=== PATIENT | female | born 1965 | race Caucasian/White ===

== ENCOUNTER 2018-08-07 15:14 | Emergency (ER) | payer OTHER, MEDICAID, SELFPAY ==
[2018-08-07 15:31] VITALS: BP 119/87; PULSE 99; RESP 20; TEMP 36.8; O2SAT 98; BMI 37.7
--- NOTE | 2018-08-07 16:08 | ED_ITS ---
HPI - Nausea/Vomiting/Diarrhea <Monica Cano PA-C - Last Filed: 08/07/18 20:57> General Stated complaint: diarrhea [id number] uncontrolable Time Seen by Provider: 08/07/18 15:44 Source: patient Mode of arrival: ambulatory Limitations: no limitations History of Present Illness HPI Narrative: This 52-year-old female comes to ED secondary to greater than one-month history of diarrhea. She states that this has been intermittent, increasingly malodorous. There is mucus in the stools. She states initially there was more blood in the stool, now minimal (states she has had chronic blood in the stools for many years). Initially more explosive to where she could not even get to the bathroom. She states that she has seen her PCP for this and blood in the stools and actually has panendoscopy pending. She was given prescription anti diarrheal after Imodium stopped working and she states this is not helping at this point. She thinks that some foods may worsen symptoms as she had chocolate cake last night and states she has had approximately 10 watery stools today that smell of ?sulfur?. She has been trying to eat and drink normally but states she has not had much fluid today. She denies abdominal pain. She denies any nausea or vomiting but states she has had a lot of belchin g. She denies any known fever, chills, sweats. She has asthma and was just treated for some upper respiratory infection, denies new chest pain, dyspnea, pain or swelling in the extremities that are new. She denies any recent travel or known exposures. She denies any recent antibiotics. She states that stool studies have not been done at this point. 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 She states that she did not take her metformin last night Related Data Home Medications Medication Instructions Recorded Confirmed acetaminophen 325 - 650 mg PO Q6HP PRN 08/07/18 08/07/18 albuterol sulfate 2 puff INHALATION Q4H PRN 08/07/18 08/07/18 benzonatate 100 mg PO TID PRN 08/07/18 08/07/18 cetirizine 10 mg PO DAILY 08/07/18 08/07/18 clotrimazole [3-Day Vaginal] 08/07/18 cyclobenzaprine 10 mg PO TID PRN 08/07/18 08/07/18 fluticasone propion-salmeterol 1 puff INHALATION BID 08/07/18 08/07/18 [Advair HFA] gabapentin 600 mg PO DAILY 08/07/18 08/07/18 gabapentin 900 mg PO BID 08/07/18 08/07/18 ibuprofen 800 mg PO TID 08/07/18 08/07/18 liothyronine 100 mcg PO DAILY 08/07/18 08/07/18 metformin 500 mg PO BID 08/07/18 08/07/18 omeprazole 40 mg PO BID 08/07/18 08/07/18 Previous Rx's Medication Instructions Recorded cholestyramine (with sugar) 4 gram PO BID #378 gram 08/07/18 Allergies Allergy/AdvReac Type Severity Reaction Status Date / Time codeine [CODEINE] Allergy Unknown Unverified 05/22/17 12:44 fluconazole [From DIFLUCAN] Allergy Unknown Unverified 05/22/17 12:44 morphine [MORPHINE] Allergy Unknown Unverified 05/22/17 12:44 Penicillins [PENICILLINS] Allergy Unknown Unverified 05/22/17 12:44 All Opiates per patient Allergy Uncoded 08/07/18 15:41 Review of Systems <Monica Cano PA-C - Last Filed: 08/07/18 20:57> Review of Systems ROS Unobtainable: All systems reviewed & are unremarkable except as noted in HPI and below PFSH <Monica Cano PA-C - Last Filed: 08/07/18 20:57> Medical History (Updated 08/07/18 @ 18:51 by Monica Cano PA-C) Asthma (Chronic) Fibromyalgia (Chronic) Diabetic neuropathy (Chronic) Uncontrolled diabetes mellitus (Chronic) Surgical History (Updated 08/07/18 @ 16:13 by Monica Cano PA-C) S/P section (Resolved) S/P jaren (Resolved) Social History Smoking Status: Current every day smoker Social History Smoking Status: Current every day smoker Exam <MELY Lin Last Filed: 08/07/18 20:57> Narrative Exam Narrative: GENERAL APPEARANCE: Patient resting comfortably, in no distress. HEENT: PERRL, EOMI, no scleral icterus, normal oropharynx NECK: Supple, no masses LUNGS: Clear to auscultation bilaterally. HEART: Rate and rhythm regular, normal S1 and S2, no S3 or S4. ABDOMEN: Soft, nontender, nondistended, bowel sounds present x 4 quadrants, no masses palpable EXTREMITIES: No edema, no calf tenderness DERMATOLOGIC: No jaundice or exanthem NEUROLOGIC: Alert and oriented with normal speech and coordination Initial Vital Signs Initial Vital Signs: Vital Signs Temperature 98.2 F 08/07/18 15:31 Pulse Rate 99 H 08/07/18 15:31 Respiratory Rate 20 08/07/18 15:31 Blood Pressure 119/87 08/07/18 15:31 Pulse Oximetry 98 08/07/18 15:31 <Lucretia Sauceda DO - Last Filed: 08/08/18 08:57> Initial Vital Signs Initial Vital Signs: Vital Signs Temperature 98.2 F 08/07/18 15:31 Pulse Rate 99 H 08/07/18 15:31 Respiratory Rate 20 08/07/18 15:31 Blood Pressure 119/87 08/07/18 15:31 Pulse Oximetry 98 08/07/18 15:31 Course <MELY Lin Last Filed: 08/07/18 20:57> Additional Information: Patient appears stable while in the department. She actually left the department to go smoke while waiting for results and returned. No pathogens found on GI panel acute findings on lab work. She already has consultation for panendoscopy scheduled and advised next step is to proceed with that. Given a prescription for cholestyramine to try in the interim. Orders Ordered: Discontinued Medications Sodium Chloride (Normal Saline 0.9%) 1,000 mls @ 1,000 mls/hr IV BOLUS ONE Stop: 08/07/18 16:58 Last Infusion: 08/07/18 17:35 Dose: 0 mls/hr Admin: 08/07/18 16:35 Dose: 1,000 mls/hr Vital Signs - 8 hr 08/07/18 15:31 08/07/18 16:41 08/07/18 19:22 Temperature 98.2 F Pulse Rate 99 H 85 85 Respiratory Rate 20 Blood Pressure 119/87 130/84 Blood Pressure [Right Arm] 94/63 Pulse Oximetry 98 100 96 <Lucretia Sauceda DO - Last Filed: 08/08/18 08:57> Orders Ordered: Discontinued Medications Sodium Chloride (Normal Saline 0.9%) 1,000 mls @ 1,000 mls/hr IV BOLUS ONE Stop: 08/07/18 16:58 Last Infusion: 08/07/18 17:35 Dose: 0 mls/hr Admin: 08/07/18 16:35 Dose: 1,000 mls/hr Vital Signs - 8 hr 08/07/18 15:31 08/07/18 16:41 08/07/18 19:22 Temperature 98.2 F Pulse Rate 99 H 85 85 Respiratory Rate 20 Blood Pressure 119/87 130/84 Blood Pressure [Right Arm] 94/63 Pulse Oximetry 98 100 96 MDM - Nausea/Vomiting/Diarrhea <Monica Cano PA-C - Last Filed: 08/07/18 20:57> Lab Data Result diagrams: 08/07/18 15:40 08/07/18 15:40 Lab Results 08/07/18 08/07/18 08/07/18 Range/Units 15:40 15:40 16:28 WBC 8.4 (4.5-11.0) X10^3/uL RBC 5.57 H (4.0-5.2) X10^6/uL Hgb 16.7 H (12.0-16.0) g/dL Hct 50.2 H (36-46) % MCV 90.1 (80-100) fL MCH 30.0 (26-34) PG MCHC 33.3 (30-36) % RDW 13.3 (11.6-14.8) % Plt Count 257 (150-400) X10^3/uL Neut % (Auto) 63.7 (50-75) % Lymph % (Auto) 29.7 (25-40) % [place] % (Auto) 4.4 (3-14) % Eos % (Auto) 1.1 L (2-4) % Baso % (Auto) 1.1 (0-2) % Neut # (Auto) 5400 (5047-4881) /uL Lymph # (Auto) 2500 (3603-0004) /uL [place] # (Auto) 400 (0-900) /uL Eos # (Auto) 100 (0-450) /uL Baso # (Auto) 100 (0-100) /uL RBC Morphology Normal morphology Sodium 139 (137-145) mmol/L Potassium 4.0 (3.4-5.1) mmol/L Chloride 99 (98-107) mmol/L Carbon Dioxide 30 (22-32) mmol/L BUN 16 (7-17) mg/dL Creatinine 0.40 L (0.52-1.04) mg/dL Estimated GFR > 60.0 (>60) mL/min BUN/Creatinine Ratio 40.0 H (6-22) Glucose 331 H (70-100) mg/dL Calcium 9.5 (8.4-10.2) mg/dL Magnesium 1.4 L (1.6-2.3) mg/dL Total Bilirubin 0.7 (0.2-1.3) mg/dL AST 31 (14-36) IU/L ALT 23 (9-52) IU/L Alkaline Phosphatase 111 (38-126) U/L Total Protein 7.5 (6.3-8.2) g/dL Albumin 4.3 (3.5-5.0) g/dL Globulin 3.2 (1.7-4.1) g/dL Albumin/Globulin Ratio 1.3 (1.0-2.8) Stl C. cayetanensis PCR Not detected (Not Detect) Stool Rotavirus (PCR) Not detected (Not Detect) Stool Adenovirus (PCR) Not detected (Not Detect) Stool Astrovirus (PCR) Not detected (Not Detect) Stool Cryptosporidium PCR Not detected (Not Detect) Stl E.coli Shiga Tox PCR Not detected (Not Detect) St Sh/Enteroin Ecoli PCR Not detected (Not Detect) Stool E coli O157 PCR TNP Stl Enterotoxigenic E PCR Not detected (Not Detect) Stool EPEC (PCR) Not detected (Not Detect) Stl E. histolytica PCR Not detected (Not Detect) Stool Giardia Lamblia PCR Not detected (Not Detect) Stl P. shigelloides PCR Not detected (Not Detect) St Y.enterocolitica PCR Not detected (Not Detect) Stool Vibrio (PCR) Not detected (Not Detect) Stl Vibrio cholerae PCR Not detected (Not Detect) Stl Enteroaggr Ecoli PCR Not detected (Not Detect) Stl Norovirus GI/GII PCR Not detected (Not Detect) Campylobacter (PCR) Not detected (Not Detect) C. difficile Tox (PCR) Not detected (Not Detect) Salmonella (PCR) Not detected (Not Detect) <Lucretia Komal, DO - Last Filed: 08/08/18 08:57> Lab Data Lab Results 08/07/18 08/07/18 08/07/18 Range/Units 15:40 15:40 16:28 WBC 8.4 (4.5-11.0) X10^3/uL RBC 5.57 H (4.0-5.2) X10^6/uL Hgb 16.7 H (12.0-16.0) g/dL Hct 50.2 H (36-46) % MCV 90.1 (80-100) fL MCH 30.0 (26-34) PG MCHC 33.3 (30-36) % RDW 13.3 (11.6-14.8) % Plt Count 257 (150-400) X10^3/uL Neut % (Auto) 63.7 (50-75) % Lymph % (Auto) 29.7 (25-40) % [place] % (Auto) 4.4 (3-14) % Eos % (Auto) 1.1 L (2-4) % Baso % (Auto) 1.1 (0-2) % Neut # (Auto) 5400 (7876-0425) /uL Lymph # (Auto) 2500 (0976-7163) /uL [place] # (Auto) 400 (0-900) /uL Eos # (Auto) 100 (0-450) /uL Baso # (Auto) 100 (0-100) /uL RBC Morphology Normal morphology Sodium 139 (137-145) mmol/L Potassium 4.0 (3.4-5.1) mmol/L Chloride 99 (98-107) mmol/L Carbon Dioxide 30 (22-32) mmol/L BUN 16 (7-17) mg/dL Creatinine 0.40 L (0.52-1.04) mg/dL Estimated GFR > 60.0 (>60) mL/min BUN/Creatinine Ratio 40.0 H (6-22) Glucose 331 H (70-100) mg/dL Calcium 9.5 (8.4-10.2) mg/dL Magnesium 1.4 L (1.6-2.3) mg/dL Total Bilirubin 0.7 (0.2-1.3) mg/dL AST 31 (14-36) IU/L ALT 23 (9-52) IU/L Alkaline Phosphatase 111 (38-126) U/L Total Protein 7.5 (6.3-8.2) g/dL Albumin 4.3 (3.5-5.0) g/dL Globulin 3.2 (1.7-4.1) g/dL Albumin/Globulin Ratio 1.3 (1.0-2.8) Stl C. cayetanensis PCR Not detected (Not Detect) Stool Rotavirus (PCR) Not detected (Not Detect) Stool Adenovirus (PCR) Not detected (Not Detect) Stool Astrovirus (PCR) Not detected (Not Detect) Stool Cryptosporidium PCR Not detected (Not Detect) Stl E.coli Shiga Tox PCR Not detected (Not Detect) St Sh/Enteroin Ecoli PCR Not detected (Not Detect) Stool E coli O157 PCR TNP Stl Enterotoxigenic E PCR Not detected (Not Detect) Stool EPEC (PCR) Not detected (Not Detect) Stl E. histolytica PCR Not detected (Not Detect) Stool Giardia Lamblia PCR Not detected (Not Detect) Stl P. shigelloides PCR Not detected (Not Detect) St Y.enterocolitica PCR Not detected (Not Detect) Stool Vibrio (PCR) Not detected (Not Detect) Stl Vibrio cholerae PCR Not detected (Not Detect) Stl Enteroaggr Ecoli PCR Not detected (Not Detect) Stl Norovirus GI/GII PCR Not detected (Not Detect) Campylobacter (PCR) Not detected (Not Detect) C. difficile Tox (PCR) Not detected (Not Detect) Salmonella (PCR) Not detected (Not Detect) Discharge Plan Departure Patient Disposition: Home Clinical Impression: Diarrhea Qualifiers: Diarrhea type: unspecified type Qualified Code(s): R19.7 - Diarrhea, unspecified Discharge Date/Time: 08/07/18 19:23 Interventions: ED Discharge Assessment Last Done: 08/07/18 19:22 Instructions: DI for Diarrhea and Traveler's Diarrhea -- Adult, Gastroenteritis Diet Activity Restrictions/Additional Instructions: As we talked about, you should return to the closest emergency department should you have acutely worsening symptoms or new symptoms such as fever or vomiting. Otherwise, please drink plenty of clear fluids and stick to a bland diet, i.e. bananas, and sweetened applesauce, broth, toast. Take your diabetes medicines. I have prescribed cholestyramine for you to try for the diarrhea will you are waiting consultation (sent to [facility]). You should proceed with colonoscopy as you have planned as that would typically be the next step in testing. Prescriptions: New cholestyramine (with sugar) 4 gram powder 4 gram PO BID Qty: 378 RF: 0 No Action cyclobenzaprine 10 mg tablet 10 mg PO TID PRN (Reason: Pain, Severe) RF: 0 metformin 500 mg tablet 500 mg PO BID RF: 0 cetirizine 10 mg tablet 10 mg PO DAILY RF: 0 ibuprofen 800 mg tablet 800 mg PO TID RF: 0 benzonatate 100 mg capsule 100 mg PO TID PRN (Reason: Cough) RF: 0 liothyronine 50 mcg tablet 100 mcg PO DAILY RF: 0 gabapentin 300 mg capsule 900 mg PO BID RF: 0 gabapentin 300 mg capsule 600 mg PO DAILY RF: 0 albuterol sulfate 90 mcg/actuation HFA aerosol inhaler 2 puff inhalation Q4H PRN (Reason: Wheezing) RF: 0 3-Day Vaginal 2 % cream RF: 0 Advair HFA 45-21 mcg/actuation HFA aerosol inhaler 1 puff inhalation BID RF: 0 omeprazole 40 MG capsule,delayed release(DR/EC) 40 mg PO BID RF: 0 acetaminophen 325 MG tablet 325 - 650 mg PO Q6HP PRN (Reason: pain) RF: 0 Referrals: Garima Bergman MD [Physician] - <Lucretia Sauceda DO - Last Filed: 08/08/18 08:57> Cosign ED Attending Lanature Attestation: I was immediately available in the department for consultation. Documentation has been reviewed. I agree with assessment and plan.
[2018-08-07 16:16] LABS: Alanine Aminotransferase 23 IU/L (9-52); Albumin 4.3 g/dL (3.5-5.0); Albumin Globulin Ratio 1.3 (1.0-2.8); Alkaline Phosphatase 111 U/L (38-126); Aspartate Aminotransferase 31 IU/L (14-36); Bilirubin Total 0.7 mg/dL (0.2-1.3); Blood Urea Nitrogen 16 mg/dL (7-17); Calcium 9.5 mg/dL (8.4-10.2); Carbon Dioxide 30 mmol/L (22-32); Chloride 99 mmol/L (98-107); Estimated Glomerular Filt Rate > 60.0 mL/min (>60); Globulin 3.2 g/dL (1.7-4.1); Glucose 331 mg/dL (70-100); HEMOLYSIS 37 (0-50); Magnesium 1.4 mg/dL (1.6-2.3); Sodium 139 mmol/L (137-145); Total Protein 7.5 g/dL (6.3-8.2)
[2018-08-07 16:30] LABS: Basophils Absolute Auto 100 /uL (0-100); Basophils Percent Auto 1.1 % (0-2); Eosinophils Absolute Auto 100 /uL (0-450); Eosinophils Percent Auto 1.1 % (2-4); Hematocrit 50.2 % (36-46); Hemoglobin 16.7 g/dL (12.0-16.0); Lymphocytes Absolute Auto 2500 /uL (1100-4500); Lymphocytes Percent Auto 29.7 % (25-40); Mean Corpuscular HGB Conc 33.3 % (30-36); Mean Corpuscular Volume 90.1 fL (80-100); Monocytes Absolute Auto 400 /uL (0-900); Monocytes Percent Auto 4.4 % (3-14); Neutrophils Absolute Auto 5400 /uL (1500-7000); Neutrophils Percent Auto 63.7 % (50-75); Platelet Count 257 X10^3/uL (150-400); Red Blood Cell Count 5.57 X10^6/uL (4.0-5.2); Red Cell Distribution Width 13.3 % (11.6-14.8); White Blood Cell Count 8.4 X10^3/uL (4.5-11.0)
[2018-08-07] MEDS: SODIUM CHLORIDE 0.9% 1,000 ML 1000 ML IV (16:35)
[2018-08-07 16:41] VITALS: BP 94/63; PULSE 85; O2SAT 100
[2018-08-07 16:53] LABS: Add Manual Diff / Slide Review SLIDE REVIEW
[2018-08-07 16:54] LABS: RBC Morphology Normal Morphology
[2018-08-07 18:10] LABS: Adenovirus F 40/41 Not Detected (Not Detect); Astrovirus Not Detected (Not Detect); Campylobacter Not Detected (Not Detect); Clostridium difficile toxin AB Not Detected (Not Detect); Cryptosporidium Not Detected (Not Detect); Cyclospora cayetanensis Not Detected (Not Detect); Entamoeba histolytica Not Detected (Not Detect); Enteroaggregative E.coli Not Detected (Not Detect); Enteropathogenic E.coli Not Detected (Not Detect); Enterotoxigenic E.coli It/st Not Detected (Not Detect); Giardia lamblia Not Detected (Not Detect); Norovirus GI/GII Not Detected (Not Detect); Plesiomonsa shigelloides Not Detected (Not Detect); Rotavirus A Not Detected (Not Detect); Salmonella Not Detected (Not Detect); Shiga-like toxin-prod E.coli Not Detected (Not Detect); Shigella/Enteroinvasive E.coli Not Detected (Not Detect); Vibrio Not Detected (Not Detect); Vibrio cholerae Not Detected (Not Detect); Yersinia enterocolitica Not Detected (Not Detect)
--- NOTE | 2018-08-07 18:43 | PC.NURSE ---
Patient left the department to go smoke friends said. Provider aware and asked security who was nearby to go and find the patient, giving them the option of returning or being discharged AMA. Patient came back to room and provider is talking with her now.
[2018-08-07 19:22] VITALS: BP 130/84; PULSE 85; O2SAT 96
== END 2018-08-07 19:23 | disposition home or self-care (01) ==
PROVIDERS: Emergency Provider Internal Medicine
DX: R19.7 Diarrhea, unspecified (principal)
CPT/HCPCS: 36591; 80053; 83735; 85025; 87507; 96360; 99283

== ENCOUNTER 2018-12-20 15:37 | Emergency (ER) | payer OTHER, MEDICAID, SELFPAY ==
--- NOTE | 2018-12-20 16:37 | DI.RAD.S_ITS ---
PROCEDURE: XR CHEST 1V INDICATIONS: Cough, short of breath TECHNIQUE: One view of the chest was acquired. COMPARISON: None. FINDINGS: Surgical changes and devices: None. Lungs and pleura: Lungs are clear. No pleural effusions or pneumothorax. Mediastinum: Mediastinal contours appear normal. Heart size is normal. Bones and chest wall: No suspicious bony lesions. Overlying soft tissues appear unremarkable. IMPRESSION: Portable chest within normal limits. Dictated by: Elias Goldstein M.D. on 12/20/2018 at 15:53 Approved by: Elias Goldstein M.D. on 12/20/2018 at 15:54
--- NOTE | 2018-12-20 16:46 | ED_ITS ---
HPI - URI/Sore Throat <Renetta BarkerANDREW - Last Filed: 12/20/18 21:29> General Chief Complaint: Upper Respiratory Symptoms Stated Complaint: thinks she has pneumonia, bad at night Time Seen by Provider: 12/20/18 16:20 Source: patient Mode of arrival: Ambulatory History of Present Illness HPI Narrative: 52-year-old female with a history of asthma, diabetes, meth use, and approximately 18 pack years of smoking, presents to the emergency department complaining of a cough for the past 3 weeks. She states is recently started as an upper respiratory tract infection with nasal congestion and sore throat but then her cough has continued. She states this feels dry and occasionally productive with small amount of white-yellow sputum. She was seen a week ago by her primary care provider in given prednisone which she completed the course but denies any improvement. She states she was given a nebulizer as well which has improved her symptoms but has made her shaky. She denies any fevers, chills, nausea, vomiting, diarrhea, chest pressure, chest pain, or other concerns. She states her cough is worse when she lays down and states it is difficult to fall asleep. Additionally, she states she coughs so hard that she occasionally feels dizzy after coughing fits. Related Data Home Medications Medication Instructions Recorded Confirmed acetaminophen 325 - 650 mg PO Q6HP PRN 08/07/18 08/07/18 albuterol sulfate 2 puff INHALATION Q4H PRN 08/07/18 08/07/18 benzonatate 100 mg PO TID PRN 08/07/18 08/07/18 cetirizine 10 mg PO DAILY 08/07/18 08/07/18 clotrimazole [3-Day Vaginal] 08/07/18 cyclobenzaprine 10 mg PO TID PRN 08/07/18 08/07/18 fluticasone propion-salmeterol 1 puff INHALATION BID 08/07/18 08/07/18 [Advair HFA] gabapentin 600 mg PO DAILY 08/07/18 08/07/18 gabapentin 900 mg PO BID 08/07/18 08/07/18 ibuprofen 800 mg PO TID 08/07/18 08/07/18 liothyronine 100 mcg PO DAILY 08/07/18 08/07/18 metformin 500 mg PO BID 08/07/18 08/07/18 omeprazole 40 mg PO BID 08/07/18 08/07/18 Previous Rx's Medication Instructions Recorded cholestyramine (with sugar) 4 gram PO BID #378 gram 08/07/18 doxycycline hyclate 100 mg PO BID 7 Days #14 cap 12/20/18 Allergies Allergy/AdvReac Type Severity Reaction Status Date / Time codeine [CODEINE] Allergy Unknown Unverified 05/22/17 12:44 fluconazole [From DIFLUCAN] Allergy Unknown Unverified 05/22/17 12:44 morphine [MORPHINE] Allergy Unknown Unverified 05/22/17 12:44 Penicillins [PENICILLINS] Allergy Unknown Unverified 05/22/17 12:44 All Opiates per patient Allergy Uncoded 08/07/18 15:41 Review of Systems <ANDREW Plummer - Last Filed: 12/20/18 21:29> Review of Systems Narrative: REVIEW OF SYSTEMS: GENERAL: Denies fevers. HENT: No head trauma or hearing loss. EYES: No loss of vision, double vision, eye pain, irritation or discharge. CARDIOVASCULAR: No chest pain or syncope. RESPIRATORY: Complains of cough, see HPI. GASTROINTESTINAL: No nausea, vomiting, diarrhea, or constipation. MUSCULOSKELETAL: No weakness or injury. INTEGUMENTARY: No rash, lesions, or pruritus. NEURO: No memory loss, or confusion. Patient History <ANDREW Plummer - Last Filed: 12/20/18 21:29> Medical History Asthma (Chronic) Diabetic neuropathy (Chronic) Fibromyalgia (Chronic) Uncontrolled diabetes mellitus (Chronic) Surgical History S/P section (Resolved) S/P jaren (Resolved) Social History Smoking Status: Current every day smoker alcohol intake frequency: holidays/special occasions only Substance Use Type: methamphetamine Exam <ANDREW Plummer - Last Filed: 12/20/18 21:29> Narrative Exam Narrative: PHYSICAL EXAMINATION: GENERAL: Well groomed, alert, and cooperative. Answers questions promptly and appropriately. Vital signs noted. HENT: Normocephalic, atraumatic. Ear canals patent. TMs intact without mucus or erythema. Oropharynx with slight erythema.. Tonsils are not present. EYES: Conjunctiva pink, sclera white, no periorbital swelling. No discharge. CHEST: Normal to inspection and without deformities. CARDIOVASCULAR: S1 and S2 sounds normal. Regular rate and rhythm, no murmurs, clicks, or bruits. RESPIRATORY: Normal respiratory rate, trachea midline, airway patent. No st ridor, nasal flaring or accessory muscle use. Able to speak in full sentences. Lungs are clear in all gomez without wheeze, rhonchi, or crackles. Productive cough noted throughout examination. MUSCULOSKELETAL: Normal gait and coordination. Equal tone and mass bilaterally. EXTREMITIES: Moves all extremities. SKIN: Warm, dry, soft, appropriate color for ethnicity. No lesions, rashes, or wounds. NEURO: Alert and Oriented X 3. Good coordination. No ataxia or cognitive issues. PSYCH: Appropriate affect and mood. Initial Vital Signs Initial Vital Signs: Vital Signs Temperature 98.1 F 12/20/18 16:50 Pulse Rate 114 H 12/20/18 16:50 Respiratory Rate 22 12/20/18 16:50 Blood Pressure 124/95 H 12/20/18 16:50 Pulse Oximetry 97 12/20/18 16:50 <Lucretia Sauceda DO - Last Filed: 12/21/18 07:52> Initial Vital Signs Initial Vital Signs: Vital Signs Temperature 98.1 F 12/20/18 16:50 Pulse Rate 114 H 12/20/18 16:50 Respiratory Rate 22 12/20/18 16:50 Blood Pressure 124/95 H 12/20/18 16:50 Pulse Oximetry 97 12/20/18 16:50 Course <ANDREW Plummer - Last Filed: 12/20/18 21:29> Course Course Narrative: Patient was given Maalox and lidocaine to help with throat pain, she reported decreased symptoms after administration. Patient also reported improved symptoms of cough after DuoNeb administration. Orders Ordered: Discontinued Medications Albuterol/Ipratropium (Duoneb) 3 ml INH NOW ONE Stop: 12/20/18 16:38 Last Admin: 12/20/18 16:49 Dose: 3 ml Documented by: BERNABE Soni Hydrox/Mg Hydrox/Simethicone 20 ml/ Lidocaine HCl 15 ml 0 ml PO NOW ONE Stop: 12/20/18 17:21 Last Admin: 12/20/18 17:45 Dose: 35 ml Documented by: SANDRO Consultations Consultation #1: Patient staffed with Dr. Sauceda Vital Signs Vital signs: Vital Signs - 8 hr 12/20/18 16:50 Temperature 98.1 F Pulse Rate 104 H Respiratory Rate 22 Blood Pressure 124/95 H Pulse Oximetry 97 <Lucretia Sauceda DO - Last Filed: 12/21/18 07:52> Orders Ordered: Discontinued Medications Albuterol/Ipratropium (Duoneb) 3 ml INH NOW ONE Stop: 12/20/18 16:38 Last Admin: 12/20/18 16:49 Dose: 3 ml Documented by: BERNABE Al Hydrox/Mg Hydrox/Simethicone 20 ml/ Lidocaine HCl 15 ml 0 ml PO NOW ONE Stop: 12/20/18 17:21 Last Admin: 12/20/18 17:45 Dose: 35 ml Documented by: SANDRO Vital Signs Vital signs: Vital Signs - 8 hr 12/20/18 16:50 Temperature 98.1 F Pulse Rate 104 H Respiratory Rate 22 Blood Pressure 124/95 H Pulse Oximetry 97 MDM - URI/Sore Throat <ANDREW Plummer - Last Filed: 12/20/18 21:29> Medical Records Attestation: I reviewed the patient's medical records. Lab Data Attestation: I reviewed the patient's lab results. Imaging Data Chest x-ray: Radiologist's impression: [address] [address] XRay Report Signed Patient: Mirta Escalante [facility]#: [id number] : 1965Acct:[id number] Age/Sex: 52 / FDate of Service: 12/20/18 Loc: ED Accession Number: [id number] Procedure: XR chest 1V Ordering Provider: Renetta Barker PROCEDURE: XR CHEST 1V INDICATIONS: Cough, short of breath TECHNIQUE: One view of the chest was acquired. COMPARISON: None. FINDINGS: Surgical changes and devices: None. Lungs and pleura: Lungs are clear. No pleural effusions or pneumothorax. Mediastinum: Mediastinal contours appear normal. Heart size is normal. Bones and chest wall: No suspicious bony lesions. Overlying soft tissues appear unremarkable. IMPRESSION: Portable chest within normal limits. Dictated by: Elias Goldstein M.D. on 12/20/2018 at 15:53 Approved by: Elias Goldstein M.D. on 12/20/2018 at 15:54 [facility] Narrative Medical decision making narrative: Differential includes atypical pneumonia, bronchitis, and COPD exacerbation. Increased suspicion for bacterial infection due to risk factors with smoking, prolonged illness, productive cough, and intermittent worsening symptoms, as well as no improvement with prednisone. Less likely atypical pneumonia due to lack of findings on chest x-ray. Patient was prescribed doxycycline. She was instructed to follow up with her primary care provider in the next week for re-evaluation. Patient was encouraged to use her albuterol inhaler every 4-6 hours as needed for bronchospasm and cough. Return precautions given for new or worsening symptoms. Discharge Plan Departure Patient Disposition: Home Clinical Impression: Atypical pneumonia Discharge Date/Time: 12/20/18 17:45 Instructions: DI for Bronchiolitis, DI for Atypical Pneumonia Activity Restrictions/Additional Instructions: Thank you for entrusting me with your care today. As discussed, a chest x-ray was negative for any lung infiltrates or pneumonia. It is possible that your symptoms are caused by a bacterial infection such as bronchitis or atypical pneumonia (not visible on chest x-ray). I prescribed you an antibiotic to take. Please continue taking cough medication during the evening to help with your cough. Use your albuterol inhaler as needed every 4-6 hours. Follow up with your primary care provider in the next few weeks for re-evaluation. Return emergency department if you develop chest pain, wheezing, syncope, or new or worsening symptoms. Prescriptions: New doxycycline hyclate 100 mg capsule 100 mg PO BID 7 Days Qty: 14 RF: 0 No Action cyclobenzaprine 10 mg tablet 10 mg PO TID PRN (Reason: Pain, Severe) RF: 0 metformin 500 mg tablet 500 mg PO BID RF: 0 cetirizine 10 mg tablet 10 mg PO DAILY RF: 0 ibuprofen 800 mg tablet 800 mg PO TID RF: 0 benzonatate 100 mg capsule 100 mg PO TID PRN (Reason: Cough) RF: 0 liothyronine 50 mcg tablet 100 mcg PO DAILY RF: 0 gabapentin 300 mg capsule 900 mg PO BID RF: 0 gabapentin 300 mg capsule 600 mg PO DAILY RF: 0 albuterol sulfate 90 mcg/actuation HFA aerosol inhaler 2 puff inhalation Q4H PRN (Reason: Wheezing) RF: 0 3-Day Vaginal 2 % cream RF: 0 Advair HFA 45-21 mcg/actuation HFA aerosol inhaler 1 puff inhalation BID RF: 0 omeprazole 40 MG capsule,delayed release(DR/EC) 40 mg PO BID RF: 0 acetaminophen 325 MG tablet 325 - 650 mg PO Q6HP PRN (Reason: pain) RF: 0 cholestyramine (with sugar) 4 gram powder 4 gram PO BID Qty: 378 RF: 0
[2018-12-20] MEDS: ALBUTEROL/IPRATROPIUM 3 ML AMPUL INH (16:49)
[2018-12-20 16:50] VITALS: BP 124/95; PULSE 104; PULSE 114; RESP 22; TEMP 36.7; O2SAT 97; BMI 40.2
[2018-12-20] MEDS: MAG HYDROX/ALUMINUM/SIMETH SUS 20 ML, LIDOCAINE VISCOUS 2% 15 ML PO (17:45)
== END 2018-12-20 17:45 | disposition home or self-care (01) ==
PROVIDERS: Emergency Provider Nurse Practitioner
DX: J18.9 Pneumonia, unspecified organism (principal)
CPT/HCPCS: 71045; 94150; 94640; 99282; 99283

== ENCOUNTER 2019-07-14 10:30 | Emergency (ER) | payer OTHER, MEDICAID, SELFPAY ==
[2019-07-14 10:48] VITALS: BP 148/104; PULSE 114; RESP 14; TEMP 36.1; O2SAT 98
--- NOTE | 2019-07-14 11:01 | ED_ITS ---
HPI - Psych General Chief Complaint: Psychiatric Symptoms Stated Complaint: detox screening,'nervous breakdown' Time Seen by Provider: 07/14/19 10:33 Source: patient Mode of arrival: Ambulatory Limitations: no limitations History of Present Illness HPI Narrative: 53-year-old female former smoker with history of methamphetamine abuse presents with a chief complaint of requiring clearance prior to presenting to [facility]. She states that she has already contacted them and they have an available bed. She states that she needs [place] is creating and a urinalysis. She has no runny nose, sore throat or cough. She denies any chest pain or shortness of breath. She denies any travel or exposure to persons known to have coronavirus. She denies any dysuria, frequency or urgency. She states she last used methamphetamines on Saturday. She states that she frequently uses illicit drugs to cope with ongoing depression. She denies vaginal pain, bleeding, or discharge. complaint: other Onset (ago): day(s) Duration: constant History of same: Yes Relieving factors: none Exacerbating factors: none Context: recent drug abuse Associated psychiatric symptoms: depression Associated symptoms: denies other symptoms Treatments prior to arrival: none If self harm: admits thoughts of self harm Details of plan: she does have thoughts of self harm, but states she would never act on them and has no plan Related Data Home Medications Medication Instructions Recorded Confirmed acetaminophen 325 - 650 mg PO Q6HP PRN 08/07/18 08/07/18 albuterol sulfate 2 puff INHALATION Q4H PRN 08/07/18 08/07/18 benzonatate 100 mg PO TID PRN 08/07/18 08/07/18 cetirizine 10 mg PO DAILY 08/07/18 08/07/18 clotrimazole [3-Day Vaginal] 08/07/18 cyclobenzaprine 10 mg PO TID PRN 08/07/18 08/07/18 fluticasone propion-salmeterol 1 puff INHALATION BID 08/07/18 08/07/18 [Advair HFA] gabapentin 600 mg PO DAILY 08/07/18 08/07/18 gabapentin 900 mg PO BID 08/07/18 08/07/18 ibuprofen 800 mg PO TID 08/07/18 08/07/18 liothyronine 100 mcg PO DAILY 08/07/18 08/07/18 metformin 500 mg PO BID 08/07/18 08/07/18 omeprazole 40 mg PO BID 08/07/18 08/07/18 Previous Rx's Medication Instructions Recorded cholestyramine (with sugar) 4 gram PO BID #378 gram 08/07/18 Allergies Allergy/AdvReac Type Severity Reaction Status Date / Time codeine [CODEINE] Allergy Unknown Unverified 05/22/17 12:44 fluconazole [From DIFLUCAN] Allergy Unknown Unverified 05/22/17 12:44 morphine [MORPHINE] Allergy Unknown Unverified 05/22/17 12:44 Penicillins [PENICILLINS] Allergy Unknown Unverified 05/22/17 12:44 All Opiates per patient Allergy Uncoded 08/07/18 15:41 Review of Systems Constitutional Constitutional: Denies chills, Denies fatigue, Denies fever(s), Denies frequent falls, Denies lethargy and Denies weakness Eyes Eyes: Denies change in vision, Denies eye discharge, Denies irritation and Denies loss of vision ENT Ears, Nose, Mouth, and Throat: Denies change in voice, Denies dizziness, Denies neck pain, Denies sore throat and Denies throat swelling Cardiovascular Cardiovascular: Denies chest pain, Denies irregular heart rhythm, Denies lightheadedness, Denies palpitations, Denies dyspnea, Denies dyspnea on exertion and Denies orthopnea Respiratory Respiratory: Denies cough, Denies dyspnea, Denies dyspnea on exertion and Denies wheezing Gastrointestinal Gastrointestinal: Denies abdominal pain, Denies change in bowel habits, Denies diarrhea, Denies nausea and Denies vomiting Genitourinary Genitourinary: Denies hematuria, Denies flank pain, Denies urinary incontinence and Denies urinary urgency Musculoskeletal Musculoskeletal: Denies back pain, Denies muscle weakness, Denies neck pain, Denies numbness and Denies tingling Integumentary/Breasts Skin/Breast: Denies pruritus, Denies erythema, Denies rash and Denies wounds Neurologic Neurologic: Denies behavioral changes, Denies confusion, Denies dizziness, Denies frequent falls, Denies loss of vision, Denies numbness, Denies tingling and Denies weakness Psychiatric Psychiatric: Denies anxiety, Denies behavioral changes, Denies confusion, Reports depression, Denies homicidal ideation and Denies suicidal ideation Endocrine Endocrine: Denies fatigue, Denies flushing and Denies palpitations Hematologic/Lymphatic Hematologic/Lymphatic: Denies easy bruising Allergic/Immunologic Allergic/Immunologic: Denies urticaria, Denies throat swelling and Denies wheezing Patient History Medical History Asthma (Chronic) Diabetic neuropathy (Chronic) Fibromyalgia (Chronic) Uncontrolled diabetes mellitus (Chronic) Surgical History S/P section (Resolved) S/P jaren (Resolved) Social History Smoking Status: Current every day smoker Smoking Status: Current every day smoker alcohol intake frequency: holidays/special occasions only Substance Use Type: former substance user and methamphetamine Exam Narrative Exam Narrative: GENERAL: [53] year old patient appears stated age. Well- nourished, well-developed patient, in mild distress. Tearful HEAD: Atraumatic. Normocephalic. EYES: Pupils equal round and reactive. Extraocular motions intact. No scleral icterus. No injection or drainage. ENT: Nose without bleeding, purulent drainage. Throat without erythema, tonsillar hypertrophy or exudate. Airway patent. NECK: Trachea midline. Non tender CARDIOVASCULAR: Regular rate and rhythm without murmurs, gallops, or rubs. RESPIRATORY: Clear to auscultation. Breath sounds equal bilaterally. No wheezes, rales, or rhonchi. GASTROINTESTINAL: Abdomen soft, non-tender, nondistended. EXTREMITIES: No edema or joint tenderness. BACK: Nontender without deformity or crepitance. No flank tenderness. NEURO: AOx3. SKIN: No rash or erythema of visible areas Initial Vital Signs Initial Vital Signs: Vital Signs Temperature 97 F L 07/14/19 10:48 Pulse Rate 114 H 07/14/19 10:48 Respiratory Rate 14 07/14/19 10:48 Blood Pressure 148/104 H 07/14/19 10:48 Pulse Oximetry 98 07/14/19 10:48 Course Orders Ordered: ED Orders 07/14/19 10:44 Chlamydia Gonorrhea PCR -URINE Stat Test Urine Stat Urinalysis and Microscopic Stat Urine Drug Screen, Rapid Stat 07/14/19 12:00 Consult to HEALTH COMMISSIONER - Food Sampler Stat Vital Signs Vital signs: Vital Signs - 8 hr 07/14/19 10:48 Temperature 97 F L Pulse Rate 114 H Respiratory Rate 14 Blood Pressure 148/104 H Pulse Oximetry 98 MDM - Psych Lab Data Labs: Lab Results 07/14/19 07/14/19 07/14/19 Range/Units 10:44 10:44 10:44 Urine Color Yellow Urine Appearance Cloudy Urine pH 5.0 (4.5-8.0) Ur Specific [place] 1.025 (1.000-1.035) Urine Protein Trace H (Negative) Urine Glucose (UA) 1+ H (Negative) g/dL Urine Ketones Trace H (NEGATIVE) Urine Occult Blood 2+ H (Negative) Urine Nitrate Negative (Negative) Urine Bilirubin Negative (NEGATIVE) Urine Urobilinogen 1.0 (0.2) E.U./dL Ur Leukocyte Esterase Trace H (NEGATIVE) Urine RBC 1-5/hpf (0-5/HPF) Urine WBC 0-1/hpf (0-5/HPF) Ur Squamous Epith Cells 10-30 /hpf H (0-5/HPF) Urine Bacteria Many (>30) H (None) Ur Culture Indicated? Cult not indicated Urine Test Negative (Negative) U Opiates 300ng/mL cut Negative (Negative) Ur Oxycodone Screen Negative (Negative) Urine Methadone Screen Negative (Negative) Ur Barbiturates Screen Negative (Negative) U Tricyclic Antidepress Positive H (Negative) Ur Phencyclidine Scrn Negative (Negative) Ur Amphetamines Screen Positive H (Negative) U Methamphetamines Scrn Positive H (Negative) Ur MDMA Scrn (Ecstasy) Negative (Negative) U Benzodiazepines Scrn Negative (Negative) Urine Cocaine Screen Negative (Negative) U Marijuana (THC) Screen Negative (Negative) Ur Chlamydia DNA (PCR) N gonorrhoeae DNA (PCR) 07/14/19 Range/Units 10:44 Urine Color Urine Appearance Urine pH (4.5-8.0) Ur Specific [place] (1.000-1.035) Urine Protein (Negative) Urine Glucose (UA) (Negative) g/dL Urine Ketones (NEGATIVE) Urine Occult Blood (Negative) Urine Nitrate (Negative) Urine Bilirubin (NEGATIVE) Urine Urobilinogen (0.2) E.U./dL Ur Leukocyte Esterase (NEGATIVE) Urine RBC (0-5/HPF) Urine WBC (0-5/HPF) Ur Squamous Epith Cells (0-5/HPF) Urine Bacteria (None) Ur Culture Indicated? Urine Test (Negative) U Opiates 300ng/mL cut (Negative) Ur Oxycodone Screen (Negative) Urine Methadone Screen (Negative) Ur Barbiturates Screen (Negative) U Tricyclic Antidepress (Negative) Ur Phencyclidine Scrn (Negative) Ur Amphetamines Screen (Negative) U Methamphetamines Scrn (Negative) Ur MDMA Scrn (Ecstasy) (Negative) U Benzodiazepines Scrn (Negative) Urine Cocaine Screen (Negative) U Marijuana (THC) Screen (Negative) Ur Chlamydia DNA (PCR) Not detected N gonorrhoeae DNA (PCR) Not detected Urine Dip Bedside Urine Glucose 500 mg/dl Bedside Urine Bilirubin - Negative Bedside Urine Ketone +/- 5 Urine Specific [place] 1.025 Bedside Urine Occult Blood + Bedside Urine pH 6.0 Bedside Urine Protein +/- 15 Bedside Urine Urobilinogen 1+ 2mg Bedside Urine Nitrite - Negative Bedside Urine Leukocytes +/- 15 Esterase Discharge Plan Departure Patient Disposition: Home Clinical Impression: Depression Discharge Date/Time: 07/14/19 13:07 Instructions: Depression Activity Restrictions/Additional Instructions: *You have been diagnosed with [depression and substance abuse] *What to do: * continue to cabrera medications as directed *Follow up with your primary care provider in 2-3 days, call for an appointment. Let them know you were seen in the Emergency Department and that we ask that you be seen in follow up *Return to ER if you should have any new, worsening or concerning symptoms Prescriptions: No Action cyclobenzaprine 10 mg tablet 10 mg PO TID PRN (Reason: Pain, Severe) RF: 0 metformin 500 mg tablet 500 mg PO BID RF: 0 cetirizine 10 mg tablet 10 mg PO DAILY RF: 0 ibuprofen 800 mg tablet 800 mg PO TID RF: 0 benzonatate 100 mg capsule 100 mg PO TID PRN (Reason: Cough) RF: 0 liothyronine 50 mcg tablet 100 mcg PO DAILY RF: 0 gabapentin 300 mg capsule 900 mg PO BID RF: 0 gabapentin 300 mg capsule 600 mg PO DAILY RF: 0 albuterol sulfate 90 mcg/actuation HFA aerosol inhaler 2 puff inhalation Q4H PRN (Reason: Wheezing) RF: 0 3-Day Vaginal 2 % cream RF: 0 Advair HFA 45-21 mcg/actuation HFA aerosol inhaler 1 puff inhalation BID RF: 0 omeprazole 40 MG capsule,delayed release(DR/EC) 40 mg PO BID RF: 0 acetaminophen 325 MG tablet 325 - 650 mg PO Q6HP PRN (Reason: pain) RF: 0 cholestyramine (with sugar) 4 gram powder 4 gram PO BID Qty: 378 RF: 0 [facility]errals: [facility] [Outside]
[2019-07-14 11:02] LABS: Appearance Urine UA CLOUDY; Bilirubin Urine UA NEGATIVE (NEGATIVE); Color Urine UA YELLOW; Glucose Urine UA 1+ g/dL (Negative); Ketones Urine UA TRACE (NEGATIVE); Leukocyte Esterase Urine UA TRACE (NEGATIVE); Nitrite Urine UA NEGATIVE (Negative); Occult Blood Urine UA 2+ (Negative); Protein Urine UA TRACE (Negative); Specific Gravity Urine UA 1.025 (1.000-1.035)
[2019-07-14 11:08] LABS: Bacteria Urine Many (>30); Culture Indicated Urine Cult Not Indicated; RBC Urine 1-5/HPF (0-5/HPF); Squamous Epithelial Cell Urine 10-30 /HPF (0-5/HPF); WBC Urine 0-1/HPF (0-5/HPF)
[2019-07-14 11:10] LABS: UR Morphine/Opiate cutoff 300 Negative (Negative); Ur Creatinine Normal (Normal); Ur Specific Gravity Normal (Normal); Urine Amphetamines Positive (Negative); Urine Barbiturates Negative (Negative); Urine Benzodiazepines Negative (Negative); Urine Cocaine Negative (Negative); Urine MDMA Negative (Negative); Urine Methadone Negative (Negative); Urine Methamphetamines Positive (Negative); Urine Oxycodone Negative (Negative); Urine Phencyclidine Negative (Negative); Urine Tetrahydrocannabinol Negative (Negative); Urine Tricyclic Antidepressant Positive (Negative); Urine pH Normal (Normal)
--- NOTE | 2019-07-14 12:25 | PC.NURSE ---
Spoke with Dr Chau about patient statements. AERIAL SPRAYER to speak to patient.
[2019-07-14 12:40] LABS: Pregnancy Test Urine Negative (Negative)
--- NOTE | 2019-07-14 12:43 | PC.NURSE ---
Galo from POWER REACTOR OPERATOR is with patient. Pt states she is not suicidal, and that is something that she thinks about but would never do. She wants to have a cigarette.
--- NOTE | 2019-07-14 13:05 | PC.NURSE ---
Pt left without waiting for paperwork. Discharged verbally by Dr. Cat smiling, calm after speaking with Rosana from social work. This RN did not DC patient.
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
[2019-07-14 14:04] LABS: Urine N gonorrhoeae NOT DETECTED
[2019-07-14 14:05] LABS: Urine Chlamydia NOT DETECTED
== END 2019-07-14 13:07 | disposition home or self-care (01) ==
PROVIDERS: Emergency Provider Emergency Medicine
DX: F32.9 Major depressive disorder, single episode, unspecified (principal); F15.10 Other stimulant abuse, uncomplicated
CPT/HCPCS: 80305; 81001; 81003; 81025; 87491; 87591; 99283

== ENCOUNTER 2019-08-28 05:48 | Emergency (ER) | payer OTHER, MEDICAID, SELFPAY ==
--- NOTE | 2019-08-28 06:06 | ED_ITS ---
HPI - Eye Problem General Chief complaint: Eye Problems Stated complaint: eye infection Time Seen by Provider: 08/28/19 05:50 Source: patient Mode of arrival: Ambulatory Limitations: no limitations History of Present Illness HPI Narrative: 53-year-old female daily smoker with history of asthma and mental health issues presents with a chief complaint of drainage from her right eye. She complains that for the past few weeks she has had irritation, mild redness and some drainage from her right eye. She states her vision is affected only if some of the drainage is overlying her pupil. She denies any fever chills. She denies any trauma. She was seen at an outside facility in given erythromycin drops but apparently had an allergic reaction. She denies any foreign body MD chief complaint: eye redness Onset (ago): week(s) Onset description: gradual Duration: constant Location: right eye Eye Symptoms: itching and discharge Place: home Mechanism: none Severity: mild Treatments Prior to Arrival: OTC eye drops Related Data Patient tetanus UTD: Yes Home Medications Medication Instructions Recorded Confirmed acetaminophen 325 - 650 mg PO Q6HP PRN 08/07/18 08/07/18 albuterol sulfate 2 puff INHALATION Q4H PRN 08/07/18 08/07/18 benzonatate 100 mg PO TID PRN 08/07/18 08/07/18 cetirizine 10 mg PO DAILY 08/07/18 08/07/18 clotrimazole [3-Day Vaginal] 08/07/18 cyclobenzaprine 10 mg PO TID PRN 08/07/18 08/07/18 fluticasone propion-salmeterol 1 puff INHALATION BID 08/07/18 08/07/18 [Advair HFA] gabapentin 600 mg PO DAILY 08/07/18 08/07/18 gabapentin 900 mg PO BID 08/07/18 08/07/18 ibuprofen 800 mg PO TID 08/07/18 08/07/18 liothyronine 100 mcg PO DAILY 08/07/18 08/07/18 metformin 500 mg PO BID 08/07/18 08/07/18 omeprazole 40 mg PO BID 08/07/18 08/07/18 Previous Rx's Medication Instructions Recorded cholestyramine (with sugar) 4 gram PO BID #378 gram 08/07/18 Allergies Allergy/AdvReac Type Severity Reaction Status Date / Time codeine [CODEINE] Allergy Unknown Unverified 05/22/17 12:44 fluconazole [From DIFLUCAN] Allergy Unknown Unverified 05/22/17 12:44 morphine [MORPHINE] Allergy Unknown Unverified 05/22/17 12:44 Penicillins [PENICILLINS] Allergy Unknown Unverified 05/22/17 12:44 All Opiates per patient Allergy Uncoded 08/07/18 15:41 Review of Systems Constitutional Constitutional: Denies chills, Denies fatigue, Denies fever(s), Denies frequent falls, Denies lethargy and Denies weakness Eyes Eyes: Denies change in vision, Reports eye discharge, Reports irritation, Reports itchy eyes and Denies loss of vision ENT Ears, Nose, Mouth, and Throat: Denies change in voice, Denies dizziness, Denies neck pain, Denies sore throat and Denies throat swelling Cardiovascular Cardiovascular: Denies chest pain, Denies irregular heart rhythm, Denies lightheadedness, Denies palpitations, Denies dyspnea, Denies dyspnea on exertion and Denies orthopnea Respiratory Respiratory: Denies cough, Denies dyspnea, Denies dyspnea on exertion and Denies wheezing Gastrointestinal Gastrointestinal: Denies abdominal pain, Denies change in bowel habits, Denies diarrhea, Denies nausea and Denies vomiting Musculoskeletal Musculoskeletal: Denies neck pain and Denies numbness Integumentary/Breasts Skin/Breast: Denies pruritus, Denies erythema, Denies rash and Denies wounds Neurologic Neurologic: Denies behavioral changes, Denies confusion, Denies dizziness, Denies frequent falls, Denies loss of vision, Denies numbness and Denies weakness Psychiatric Psychiatric: Denies anxiety, Denies behavioral changes, Denies confusion, Denies depression, Denies homicidal ideation and Denies suicidal ideation Endocrine Endocrine: Denies fatigue, Denies flushing and Denies palpitations Hematologic/Lymphatic Hematologic/Lymphatic: Denies easy bruising Allergic/Immunologic Allergic/Immunologic: Denies urticaria, Reports itchy eyes, Denies throat swelling and Denies wheezing Patient History Medical History (Updated 08/28/19 @ 06:34 by Keith Chau DO) Asthma (Chronic) Diabetic neuropathy (Chronic) Fibromyalgia (Chronic) Uncontrolled diabetes mellitus (Chronic) Surgical History S/P section (Resolved) S/P jaren (Resolved) Social History Smoking Status: Current every day smoker Smoking Status: Current every day smoker alcohol intake frequency: holidays/special occasions only Substance Use Type: former substance user and methamphetamine Exam Narrative Exam Narrative: GEN: AOx3 and in mild distress EYES: Pupils are equal, round, and reactive to light and accommodation. Extraoccular muscles are intact bilaterally. Mild scleral injection of right eye with purulence drainage. Viewed under a Wood's lamp, no obvious foreign bod y. No dye uptake with fluorescein and UV lamp CHEST: Lungs are clear to auscultation bilaterally and free of wheezes, rales, or rhonchi. Heart rate is regular rhythm, there are no murmurs, clicks, rubs, or gallops. There is no chest wall tenderness. ABD: Abdomen is soft and nontender. There is no guarding or rebound. Bowel sounds are normal in all 4 quadrants. There is no mass or organomegaly. EXT: Full painless ROM of all extremities with no loss of sensation or strength. SKIN: Warm, pink, and dry. No erythema or rash Initial Vital Signs Initial Vital Signs: Vital Signs Temperature 98.8 F 08/28/19 06:11 Pulse Rate 104 H 08/28/19 06:11 Respiratory Rate 17 08/28/19 06:11 Blood Pressure 165/102 H 08/28/19 06:11 Pulse Oximetry 99 08/28/19 06:11 Course Orders Ordered: Discontinued Medications Fluorescein Sodium (Ful-Kenisha) 1 mg EYE-RIGHT NOW ONE Stop: 08/28/19 06:06 Proparacaine HCl (Parcaine 0.5% Ophth Marilee) 1 drops EYE-RIGHT NOW ONE Stop: 08/28/19 06:06 Sulfacetamide (Bleph-10 Prepack) 1 bottle MISC SEEINSTR ONE Stop: 08/28/19 06:35 Last Admin: 08/28/19 07:10 Dose: 1 bottle Documented by: JOSÉ Vital Signs Vital signs: Vital Signs - 8 hr 08/28/19 06:11 Temperature 98.8 F Pulse Rate 104 H Respiratory Rate 17 Blood Pressure 165/102 H Pulse Oximetry 99 Discharge Plan Departure Patient Disposition: Home Clinical Impression: Conjunctivitis Qualifiers: Conjunctivitis type: acute Acute conjunctivitis type: unspecified Laterality: right Qualified Code(s): H10.31 - Unspecified acute conjunctivitis, right eye Discharge Date/Time: 08/28/19 07:05 Activity Restrictions/Additional Instructions: *You have been diagnosed with [acute conjunctivitis] *What to do: *Take medications as directed *Follow up with your primary care provider in 2-3 days, call for an appointment. Let them know you were seen in the Emergency Department and that we ask that you be seen in follow up *Return to ER if you should have any new, worsening or concerning symptoms, such as [ ] Prescriptions: No Action cyclobenzaprine 10 mg tablet 10 mg PO TID PRN (Reason: Pain, Severe) RF: 0 metformin 500 mg tablet 500 mg PO BID RF: 0 cetirizine 10 mg tablet 10 mg PO DAILY RF: 0 ibuprofen 800 mg tablet 800 mg PO TID RF: 0 benzonatate 100 mg capsule 100 mg PO TID PRN (Reason: Cough) RF: 0 liothyronine 50 mcg tablet 100 mcg PO DAILY RF: 0 gabapentin 300 mg capsule 900 mg PO BID RF: 0 gabapentin 300 mg capsule 600 mg PO DAILY RF: 0 albuterol sulfate 90 mcg/actuation HFA aerosol inhaler 2 puff inhalation Q4H PRN (Reason: Wheezing) RF: 0 3-Day Vaginal 2 % cream RF: 0 Advair HFA 45-21 mcg/actuation HFA aerosol inhaler 1 puff inhalation BID RF: 0 omeprazole 40 MG capsule,delayed release(DR/EC) 40 mg PO BID RF: 0 acetaminophen 325 MG tablet 325 - 650 mg PO Q6HP PRN (Reason: pain) RF: 0 cholestyramine (with sugar) 4 gram powder 4 gram PO BID Qty: 378 RF: 0
[2019-08-28 06:11] VITALS: BP 165/102; PULSE 104; RESP 17; TEMP 37.1; O2SAT 99; BMI 30.9
[2019-08-28] MEDS: SULFACETAMIDE 10% OPHTH PREPACK 1 BOTTLE MISC (07:10)
== END 2019-08-28 07:05 | disposition home or self-care (01) ==
PROVIDERS: Emergency Provider Emergency Medicine
DX: H10.31 Unspecified acute conjunctivitis, right eye (principal)
CPT/HCPCS: 99281; 99283

== ENCOUNTER 2019-09-16 17:54 | Emergency (ER) | payer OTHER, MEDICAID, SELFPAY ==
[2019-09-16 18:05] VITALS: BP 162/103; PULSE 114; RESP 16; TEMP 36.4; O2SAT 97; BMI 35.2
--- NOTE | 2019-09-16 18:05 | ED_ITS ---
HPI - General Adult General Chief complaint: Toxicology Problem Stated complaint: states has bugs biting her Time Seen by Provider: 09/16/19 18:04 History of Present Illness HPI narrative: 53-year-old woman with a history of PTSD, significant anxiety, depression and methamphetamine use presents complaining of parasitic infections. She states that she has black fly larva under her sclera and coming out through her iris both sides worse when she has not been using because they are ?angry at her and monitor Drug?. There also larva in her hair and her eyelashes. She has multiple videos that she shares that she feels support her claims however in feeling them they are significantly magnified videos mostly with light reflecting into mucous membranes. Related Data Home Medications Medication Instructions Recorded Confirmed acetaminophen 325 - 650 mg PO Q6HP PRN 08/07/18 08/07/18 albuterol sulfate 2 puff INHALATION Q4H PRN 08/07/18 08/07/18 benzonatate 100 mg PO TID PRN 08/07/18 08/07/18 cetirizine 10 mg PO DAILY 08/07/18 08/07/18 clotrimazole [3-Day Vaginal] 08/07/18 cyclobenzaprine 10 mg PO TID PRN 08/07/18 08/07/18 fluticasone propion-salmeterol 1 puff INHALATION BID 08/07/18 08/07/18 [Advair HFA] gabapentin 600 mg PO DAILY 08/07/18 08/07/18 gabapentin 900 mg PO BID 08/07/18 08/07/18 ibuprofen 800 mg PO TID 08/07/18 08/07/18 liothyronine 100 mcg PO DAILY 08/07/18 08/07/18 metformin 500 mg PO BID 08/07/18 08/07/18 omeprazole 40 mg PO BID 08/07/18 08/07/18 Previous Rx's Medication Instructions Recorded cholestyramine (with sugar) 4 gram PO BID #378 gram 08/07/18 Allergies Allergy/AdvReac Type Severity Reaction Status Date / Time codeine [CODEINE] Allergy Unknown Unverified 05/22/17 12:44 fluconazole [From DIFLUCAN] Allergy Unknown Unverified 05/22/17 12:44 morphine [MORPHINE] Allergy Unknown Unverified 05/22/17 12:44 Penicillins [PENICILLINS] Allergy Unknown Unverified 05/22/17 12:44 All Opiates per patient Allergy Uncoded 08/07/18 15:41 Review of Systems Review of Systems Narrative: Increasing anxiety, currently is talking with a worker with community health services and waiting for an inpatient psychiatric bed (it is not clear that this is a dual diagnosis bed but it probably should be) Reports that she never sleeps she only ?passes out? Pertinent positive and negative findings as per HPI Remainder of review of systems is otherwise unremarkable for Constitutional: Fevers, chills, weakness ENT: No sore throat, neck pain, ear pain CV: Chest pain, palpitations, dyspnea on exertion Respiratory: Cough, wheeze, dyspnea : Dysuria, hematuria, flank pain MS: Muscle weakness, numbness, joint swelling or warmth Skin: Rashes, nonhealing lesions Neuro: Syncope, dizziness, tingling Patient History Medical History Asthma (Chronic) Diabetic neuropathy (Chronic) Fibromyalgia (Chronic) Methamphetamine abuse (Chronic) PTSD (post-traumatic stress disorder) (Acute) Uncontrolled diabetes mellitus (Chronic) Surgical History S/P section (Resolved) S/P jaren (Resolved) Social History Smoking Status: Current every day smoker Smoking Status: Current every day smoker alcohol intake frequency: holidays/special occasions only Substance Use Type: methamphetamine Exam Narrative Exam Narrative: General: Anxious and shuffled however Able to give a complete history. Well-nourished well-developed HEENT: Moist mucous membranes, normal sclera with reactive pupils, no signs of any parasitic infections or trauma to the sclera or cornea Respiratory: Lungs are clear to auscultation, no wheezing no rales no rhonchi. Full and symmetrical air movement Cardiac: Regular rate and rhythm no murmurs no bruits Abdomen: Soft nontender good bowel tones, no flank pain Skin: Warm and dry, no rashes, no findings of scabies over the hands to suggest an alternate explanation for her itching Neurologic: Grossly neurologically intact with no obvious asymmetries or abnormalities Extremities: No trauma, well perfused Psych: Anxious, slightly pressured, can recent through problem but certainly fixed delusions over the various parasitic infections she perceives are infesting her Initial Vital Signs Initial Vital Signs: Vital Signs Temperature 97.5 F L 09/16/19 18:05 Pulse Rate 114 H 09/16/19 18:05 Respiratory Rate 16 09/16/19 18:05 Blood Pressure 162/103 H 09/16/19 18:05 Pulse Oximetry 97 09/16/19 18:05 Course Vital Signs Vital signs: Vital Signs - 8 hr 09/16/19 18:05 Temperature 97.5 F L Pulse Rate 114 H Respiratory Rate 16 Blood Pressure 162/103 H Pulse Oximetry 97 Medical Decision Making Medical Records Medical records reviewed: Yes I reviewed the patient's medical records. MDM Narrative Medical decision making narrative: Long discussion regarding the delusional parasitosis, explaining lack of clinical evidence and reviewing her videos on her phone. Once we were able to focus more on her depression and PTSD as well as her forward movement in getting to adequate psychiatric care she was doing much better. She is waiting for an inpatient bed with [facility] and was not interested in social work assistance or more urgent psychiatric bed placement. She is safe for home discharge at this time she is not suicidal or homicidal. Discharge Plan Departure Patient Disposition: Home Clinical Impression: Acute post-traumatic stress disorder, Methamphetamine use Discharge Date/Time: 09/16/19 18:57 Instructions: DI for Depression -- Adult Activity Restrictions/Additional Instructions: Please keep following up with [facility] for an inpatient bed day. I wish you the best Prescriptions: No Action cyclobenzaprine 10 mg tablet 10 mg PO TID PRN (Reason: Pain, Severe) RF: 0 metformin 500 mg tablet 500 mg PO BID RF: 0 cetirizine 10 mg tablet 10 mg PO DAILY RF: 0 ibuprofen 800 mg tablet 800 mg PO TID RF: 0 benzonatate 100 mg capsule 100 mg PO TID PRN (Reason: Cough) RF: 0 liothyronine 50 mcg tablet 100 mcg PO DAILY RF: 0 gabapentin 300 mg capsule 900 mg PO BID RF: 0 gabapentin 300 mg capsule 600 mg PO DAILY RF: 0 albuterol sulfate 90 mcg/actuation HFA aerosol inhaler 2 puff inhalation Q4H PRN (Reason: Wheezing) RF: 0 3-Day Vaginal 2 % cream RF: 0 Advair HFA 45-21 mcg/actuation HFA aerosol inhaler 1 puff inhalation BID RF: 0 omeprazole 40 MG capsule,delayed release(DR/EC) 40 mg PO BID RF: 0 acetaminophen 325 MG tablet 325 - 650 mg PO Q6HP PRN (Reason: pain) RF: 0 cholestyramine (with sugar) 4 gram powder 4 gram PO BID Qty: 378 RF: 0
== END 2019-09-16 18:57 | disposition home or self-care (01) ==
PROVIDERS: Emergency Provider Emergency Medicine
DX: F15.10 Other stimulant abuse, uncomplicated (principal); F43.10 Post-traumatic stress disorder, unspecified
CPT/HCPCS: 99282

== ENCOUNTER 2019-10-05 20:06 | Observation (INO) | payer OTHER, MEDICAID, SELFPAY ==
[2019-10-05 20:18] VITALS: BP 123/83; PULSE 102; RESP 16; TEMP 36.4; O2SAT 100
--- NOTE | 2019-10-05 21:28 | PC.NURSE ---
Went to call pt in to a room-- registration stated she'd stepped out to smoke.
--- NOTE | 2019-10-05 23:05 | DI.RAD.S_ITS ---
PROCEDURE: XR FOOT RT MIN 3V INDICATIONS: ulcers to great and 5th toes TECHNIQUE: 3 views of the foot were acquired. COMPARISON: None. FINDINGS: Bones: No fractures or dislocations. No discrete bony erosions or periosteal reaction. No suspicious bony lesions. Soft tissues: No tibiotalar joint effusion. Achilles tendon appears normal. IMPRESSION: 1. No definite radiographic evidence of osteomyelitis. If clinical concern persists, further evaluation may be obtained with MRI. Dictated by: Bernabe Arshad M.D. on 10/06/2019 at 8:27 Approved by: Bernabe Arshad M.D. on 10/06/2019 at 8:28
--- NOTE | 2019-10-05 23:25 | DI.US.S_ITS ---
PROCEDURE: US PERIPH VENOUS LOW EXTREM RT INDICATIONS: Pain and swelling TECHNIQUE: Real-time imaging, as well as color and pulse Doppler interrogation, were performed of the lower extremity deep veins from the inguinal ligament to the popliteal fossa. COMPARISON: None. FINDINGS: The common femoral, femoral and popliteal veins are normally compressible, and free of intraluminal thrombus. Color and pulse Doppler demonstrate normal phasic intraluminal flow. There is normal augmentation response to distal compression maneuver. IMPRESSION: No right lower extremity DVT. This report is concordant with the overnight preliminary interpretation. Dictated by: Feliciano Blanton M.D. on 10/06/2019 at 8:53 Approved by: Feliciano Blanton M.D. on 10/06/2019 at 8:54
--- NOTE | 2019-10-05 23:29 | ED.SKABFB ---
HPI - Skin/Abscess/Foreign Bdy General Chief complaint: Skin/Abscess/Foreign Body Stated complaint: Right Foot All Jacked Up Time Seen by Provider: 10/05/19 23:18 Source: patient Mode of arrival: Wheelchair History of Present Illness HPI narrative: Patient thinks ongoing for the past 2 weeks, does not know how pain started with the right foot and skin injury. Has erosion of the skin to the bone on the big toe and little toe on the edges. There is erythema at the dorsum of the foot to the ankle. No crepitus. No ankle pain. History of diabetes. Related Data Home Medications Medication Instructions Recorded Confirmed acetaminophen 325 - 650 mg PO Q6HP PRN 08/07/18 08/07/18 albuterol sulfate 2 puff INHALATION Q4H PRN 08/07/18 08/07/18 benzonatate 100 mg PO TID PRN 08/07/18 08/07/18 cetirizine 10 mg PO DAILY 08/07/18 08/07/18 clotrimazole [3-Day Vaginal] 08/07/18 cyclobenzaprine 10 mg PO TID PRN 08/07/18 08/07/18 fluticasone propion-salmeterol 1 puff INHALATION BID 08/07/18 08/07/18 [Advair HFA] gabapentin 600 mg PO DAILY 08/07/18 08/07/18 gabapentin 900 mg PO BID 08/07/18 08/07/18 ibuprofen 800 mg PO TID 08/07/18 08/07/18 liothyronine 100 mcg PO DAILY 08/07/18 08/07/18 metformin 500 mg PO BID 08/07/18 08/07/18 omeprazole 40 mg PO BID 08/07/18 08/07/18 Previous Rx's Medication Instructions Recorded cholestyramine (with sugar) 4 gram PO BID #378 gram 08/07/18 Allergies Allergy/AdvReac Type Severity Reaction Status Date / Time codeine [CODEINE] Allergy Unknown Verified 10/05/19 20:33 fluconazole [From DIFLUCAN] Allergy Unknown Verified 10/05/19 20:33 morphine [MORPHINE] Allergy Unknown Verified 10/05/19 20:33 Penicillins [PENICILLINS] Allergy Unknown Verified 10/05/19 20:33 All Opiates per patient Allergy Uncoded 08/24/20 20:33 Review of Systems Review of Systems Narrative: GENERAL: Denies chills, fatigue, malaise, fever, sweats. HEENT: Denies sinus pain, ear pain, sore throat, difficulty swallowing, dizziness. RESPIRATORY: Denies dyspnea, cough, wheezing, hemoptysis, sputum. CARDIOVASCULAR: Denies chest pain, palpitations, orthopnea, edema, GASTROINTESTINAL: Denies nausea, vomiting, abdominal pain, diarrhea, constipation, melena. : Denies dysuria, frequency, incontinence, hematuria, urinary retention. MUSCULOSKELETAL: denies weakness, complains of joint pain, or bony pain SKIN: Denies rash, skin lesions, or other, has ulceration of the toes NEUROLOGIC: Denies weakness, headache, numbness, change in speech, confusion, seizures, incoordination. PSYCHIATRIC: No concerning psychosocial issues. ROS Unobtainable: All systems reviewed & are unremarkable except as noted in HPI and below Patient History Medical History Asthma (Chronic) Diabetic neuropathy (Chronic) Fibromyalgia (Chronic) Methamphetamine abuse (Chronic) PTSD (post-traumatic stress disorder) (Acute) Uncontrolled diabetes mellitus (Chronic) Surgical History S/P section (Resolved) S/P jaren (Resolved) Social History Smoking Status: Current every day smoker Smoking Status: Current every day smoker tobacco type: cigarettes alcohol intake frequency: 0-2 drinks per day Substance Use Type: amphetamines and methamphetamine Exam Narrative Exam Narrative: Examination right foot. Ankle nontender. There is diffuse tenderness of the dorsum of foot with erythema at the dorsum of the foot. There is ulceration of the skin at the edges of the small toe and big toe. Each are about dime size. Bone exposure noted. No oozing or bleeding. Very tender to touch. Initial Vital Signs Initial Vital Signs: Vital Signs Temperature 97.5 F L 10/05/19 20:18 Pulse Rate 102 H 10/05/19 20:18 Respiratory Rate 16 10/05/19 20:18 Blood Pressure 123/83 10/05/19 20:18 Pulse Oximetry 100 10/05/19 20:18 Course Orders Ordered: ED Orders 10/05/19 23:05 XR foot RT min 3V Stat 10/05/19 23:25 US periph venous low extrem rt Stat 10/05/19 23:30 Urine Drug Screen, Rapid Stat Discontinued Medications Diphtheria/Tetanus/Acell Pertussis (Adacel) 0.5 ml IM .ONCE ONE Stop: 10/05/19 23:34 Last Admin: 10/05/19 23:43 Dose: 0.5 ml Documented by: IAVN Clindamycin Phosphate (Cleocin) 600 mg in 50 mls @ 50 mls/hr IV NOW ONE Stop: 10/06/19 00:28 Last Infusion: 10/06/19 02:19 Dose: 0 mls/hr Documented by: Admin: 10/06/19 00:57 Dose: 50 mls/hr Documented by: IVAN Vancomycin HCl (Vancomycin) 1,000 mg in 200 mls @ 200 mls/hr IV NOW ONE Stop: 10/06/19 04:15 Last Admin: 10/06/19 03:31 Dose: 200 mls/hr Documented by: IVAN Reevaluation(s) Reevaluation #1: No new issues Time: 03:11 Consultations Consultation #1: Spoke with Orthopedics, dr lopez, patient to be admitted to hospitalist. Their service will follow along Time: 03:11 Consultation #2: Spoke with hospitalist, heavenly, will admit Time: 03:19 Vital Signs Vital signs: Vital Signs - 8 hr 10/05/19 20:18 Temperature 97.5 F L Pulse Rate 102 H Respiratory Rate 16 Blood Pressure 123/83 Pulse Oximetry 100 MDM - Skin/Abscess/Foreign Bdy Differential Diagnosis Differential diagnosis: Likely cellulitis Lab Data Attestation: I reviewed the patient's lab results. Result diagrams: 10/05/19 01:14 10/05/19 01:14 Labs: Lab Results 10/05/19 10/05/19 10/06/19 Range/Units 01:14 01:14 02:50 WBC 9.0 (4.5-11.0) X10^3/uL RBC 4.90 (4.0-5.2) X10^6/uL Hgb 15.0 (12.0-16.0) g/dL Hct 45.7 (36-46) % MCV 93.2 (80-100) fL MCH 30.7 (26-34) PG MCHC 32.9 (30-36) % RDW 12.9 (11.6-14.8) % Plt Count 290 (150-400) X10^3/uL Neut % (Auto) 56.0 (50-75) % Lymph % (Auto) 36.0 (25-40) % [place] % (Auto) 4.7 (3-14) % Eos % (Auto) 1.9 L (2-4) % Baso % (Auto) 1.4 (0-2) % Neut # (Auto) 5000 (5051-4153) /uL Lymph # (Auto) 3200 (7858-0002) /uL [place] # (Auto) 400 (0-900) /uL Eos # (Auto) 200 (0-450) /uL Baso # (Auto) 100 (0-100) /uL Sodium 136 L (137-145) mmol/L Potassium 4.2 (3.4-5.1) mmol/L Chloride 100 (98-107) mmol/L Carbon Dioxide 32 (22-32) mmol/L BUN 14 (7-17) mg/dL Creatinine 0.65 (0.52-1.04) mg/dL Estimated GFR > 60.0 (>60) mL/min BUN/Creatinine Ratio 21.5 (6-22) Glucose 294 H (70-100) mg/dL Calcium 9.2 (8.4-10.2) mg/dL Total Bilirubin 0.5 (0.2-1.3) mg/dL AST 17 (14-36) IU/L ALT 12 (<35) IU/L Alkaline Phosphatase 110 (38-126) U/L Total Protein 7.3 (6.3-8.2) g/dL Albumin 3.9 (3.5-5.0) g/dL Globulin 3.4 (1.7-4.1) g/dL Albumin/Globulin Ratio 1.1 (1.0-2.8) COVID-19 PCR Negative (Negative) Imaging Data X-ray right foot: Attestation: I personally reviewed and interpreted this imaging study as follows: My Impression: No acute process US - DVT: Radiologist's Impression: No DVT MDM Narrative Medical decision making narrative: Appropriate for admission. History of diabetes. Bone exposure on exam of the toes. Needs podiatry consult. Needs antibiotics Discharge Plan Departure Patient Disposition: Admitted As Inpatient Clinical Impression: Cellulitis of foot, right Discharge Date/Time: 10/06/19 04:11 Admit Date/Time: 10/06/19 03:18 Admit Provider: Marilai Reyes
[2019-10-05] MEDS: TET,DIPH,PERTUSS(ACELL),VAC/PF 0.5 ML SYRINGE IM (23:43)
[2019-10-06] VITALS (7 sets, daily range): BP systolic 123–136; BP diastolic 75–92; PULSE 84–90; RESP 16–24; TEMP 36.2–36.8; O2SAT 96–100; BMI 34.2
[2019-10-06] MEDS: CLINDAMYCIN 600 MG/50 ML PIGGYBACK 50 MG IV (00:57)
[2019-10-06 01:43] LABS: Add Manual Diff / Slide Review NO; Basophils Absolute Auto 100 /uL (0-100); Basophils Percent Auto 1.4 % (0-2); Eosinophils Absolute Auto 200 /uL (0-450); Eosinophils Percent Auto 1.9 % (2-4); Hematocrit 45.7 % (36-46); Lymphocytes Absolute Auto 3200 /uL (1100-4500); Mean Corpuscular HGB Conc 32.9 % (30-36); Mean Corpuscular Hemoglobin 30.7 PG (26-34); Mean Corpuscular Volume 93.2 fL (80-100); Monocytes Absolute Auto 400 /uL (0-900); Monocytes Percent Auto 4.7 % (3-14); Neutrophils Absolute Auto 5000 /uL (1500-7000); Platelet Count 290 X10^3/uL (150-400); Red Cell Distribution Width 12.9 % (11.6-14.8)
[2019-10-06 01:51] LABS: Alanine Aminotransferase 12 IU/L (<35); Albumin 3.9 g/dL (3.5-5.0); Albumin Globulin Ratio 1.1 (1.0-2.8); Alkaline Phosphatase 110 U/L (38-126); Aspartate Aminotransferase 17 IU/L (14-36); BUN Creatinine Ratio 21.5 (6-22); Bilirubin Total 0.5 mg/dL (0.2-1.3); Blood Urea Nitrogen 14 mg/dL (7-17); Calcium 9.2 mg/dL (8.4-10.2); Carbon Dioxide 32 mmol/L (22-32); Chloride 100 mmol/L (98-107); Estimated Glomerular Filt Rate > 60.0 mL/min (>60); Globulin 3.4 g/dL (1.7-4.1); Glucose 294 mg/dL (70-100); HEMOLYSIS 18 (0-50); Potassium 4.2 mmol/L (3.4-5.1); Sodium 136 mmol/L (137-145); Total Protein 7.3 g/dL (6.3-8.2)
[2019-10-06] MEDS: VANCOMYCIN 1,000 MG/200 ML PIGGYBACK 200 MG IV (03:31)
[2019-10-06 03:47] LABS: COVID19 -Nasal RAPID Negative (Negative)
[2019-10-06 05:16] LABS: Hemoglobin A1C% w Est Avg Glu 10.1 % (4.0-6.0)
--- NOTE | 2019-10-06 05:26 | PC.NURSE ---
Admitted to room 223 from ER. Pt. very emotional, crying & C/O being tired. States I'm not talking anymore to you & let me sleep. Limited admit assessment done & was not able to reconcile her home medications. Will report to day RN. to follow with her home medications reconciliation.
[2019-10-06] MEDS: LORazepam 1 MG TABLET 2 MG PO (05:35)
[2019-10-06] MEDS: CEFTRIAXONE 1 GM/50 ML FROZ.PIGGY IV (05:37)
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
[2019-10-06] MEDS: VANCOMYCIN 500 MG in SODIUM CHLORIDE 0.9% 100 ML IV (06:37)
[2019-10-06 06:41] LABS: Ur Creatinine 50 (Normal); Ur Specific Gravity 1.025 (Normal); Urine pH 6 (Normal)
[2019-10-06 06:42] LABS: UR Morphine/Opiate cutoff 300 Negative (Negative); Urine Amphetamines Positive (Negative); Urine Barbiturates Negative (Negative); Urine Benzodiazepines Negative (Negative); Urine Cocaine Negative (Negative); Urine MDMA Negative (Negative); Urine Methadone Negative (Negative); Urine Methamphetamines Positive (Negative); Urine Oxycodone Negative (Negative); Urine Phencyclidine Negative (Negative); Urine Tetrahydrocannabinol Negative (Negative); Urine Tricyclic Antidepressant Negative (Negative)
[2019-10-06] MEDS: INSULIN GLARGINE 100 UNIT/ML 3ML PEN 10 UNIT SUBCUT (09:07)
[2019-10-06 09:36] LABS: Add Manual Diff / Slide Review NO; Basophils Absolute Auto 100 /uL (0-100); Eosinophils Absolute Auto 200 /uL (0-450); Eosinophils Percent Auto 2.2 % (2-4); Hemoglobin 13.8 g/dL (12.0-16.0); Lymphocytes Absolute Auto 2400 /uL (1100-4500); Lymphocytes Percent Auto 32.7 % (25-40); Mean Corpuscular HGB Conc 34.5 % (30-36); Mean Corpuscular Hemoglobin 31.5 PG (26-34); Mean Corpuscular Volume 91.3 fL (80-100); Monocytes Absolute Auto 400 /uL (0-900); Monocytes Percent Auto 5.1 % (3-14); Neutrophils Absolute Auto 4400 /uL (1500-7000); Platelet Count 234 X10^3/uL (150-400); Red Blood Cell Count 4.38 X10^6/uL (4.0-5.2); Red Cell Distribution Width 12.7 % (11.6-14.8); White Blood Cell Count 7.4 X10^3/uL (4.5-11.0)
--- NOTE | 2019-10-06 09:43 | PC.NURSE ---
Addendum entered by Demetris Akers R.N. 10/06/19 12:00: PATIENT CONTINUES TO BE SLEEPING BUT AROUSABLE NOTED BELOW THROUGHOUT SHIFT. TOOK PHOTO OF TOES. RIGHT 1ST AND 5TH TOES WITH SUPERFICIAL ULCERATIONS WITH DRY YELLOW WOUND BASE AND SURROUNDING CALLOUS, BUT NOT ERYTHEMA. DR. GROVER AT BEDSIDE FOR SKIN ASSESSMENT. LEFT FIFTH TOE HAS SMALL CALLOUS BUT IS NON-OPEN. Original Note: PATIENT AROUSES ENOUGH TO OPEN EYES BRIEFLY AND STRETCH UPON TOUCHING PATIENT'S LOWER LEG TO AWAKEN HER PRIOR TO INJECTING INSULIN. PATIENT TO SLEEPY TO EAT BREAKFAST AT THIS TIME. VSS. SAT 97% ON RA. WILL ALLOW PATIENT TO REST AND CONTINUE TO MONITOR. CLARIFIED VANCO DOSING/FREQ WITH PHARMACY. SECOND PART (500MG) IV VANCO COMPLETED AT 0730. PER PHARMACY OKAY FOR NEXT DOSE SCHEDULED AT 1100. 1ST DOSE IS CONSIDERED LOADING DOSE.
[2019-10-06 09:49] LABS: Erythrocyte Sedimentation Rate 12 MM/HR (0-20)
[2019-10-06 09:51] LABS: Alanine Aminotransferase 10 IU/L (<35); Albumin 3.2 g/dL (3.5-5.0); Albumin Globulin Ratio 1.1 (1.0-2.8); Alkaline Phosphatase 94 U/L (38-126); Aspartate Aminotransferase 14 IU/L (14-36); Bilirubin Total 0.4 mg/dL (0.2-1.3); Bilirubin Unconjugated 0.3 mg/dL (0.0-1.1); Blood Urea Nitrogen 12 mg/dL (7-17); Calcium 8.6 mg/dL (8.4-10.2); Carbon Dioxide 32 mmol/L (22-32); Chloride 102 mmol/L (98-107); Estimated Glomerular Filt Rate > 60.0 mL/min (>60); Globulin 2.8 g/dL (1.7-4.1); Glucose 256 mg/dL (70-100); HEMOLYSIS < 15 (0-50); Magnesium 1.7 mg/dL (1.6-2.3); Sodium 135 mmol/L (137-145)
[2019-10-06] MEDS: INSULIN ASPART 100 UNIT/ML INSULN PEN SUBCUT ×2 (11:18→17:04)
[2019-10-06] MEDS: SODIUM CHLORIDE 0.9% 500 ML 21 ML IV (11:28)
[2019-10-06] MEDS: VANCOMYCIN 1,000 MG/200 ML PIGGYBACK 100 MG IV ×2 (11:28→18:29)
[2019-10-06 11:35] LABS: C-Reactive Protein Quant 0.7 mg/dL (<1.0)
--- NOTE | 2019-10-06 16:29 | CM.SWNOTE ---
PACKING CHECKER note ED PACKING CHECKER assists DCP PACKING CHECKER with discharge planning for patient. PACKING CHECKER enters room and introduces self and role. Patient difficult to rouse, and RN turns on lights to assist with rousing patient. Once awake PACKING CHECKER and patient discuss patient's substance use and plans after discharge. Patient reports that she currently lives in her vehicle and is couch surfing in [place]. Patient states she is independant with ADLs and denies SI/HI. Patient reports injecting meth daily, and denies any other substance use. Patient reports she wants to go to treatment for mental health with a side order of substance and reports that she previously attempted inpatient treatment at [facility], but explains that she feels that they were not setup for trauma. PACKING CHECKER and patient discuss PCN, and patient informs PACKING CHECKER that she is currently working with [facility] and Andrea Tang from [facility] to access [facility] services. Patient mentions [facility], and PACKING CHECKER and patient discuss completing an assessment with [facility]. PACKING CHECKER provides patient with brochure to follow up with [facility]. Patient states that PCP is Dr. Cowan at [facility], but states she has not seen her for a long time. Patient indicates understanding that she will likely be d/c'ed soon and begins to sleep at end of assessment. PACKING CHECKER exits room and updates DCP SYLVIA Pak. SYLVIA Mcqueen
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
--- NOTE | 2019-10-06 22:14 | PC.NURSE ---
Discharge Note- Patient discharged per hospitalist. Discharge instructions and education reviewed with patient and signed. IV line removed. Patient wanted to shower before she left. Patient allowed to shower, dress, and pack up all personal belongings. Patient taken to private car via wheelchair by PUSH CONNECTOR ASSEMBLER with all personal items at 2200.
== END 2019-10-06 22:00 | disposition home or self-care (01) ==
LOC: ED 10-06 03:12 → AC 10-06 06:00
PROVIDERS: Internal Medicine; Admitting Provider Nurse Practitioner Family; Emergency Provider Emergency Medicine; Referring Provider Emergency Medicine; Visit Provider Nurse Practitioner Family
DX: L03.032 Cellulitis of left toe (principal); L03.031 Cellulitis of right toe; Z79.84 Long term (current) use of oral hypoglycemic drugs; F17.210 Nicotine dependence, cigarettes, uncomplicated; J45.909 Unspecified asthma, uncomplicated; E11.40 Type 2 diabetes mellitus with diabetic neuropathy, unspecified; F15.93 Other stimulant use, unspecified with withdrawal; Z59.0 Homelessness; F43.10 Post-traumatic stress disorder, unspecified; M79.7 Fibromyalgia; Z11.59 Encounter for screening for other viral diseases
CPT/HCPCS: 36415; 73630; 80048; 80053; 80076; 80305; 82962; 83036; 83735; 85025; 85651; 86140; 87040; 87635; 93971; 99284; G0378; 90715; J3370

== ENCOUNTER 2022-09-06 16:26 | Emergency (ER) | payer OTHER, MEDICAID, SELFPAY ==
[2019-10-06 04:17] VITALS: BMI 34.2
[2022-09-06 16:30] VITALS: BP 139/78; PULSE 77; RESP 18; TEMP 36.7; O2SAT 96; BMI 47.9
[2022-09-06 17:30] VITALS: BP 135/68; PULSE 80; RESP 18; O2SAT 99
[2022-09-06 18:28] LABS: Bacteria Urine Occasional (0-1); Culture Indicated Urine Specimen Cultured; RBC Urine None Seen (0-5/HPF); Squamous Epithelial Cell Urine 5-10 /HPF (0-5/HPF); WBC Urine 5-10/HPF (0-5/HPF)
[2022-09-06 18:30] VITALS: BP 137/79; PULSE 78; RESP 20; O2SAT 99
--- NOTE | 2022-09-06 19:19 | CM.SWNOTE ---
CROP DUSTER HELPER Note CROP DUSTER HELPER receives consult from medical collector. Patient is 56 y/o female with hx of PTSD and Methamphetamine use. CROP DUSTER HELPER is informed of ED CROP DUSTER HELPER consult upon patient requesting to leave ED. CROP DUSTER HELPER enters room to meet with patient. Patient endorses she arrived to ED via paratransit and is need of ride to new place she will be staying. CROP DUSTER HELPER informs patient that [facility] taxi does not leave [place] and that [facility] Medicaid taxi does not come to [place] due to Yellow Cab limitations in [place]. Patient receives call from friend Tal who she is going to reside with and help clean his home. Tal offers to pick patient up at [facility]. CROP DUSTER HELPER provides patient with taxi voucher to transport patient to [facility]. Patient's friend to picking belt operator patient and transport her to her new residence. Patient chooses to leave ED before being seen by provider, CROP DUSTER HELPER offers patient to stay longer and wait to be seen. Karly Ramos, DIGITAL ADVERTISING SPECIALIST
== END 2022-09-06 19:21 | disposition left against medical advice (07) ==
PROVIDERS: Emergency Medicine; Emergency Provider Emergency Medicine
DX: R30.0 Dysuria (principal)
CPT/HCPCS: 81003; 81015; 87086; 99282

== ENCOUNTER 2022-11-18 11:57 | Inpatient (IN) | payer OTHER, MEDICAID, SELFPAY ==
[2019-10-06 04:17] VITALS: BMI 34.2
[2022-11-18] VITALS (37 sets, daily range): BP systolic 98–138; BP diastolic 45–82; PULSE 72–84; RESP 14–33; TEMP 36.2–37.7; O2SAT 92–99; BMI 46.0
--- NOTE | 2022-11-18 12:31 | ED_ITS ---
HPI - Skin/Abscess/Foreign Bdy General Chief complaint: Skin/Abscess/Foreign Body Stated complaint: Spider bite, Swelling L leg/groin Time Seen by Provider: 11/18/22 12:31 Source: patient Mode of arrival: Wheelchair History of Present Illness HPI narrative: 56-year-old woman with a history of methamphetamine and opioid use disorder currently living in [facility] and has been sober for over 15 months additional problems include type 2 diabetes, PTSD, asthma, morbid obesity, diabetic neuropathy who presents complaining that she was ?bit by a brown recluse spider ?. She describes feeling the spider crawling in her groin biting her in multiple spots in the groin, describes the incident on November 12. She was seen at urgent care on November 15 prescribed Keflex which was able to be picked up the evening of November 16 and she has since taken 3 doses bits noting the area is increasing in size. She complains of a low-grade fever, general malaise and increasing pain. There has been no drainage from the area. She has not been having chest pain, orthopnea dyspnea, nausea, vomiting or diarrhea. Related Data Home Medications Medication Instructions Recorded Confirmed acetaminophen 325 mg tablet 325 - 650 mg PO Q6HP PRN pain 08/07/18 08/07/18 albuterol sulfate 90 mcg/actuation 2 puff inhalation Q4H PRN Wheezing 08/07/18 08/07/18 aerosol inhaler benzonatate 100 mg capsule 100 mg PO TID PRN Cough 08/07/18 08/07/18 cetirizine 10 mg tablet 10 mg PO DAILY 08/07/18 08/07/18 clotrimazole 2 % vaginal cream 08/07/18 cyclobenzaprine 10 mg tablet 10 mg PO TID PRN Pain, Severe 08/07/18 08/07/18 fluticasone propionate 45 1 puff inhalation BID 08/07/18 08/07/18 mcg-salmeterol 21 mcg/actuation HFA inhaler gabapentin 300 mg capsule 600 mg PO DAILY 08/07/18 08/07/18 gabapentin 300 mg capsule 900 mg PO BID 08/07/18 08/07/18 ibuprofen 800 mg tablet 800 mg PO TID 08/07/18 08/07/18 liothyronine 50 mcg tablet 100 mcg PO DAILY 08/07/18 08/07/18 metformin 500 mg tablet 500 mg PO BID 08/07/18 08/07/18 omeprazole 40 mg capsule,delayed 40 mg PO BID 08/07/18 08/07/18 release Previous Rx's Medication Instructions Recorded cholestyramine (with sugar) 4 gram 4 gram PO BID diarrhea #378 grams 08/07/18 oral powder Allergies Allergy/AdvReac Type Severity Reaction Status Date / Time codeine [CODEINE] Allergy Unknown Verified 10/05/19 20:33 fluconazole [From DIFLUCAN] Allergy Unknown Verified 10/05/19 20:33 morphine [MORPHINE] Allergy Unknown Verified 10/05/19 20:33 Penicillins [PENICILLINS] Allergy Unknown Verified 10/05/19 20:33 All Opiates per patient Allergy Uncoded 10/05/19 20:33 Review of Systems Review of Systems Narrative: Pertinent positive and negative findings as per HPI Patient History Medical History Tobacco dependence PTSD (post-traumatic stress disorder) Asthma Fibromyalgia Diabetic neuropathy Uncontrolled diabetes mellitus Methamphetamine abuse Surgical History S/P section S/P jaren Social History Smoking Status: Current every day smoker Smoking Status: Current every day smoker tobacco type: cigarettes alcohol intake frequency: 0-2 drinks per day Substance Use Type: does not use Exam Initial Vital Signs Initial Vital Signs: Vital Signs Temperature 100 F H 11/18/22 12:04 Pulse Rate 84 11/18/22 12:04 Respiratory Rate 16 11/18/22 12:04 Blood Pressure 133/66 11/18/22 12:04 Pulse Oximetry 95 11/18/22 12:04 Oxygen Delivery Method Room Air 11/18/22 12:04 General: Chronically ill-appearing but in no acute distress. Able to give a complete and coherent history. Well-nourished well-developed HEENT: Moist mucous membranes, normal sclera with reactive pupils, Respiratory: Lungs are clear to auscultation, no wheezing no rales no rhonchi. Full and symmetrical air movement Cardiac: Regular rate and rhythm no murmurs no bruits Abdomen: Soft, nontender, good bowel tones, no flank pain Groin: Left groin extending into the upper thigh has a large abscess with extending cellulitis. It is unclear how far it extends internally and whether it actually extends into the pelvis. Bedside ultrasound shows a large fluid collection hitting up toward the inguinal ligament but body habitus precludes more complete exam Skin: Warm and dry, Neurologic: Grossly neurologically intact with no obvious asymmetries or abnormalities Extremities: No trauma, well perfused Psych: Cooperative, appropriate insight and affect Course Orders Ordered: ED Orders 11/18/22 12:23 Ictotest Urine Stat Urinalysis and Microscopic Stat 11/18/22 12:32 RT Consult Eval and Treat NOW 11/18/22 13:10 Complete Blood Count AUTO DIFF Stat Comprehensive Metabolic Panel Stat Lactate (Lactic Acid) Stat Lipase Stat PTT Partial Thromboplastin Alexandr Stat Procalcitonin Stat Prothrombin Time INR Stat 11/18/22 13:20 Blood Culture Stat 11/18/22 13:24 CT abdomen pelvis w con Stat 11/18/22 14:07 COVID19 -Nasal RAPID Stat 11/19/22 BMP [Basic Metabolic Panel] Routine 11/20/22 01:30 Vancomycin Trough Urgent Vancomycin HCl/Dextrose (Vancomycin) 1,500 mg in 300 mls @ 200 mls/hr IV Q12H ALEXANDER Last Infusion: 11/18/22 16:30 Dose: Infused Documented By: Admin: 11/18/22 14:55 Dose: 200 mls/hr Documented By: ESTEBAN Ketorolac Tromethamine (Ketorolac 30 Mg/Ml Vial) 30 mg IV Q6H PRN PRN Reason: Pain, Moderate (4-6) Ondansetron HCl (Ondansetron 4 Mg/2 Ml Inj) 4 mg IV NOW PRN PRN Reason: Nausea And Vomiting Ondansetron HCl (Ondansetron 4 Mg Odt) 4 mg SL NOW PRN PRN Reason: Nausea And Vomiting Vancomycin HCl (Vancomycin Trough) 1 request MISC NOW ONE Stop: 11/20/22 01:31 Discontinued Medications Sodium Chloride (Normal Saline 0.9%) 1,000 mls @ 1,000 mls/hr IV BOLUS ONE Stop: 11/18/22 13:31 Last Infusion: 11/18/22 14:48 Dose: Infused Documented By: Admin: 11/18/22 13:20 Dose: 1,000 mls/hr Documented By: ERINN Ceftriaxone Sodium 2,000 mg/ (Sodium Chloride) 100 mls @ 200 mls/hr IV NOW ONE Stop: 11/18/22 13:33 Last Infusion: 11/18/22 14:48 Dose: Infused Documented By: Admin: 11/18/22 14:10 Dose: 200 mls/hr Documented By: THAIS Ketorolac Tromethamine (Ketorolac 30 Mg/Ml Vial) 15 mg IV NOW ONE Stop: 11/18/22 13:33 Last Admin: 11/18/22 14:10 Dose: 15 mg Documented By: THAIS Vancomycin HCl (Vancomycin Per Pharmacy) 1 request MISC NOW ONE Stop: 11/18/22 13:34 Last Admin: 11/18/22 14:11 Dose: Not Given Documented By: THAIS Vital Signs Vital signs: Vital Signs - 8 hr 11/18/22 12:04 11/18/22 12:42 11/18/22 12:43 Temperature 100 F H Pulse Rate 84 78 Respiratory Rate 16 17 Blood Pressure 133/66 118/71 Pulse Oximetry 95 Oxygen Delivery Method Room Air Oxygen Flow Rate 11/18/22 12:43 11/18/22 12:45 11/18/22 12:45 Temperature Pulse Rate 78 81 Respiratory Rate 19 21 Blood Pressure 128/71 Pulse Oximetry 93 Oxygen Delivery Method Nasal Cannula Oxygen Flow Rate 2 11/18/22 13:00 11/18/22 13:00 11/18/22 13:15 Temperature Pulse Rate 77 Respiratory Rate 19 Blood Pressure 129/74 138/82 Pulse Oximetry 94 Oxygen Delivery Method Nasal Cannula Oxygen Flow Rate 2 11/18/22 13:15 11/18/22 13:30 11/18/22 13:31 Temperature Pulse Rate 78 76 Respiratory Rate 17 20 Blood Pressure 133/59 L Pulse Oximetry 97 97 Oxygen Delivery Method Nasal Cannula Oxygen Flow Rate 2 11/18/22 13:31 11/18/22 14:00 11/18/22 14:02 Temperature Pulse Rate 76 74 75 Respiratory Rate 19 19 19 Blood Pressure Pulse Oximetry 97 96 97 Oxygen Delivery Method Nasal Cannula Oxygen Flow Rate 2 11/18/22 14:02 11/18/22 14:15 11/18/22 14:15 Temperature Pulse Rate 74 Respiratory Rate 15 Blood Pressure 119/56 L 129/65 Pulse Oximetry 98 Oxygen Delivery Method Nasal Cannula Oxygen Flow Rate 2 11/18/22 14:30 11/18/22 14:35 11/18/22 14:35 Temperature Pulse Rate 75 74 Respiratory Rate 18 18 Blood Pressure 126/63 Pulse Oximetry 96 97 Oxygen Delivery Method Oxygen Flow Rate 11/18/22 14:45 11/18/22 15:00 11/18/22 15:15 Temperature Pulse Rate 75 74 75 Respiratory Rate 22 17 16 Blood Pressure 117/66 Pulse Oximetry 99 99 99 Oxygen Delivery Method Oxygen Flow Rate 11/18/22 15:30 11/18/22 15:45 11/18/22 16:00 Temperature Pulse Rate 78 75 77 Respiratory Rate 18 22 23 Blood Pressure 118/78 Pulse Oximetry 99 99 97 Oxygen Delivery Method Oxygen Flow Rate 11/18/22 16:07 11/18/22 16:07 11/18/22 16:15 Temperature Pulse Rate 74 74 Respiratory Rate 15 23 Blood Pressure 119/82 Pulse Oximetry 96 97 Oxygen Delivery Method Oxygen Flow Rate 11/18/22 16:22 11/18/22 16:22 11/18/22 16:24 Temperature Pulse Rate 74 Respiratory Rate 18 Blood Pressure 109/66 109/58 L Pulse Oximetry 97 Oxygen Delivery Method Oxygen Flow Rate 11/18/22 16:24 11/18/22 16:30 11/18/22 16:30 Temperature Pulse Rate 74 72 Respiratory Rate 15 16 Blood Pressure 108/56 L Pulse Oximetry 95 94 Oxygen Delivery Method Oxygen Flow Rate 11/18/22 16:45 11/18/22 17:00 11/18/22 17:00 Temperature Pulse Rate 74 77 Respiratory Rate 14 14 Blood Pressure 116/59 L Pulse Oximetry 95 98 Oxygen Delivery Method Oxygen Flow Rate 11/18/22 17:15 Temperature Pulse Rate 74 Respiratory Rate 14 Blood Pressure Pulse Oximetry 97 Oxygen Delivery Method Oxygen Flow Rate MDM - Skin/Abscess/Foreign Bdy Lab Data 11/18/22 13:10 11/18/22 13:10 Labs: Lab Results 11/18/22 11/18/22 11/18/22 Range/Units 12:23 13:10 14:07 WBC 11.9 H (4.5-11.0) X10^3/uL RBC 4.48 (4.0-5.2) X10^6/uL Hgb 14.3 (12.0-16.0) g/dL Hct 41.9 (36-46) % MCV 93.5 (80-100) fL MCH 31.9 (26-34) PG MCHC 34.1 (30-36) % RDW 14.7 (11.6-14.8) % Plt Count 206 (150-400) X10^3/uL Neut % (Auto) 84.5 H (50-75) % Lymph % (Auto) 6.5 L (25-40) % [place] % (Auto) 7.7 (3-14) % Eos % (Auto) 0.7 L (2-4) % Baso % (Auto) 0.6 (0-2) % Neut # (Auto) 51880 H (9010-9519) /uL Lymph # (Auto) 800 L (5221-8412) /uL [place] # (Auto) 900 (0-900) /uL Eos # (Auto) 100 (0-450) /uL Baso # (Auto) 100 (0-100) /uL PT 13.7 H (10.1-12.7) SECONDS INR 1.2 (0.9-1.3) APTT 29 (26-36) SECONDS Sodium 130 L (137-145) mmol/L Potassium 4.4 (3.4-5.1) mmol/L Chloride 94 L (98-107) mmol/L Carbon Dioxide 30 (22-32) mmol/L BUN 18 H (7-17) mg/dL Creatinine 0.58 (0.52-1.04) mg/dL Estimated GFR > 60 (>60) mL/min BUN/Creatinine Ratio 31.0 H (6-22) Glucose 388 H (70-100) mg/dL Lactate 1.1 (0.7-2.1) mmol/L Calcium 9.2 (8.4-10.2) mg/dL Total Bilirubin 1.8 H (0.2-1.3) mg/dL AST 27 (14-36) IU/L ALT 38 H (<35) IU/L Alkaline Phosphatase 297 H (38-126) U/L Total Protein 6.9 (6.3-8.2) g/dL Albumin 3.5 (3.5-5.0) g/dL Globulin 3.4 (1.7-4.1) g/dL Albumin/Globulin Ratio 1.0 (1.0-2.8) Lipase 12 L (23-300) U/L Procalcitonin 0.16 (<0.5) ng/mL Urine Color Yellow Urine Appearance Clear Urine pH 5.5 (4.5-8.0) Ur Specific [place] 1.020 (1.000-1.035) Urine Protein 1+ H (Negative) Urine Glucose (UA) 3+ H (Negative) g/dL Urine Ketones 1+ H (NEGATIVE) Urine Occult Blood Negative (Negative) Urine Nitrate Negative (Negative) Urine Bilirubin 1+ H (NEGATIVE) Ur Bilirubin Confirm Positive H (Negative) Urine Urobilinogen 4.0 H (0.2) E.U./dL Ur Leukocyte Esterase Negative (NEGATIVE) Urine RBC 5-10/hpf H (0-5/HPF) Urine WBC 0-1/hpf (0-5/HPF) Ur Squamous Epith Cells 1-5 /hpf (0-5/HPF) Urine Bacteria Few (2-10) H (None) Ur Culture Indicated? Cult not indicated SARS-CoV-2 (PCR) Negative (Negative) MDM Narrative Medical decision making narrative: CC: Abscess left groin Complicating co-morbidities: Morbid obesity, diabetes, asthma Data collected from: patient, Social determinants of health that may influence the patients condition: Currently living in clean and sober housing, clean and sober for over 15 months Medical records reviewed: Discharge summary from December 06, 2019 is reviewed Differential considered: Simple cellulitis, simple abscess, complex abscess, sepsis Exam documented above, pertinent findings include: Large area of cellulitis with abscess in the upper groin will need CT scan to further delineate upper limits of the developing abscess Lab Test results independently reviewed as above. Pertinent findings: CBC shows mild leukocytosis at 11.9 with significantly shift at 84.5 CMP shows mild increase in belly bilirubin at 1.8, slight increase in ALT and alk-phos. Lipase is unremarkable Procalcitonin is not elevated Independently reviewed EKG as above Imaging studies independently reviewed: Discussed CT scan with radiologist in real-time. He notes extensive inflammatory changes through the left medial thigh with associated soft tissue gas but no obvious abscess, perhaps phlegmon collection. This does not seem to extend up into the pelvis of the abdomen Consultations: Discussion with Dr. Obrien, general surgeon. Patient is evaluated by him in the emergency department. She will be NPO after midnight. Care is coordinated between General surgery and admitting service, with Dr. Leos, hospitalist. Patient will be admitted to the hospitalist service Treatments: IV fluids, ceftriaxone, vancomycin Re-evaluations: Patient remains afebrile is stable at this time Discussion: 56-year-old woman with a left upper thigh abscess/cellulitis with air subcutaneously. Evaluated by surgery in the emergency department. Admission to the medicine service with IV antibiotics and repeat surgical consultations to see if she may be appropriate for I and D tomorrow. Certainly is not requiring this this evening. I do not think this is necrotizing fasciitis. I also do not think that this is secondary to a brown recluse spider bite. At this time there is no drainage to send for culture. Patient is not showing signs of sepsis and is safe for transfer to floor Discharge Plan Departure Patient Disposition: Admitted As Inpatient Clinical Impression: Cellulitis and abscess of left leg Admit Date/Time: 11/18/22 17:20 Admit Provider: Gilles Leos
[2022-11-18] MEDS: SODIUM CHLORIDE 0.9% 1,000 ML 1000 ML IV (13:20)
--- NOTE | 2022-11-18 13:24 | DI.CT.S_ITS ---
PROCEDURE: CT ABDOMEN PELVIS W CON INDICATIONS: abscess, left groin and upper thigh TECHNIQUE: After the administration of oral and IV contrast, axial sections were acquired from the lung bases to the pubic symphysis. Coronal and sagittal reformats were performed. For radiation dose reduction, the following was used: automated exposure control, adjustment of mA and/or kV according to patient size. COMPARISON: [facility], MR, LUMBAR SPINE W/O CONTRAST, 08/08/2011, 14:30. FINDINGS: Image quality: Excellent. Lung bases: Unremarkable. Heart: There is a mild pericardial effusion. ABDOMEN: Liver: Unremarkable. Gallbladder: Removed. Biliary ducts: Unremarkable. Pancreas: Unremarkable. Spleen: Unremarkable. Adrenal Glands: There is generalized thickening of the adrenal glands, yet without focal adrenal nodules. Kidneys and Ureters: Unremarkable. Stomach and Bowel: Stomach, small bowel loops, and colon are unremarkable. A normal appendix is noted. Colonic diverticulosis is seen, without findings of active diverticulitis. Peritoneum: No abnormal intraperitoneal fluid. No free air. Ventral Wall: No hernia. Abdominal Nodes: No retroperitoneal or mesenteric adenopathy by size criteria. Vessels: Aorta and inferior vena cava are normal in size. PELVIS: Pelvic Organs: The uterus appears normal for age. There is a fat containing lesion involving the right ovary, measuring up to 2.9 cm. Bladder: Unremarkable. Pelvic Nodes: No enlarged lymph nodes. Miscellaneous: No inguinal hernias are seen. Generalized soft tissue swelling can be seen involving medial superior left thigh, with soft tissue gas seen. Generalized skin thickening can be seen. No focal fluid collection is seen to suggest abscess. No underlying muscular involvement is seen. Bones: There is a remote T12 anterior wedge deformity, with approximately 30% loss of height anteriorly. Focal degenerative change can be seen involving the T11-T12 level. Milder degenerative changes are seen elsewhere. IMPRESSION: Extensive left medial thigh inflammatory change, with associated soft tissue gas. Please correlate with penetrating injury. Please consider surgical consultation. No drainable abscess is seen. No involvement of the more superior pelvis can be seen. No prior rectal involvement. Mild pericardial effusion. 2.9 cm fat containing lesion involving the right ovary, which is attributed to a dermoid. Additional findings: Cholecystectomy Generalized thickening of the adrenal glands, without focal adrenal nodules Normal appendix Diverticulosis, without active diverticulitis Remote T12 anterior wedge deformity Note: Findings and recommendations discussed by telephone with Dr. Watkins at 1:12 p.m. [place] time on November 18, 2022. Dictated by: Elias Goldstein M.D. on 11/18/2022 at 13:06 Approved by: Elias Goldstein M.D. on 11/18/2022 at 13:13
[2022-11-18 13:31] LABS: Add Manual Diff / Slide Review NO; Basophils Absolute Auto 100 /uL (0-100); Basophils Percent Auto 0.6 % (0-2); Eosinophils Absolute Auto 100 /uL (0-450); Eosinophils Percent Auto 0.7 % (2-4); Hematocrit 41.9 % (36-46); Hemoglobin 14.3 g/dL (12.0-16.0); Lymphocytes Absolute Auto 800 /uL (1100-4500); Lymphocytes Percent Auto 6.5 % (25-40); Mean Corpuscular HGB Conc 34.1 % (30-36); Mean Corpuscular Hemoglobin 31.9 PG (26-34); Mean Corpuscular Volume 93.5 fL (80-100); Monocytes Absolute Auto 900 /uL (0-900); Monocytes Percent Auto 7.7 % (3-14); Neutrophils Absolute Auto 10000 /uL (1500-7000); Neutrophils Percent Auto 84.5 % (50-75); Platelet Count 206 X10^3/uL (150-400); Red Blood Cell Count 4.48 X10^6/uL (4.0-5.2); Red Cell Distribution Width 14.7 % (11.6-14.8); White Blood Cell Count 11.9 X10^3/uL (4.5-11.0)
[2022-11-18 13:34] LABS: INR 1.2 (0.9-1.3); Prothrombin Time 13.7 SECONDS (10.1-12.7)
[2022-11-18 13:36] LABS: PTT Partial Thromboplastin Tim 29 SECONDS (26-36)
[2022-11-18 13:37] LABS: Alanine Aminotransferase 38 IU/L (<35); Albumin 3.5 g/dL (3.5-5.0); Alkaline Phosphatase 297 U/L (38-126); Aspartate Aminotransferase 27 IU/L (14-36); Bilirubin Total 1.8 mg/dL (0.2-1.3); Blood Urea Nitrogen 18 mg/dL (7-17); Calcium 9.2 mg/dL (8.4-10.2); Carbon Dioxide 30 mmol/L (22-32); Chloride 94 mmol/L (98-107); Estimated Glomerular Filt Rate > 60 mL/min (>60); Globulin 3.4 g/dL (1.7-4.1); Glucose 388 mg/dL (70-100); HEMOLYSIS < 15 (0-50); Lipase 12 U/L (23-300); Potassium 4.4 mmol/L (3.4-5.1); Sodium 130 mmol/L (137-145); Total Protein 6.9 g/dL (6.3-8.2)
[2022-11-18 13:38] LABS: Lactate (Lactic Acid) 1.1 mmol/L (0.7-2.1)
[2022-11-18 13:54] LABS: Procalcitonin 0.16 ng/mL (<0.5)
[2022-11-18] MEDS: KETOROLAC 30 MG/ML VIAL 15 MG IV (14:10)
[2022-11-18] MEDS: cefTRIAXone 2,000 MG in SODIUM CHLORIDE 0.9% 100 ML 200 MG IV (14:10)
[2022-11-18 14:17] LABS: Appearance Urine UA CLEAR; Bilirubin Urine UA 1+ (NEGATIVE); Color Urine UA YELLOW; Glucose Urine UA 3+ g/dL (Negative); Ketones Urine UA 1+ (NEGATIVE); Leukocyte Esterase Urine UA NEGATIVE (NEGATIVE); Nitrite Urine UA NEGATIVE (Negative); Occult Blood Urine UA NEGATIVE (Negative); Protein Urine UA 1+ (Negative)
--- NOTE | 2022-11-18 14:19 | PC.NURSE ---
Pt sat 88 on RA, placed on 2L, now 98%
[2022-11-18 14:20] LABS: pH Urine UA 5.5 (4.5-8.0)
[2022-11-18 14:24] LABS: Bacteria Urine Few (2-10); Ictotest Urine Positive (Negative); RBC Urine 5-10/HPF (0-5/HPF); Squamous Epithelial Cell Urine 1-5 /HPF (0-5/HPF); WBC Urine 0-1/HPF (0-5/HPF)
[2022-11-18 14:25] LABS: Culture Indicated Urine Cult Not Indicated
[2022-11-18 14:30] LABS: COVID19 -Nasal RAPID Negative (Negative)
[2022-11-18] MEDS: VANCOMYCIN 1,500 MG/300 ML PIGGYBACK 200 MG IV (14:55)
--- NOTE | 2022-11-18 17:05 | PM.CN ---
History of Present Illness Consult details Date Patient Seen: 11/18/22 Time Patient Seen: 17:05 Chief complaint: bitten by brown recluse/swelling lt leg groin area Narrative: Mirta is a 56-year-old woman with diabetes and history of substance abuse who is currently clean. She believes she was bitten by a spider 5 days ago near her vagina. She started to develop swelling and pain in the left upper medial thigh. A CT scan today shows phlegmon with some locules of air soft tissue. There is no drainable fluid collection. Meds Home Medications and Allergies Home Medications Medication Instructions Recorded Confirmed Type acetaminophen 325 mg tablet 325 - 650 mg PO Q6HP PRN pain 08/07/18 08/07/18 History albuterol sulfate 90 mcg/actuation 2 puff inhalation Q4H PRN Wheezing 08/07/18 08/07/18 History aerosol inhaler benzonatate 100 mg capsule 100 mg PO TID PRN Cough 08/07/18 08/07/18 History cetirizine 10 mg tablet 10 mg PO DAILY 08/07/18 08/07/18 History cholestyramine (with sugar) 4 gram 4 gram PO BID diarrhea #378 grams 08/07/18 Rx oral powder clotrimazole 2 % vaginal cream 08/07/18 History cyclobenzaprine 10 mg tablet 10 mg PO TID PRN Pain, Severe 08/07/18 08/07/18 History fluticasone propionate 45 1 puff inhalation BID 08/07/18 08/07/18 History mcg-salmeterol 21 mcg/actuation HFA inhaler gabapentin 300 mg capsule 600 mg PO DAILY 08/07/18 08/07/18 History gabapentin 300 mg capsule 900 mg PO BID 08/07/18 08/07/18 History ibuprofen 800 mg tablet 800 mg PO TID 08/07/18 08/07/18 History liothyronine 50 mcg tablet 100 mcg PO DAILY 08/07/18 08/07/18 History metformin 500 mg tablet 500 mg PO BID 08/07/18 08/07/18 History omeprazole 40 mg capsule,delayed 40 mg PO BID 08/07/18 08/07/18 History release Allergies Allergy/AdvReac Type Severity Reaction Status Date / Time codeine [CODEINE] Allergy Unknown Verified 10/05/19 20:33 fluconazole [From DIFLUCAN] Allergy Unknown Verified 10/05/19 20:33 morphine [MORPHINE] Allergy Unknown Verified 10/05/19 20:33 Penicillins [PENICILLINS] Allergy Unknown Verified 10/05/19 20:33 All Opiates per patient Allergy Uncoded 10/05/19 20:33 Exam Vital Signs (past 8 hours): - 11/18/22 12:04 11/18/22 12:42 11/18/22 12:43 Temperature 100 F H Pulse Rate 84 78 Respiratory Rate 16 17 Blood Pressure 133/66 118/71 Pulse Oximetry 95 Oxygen Delivery Method Room Air Oxygen Flow Rate 11/18/22 12:43 11/18/22 12:45 11/18/22 12:45 Temperature Pulse Rate 78 81 Respiratory Rate 19 21 Blood Pressure 128/71 Pulse Oximetry 93 Oxygen Delivery Method Nasal Cannula Oxygen Flow Rate 2 11/18/22 13:00 11/18/22 13:00 11/18/22 13:15 Temperature Pulse Rate 77 Respiratory Rate 19 Blood Pressure 129/74 138/82 Pulse Oximetry 94 Oxygen Delivery Method Nasal Cannula Oxygen Flow Rate 2 11/18/22 13:15 11/18/22 13:30 11/18/22 13:31 Temperature Pulse Rate 78 76 Respiratory Rate 17 20 Blood Pressure 133/59 L Pulse Oximetry 97 97 Oxygen Delivery Method Nasal Cannula Oxygen Flow Rate 2 11/18/22 13:31 11/18/22 14:00 11/18/22 14:02 Temperature Pulse Rate 76 74 75 Respiratory Rate 19 19 19 Blood Pressure Pulse Oximetry 97 96 97 Oxygen Delivery Method Nasal Cannula Oxygen Flow Rate 2 11/18/22 14:02 11/18/22 14:15 11/18/22 14:15 Temperature Pulse Rate 74 Respiratory Rate 15 Blood Pressure 119/56 L 129/65 Pulse Oximetry 98 Oxygen Delivery Method Nasal Cannula Oxygen Flow Rate 2 11/18/22 14:30 11/18/22 14:35 11/18/22 14:35 Temperature Pulse Rate 75 74 Respiratory Rate 18 18 Blood Pressure 126/63 Pulse Oximetry 96 97 Oxygen Delivery Method Oxygen Flow Rate 11/18/22 14:45 11/18/22 15:00 11/18/22 15:15 Temperature Pulse Rate 75 74 75 Respiratory Rate 22 17 16 Blood Pressure 117/66 Pulse Oximetry 99 99 99 Oxygen Delivery Method Oxygen Flow Rate 11/18/22 15:30 11/18/22 15:45 11/18/22 16:00 Temperature Pulse Rate 78 75 77 Respiratory Rate 18 22 23 Blood Pressure 118/78 Pulse Oximetry 99 99 97 Oxygen Delivery Method Oxygen Flow Rate 11/18/22 16:07 11/18/22 16:07 11/18/22 16:15 Temperature Pulse Rate 74 74 Respiratory Rate 15 23 Blood Pressure 119/82 Pulse Oximetry 96 97 Oxygen Delivery Method Oxygen Flow Rate 11/18/22 16:22 11/18/22 16:22 11/18/22 16:24 Temperature Pulse Rate 74 Respiratory Rate 18 Blood Pressure 109/66 109/58 L Pulse Oximetry 97 Oxygen Delivery Method Oxygen Flow Rate 11/18/22 16:24 11/18/22 16:30 11/18/22 16:30 Temperature Pulse Rate 74 72 Respiratory Rate 15 16 Blood Pressure 108/56 L Pulse Oximetry 95 94 Oxygen Delivery Method Oxygen Flow Rate 11/18/22 16:45 Temperature Pulse Rate 74 Respiratory Rate 14 Blood Pressure Pulse Oximetry 95 Oxygen Delivery Method Oxygen Flow Rate Oxygen Delivery Method Nasal Cannula Oxygen Flow Rate 2 Narrative Exam Narrative: Left medial thigh is tender and inflamed with no drainage She is able to move her lower extremity Objective Labs 11/18/22 13:10 11/18/22 13:10 Labs: Laboratory Results - last 24 hr 11/18/22 11/18/22 11/18/22 12:23 13:10 14:07 WBC 11.9 H RBC 4.48 Hgb 14.3 Hct 41.9 MCV 93.5 MCH 31.9 MCHC 34.1 RDW 14.7 Plt Count 206 Neut % (Auto) 84.5 H Lymph % (Auto) 6.5 L [place] % (Auto) 7.7 Eos % (Auto) 0.7 L Baso % (Auto) 0.6 Neut # (Auto) 32164 H Lymph # (Auto) 800 L [place] # (Auto) 900 Eos # (Auto) 100 Baso # (Auto) 100 PT 13.7 H INR 1.2 APTT 29 Sodium 130 L Potassium 4.4 Chloride 94 L Carbon Dioxide 30 BUN 18 H Creatinine 0.58 Estimated GFR > 60 BUN/Creatinine Ratio 31.0 H Glucose 388 H Lactate 1.1 Calcium 9.2 Total Bilirubin 1.8 H AST 27 ALT 38 H Alkaline Phosphatase 297 H Total Protein 6.9 Albumin 3.5 Globulin 3.4 Albumin/Globulin Ratio 1.0 Lipase 12 L Procalcitonin 0.16 Urine Color Yellow Urine Appearance Clear Urine pH 5.5 Ur Specific [place] 1.020 Urine Protein 1+ H Urine Glucose (UA) 3+ H Urine Ketones 1+ H Urine Occult Blood Negative Urine Nitrate Negative Urine Bilirubin 1+ H Ur Bilirubin Confirm Positive H Urine Urobilinogen 4.0 H Ur Leukocyte Esterase Negative Urine RBC 5-10/hpf H Urine WBC 0-1/hpf Ur Squamous Epith Cells 1-5 /hpf Urine Bacteria Few (2-10) H Ur Culture Indicated? Cult not indicated SARS-CoV-2 (PCR) Negative [facility] Medical History Tobacco dependence PTSD (post-traumatic stress disorder) Asthma Fibromyalgia Diabetic neuropathy Uncontrolled diabetes mellitus Methamphetamine abuse Surgical History S/P section S/P jaren Tobacco & Substance Use Smoking Status: Current every day smoker Assessment & Plan Assessment and plan (1) Cellulitis of left lower extremity: Status: Acute Plan Recommend admission for IV antibiotics. I will reassess the wound tomorrow morning and if it is worse she may need debridement in the OR. She should be NPO after midnight. Hold off on Lovenox for now.
--- NOTE | 2022-11-18 17:16 | PC.NURSE ---
General diet ordered. Pt is allowed to eat until midnight. NPO after midnight.
--- NOTE | 2022-11-18 17:50 | PC.NURSE ---
Pt is sitting up in bed eating dinner. BP cuff off to allow for mealtime.
--- NOTE | 2022-11-18 18:52 | PC.NURSE ---
Patient oriented to her room, changed into a gown, all of her home medications will be taken and locked up after she is admitted to the hospital. She is alert and oriented x4. Patient denies pain at this time and will be npo after 0000.
--- NOTE | 2022-11-18 21:41 | P.HP_ITS ---
History of Present Illness History of Present Illness Date Patient Seen: 11/18/22 Chief complaint: bitten by brown recluse/swelling lt leg groin area Narrative: 56 y/o, morbidly obese diabetic, presented to ED 5 days after she was bitten by a spider with cellulitis of Lt upper, inner thigh and likely developing abscess. The infected area is 15 cm in diameter, very tender to touch. No fever or chills at home. Pain gradually increased so much that she decided to come to ED. With PMH of substance use she is reluctant to use narcotics for pain. [facility] Medical History Tobacco dependence PTSD (post-traumatic stress disorder) Asthma Fibromyalgia Diabetic neuropathy Uncontrolled diabetes mellitus Methamphetamine abuse Surgical History S/P section S/P jaren Social History household members: other Smoking Status: Current every day smoker alcohol intake: never Meds Home Medications and Allergies Home Medications Medication Instructions Recorded Confirmed Type acetaminophen 325 mg tablet 325 - 650 mg PO Q6HP PRN pain 08/07/18 11/18/22 History ibuprofen 800 mg tablet 800 mg PO TID 08/07/18 11/18/22 History cephalexin 500 mg capsule 500 mg PO 4XD 11/18/22 11/18/22 History clobetasol 0.05 % topical ointment 1 applic topical DAILY PRN Rash 11/18/22 11/18/22 History ipratropium 20 mcg-albuterol 100 1 puff inhalation 4XD 11/18/22 11/18/22 History mcg/actuation mist for inhalation (Combivent Respimat) omeprazole 20 mg capsule,delayed 20 mg PO DAILY 11/18/22 11/18/22 History release Allergies Allergy/AdvReac Type Severity Reaction Status Date / Time codeine [CODEINE] Allergy Unknown Verified 10/05/19 20:33 fluconazole [From DIFLUCAN] Allergy Unknown Verified 10/05/19 20:33 morphine [MORPHINE] Allergy Unknown Verified 10/05/19 20:33 Penicillins [PENICILLINS] Allergy Unknown Verified 10/05/19 20:33 All Opiates per patient Allergy Uncoded 10/05/19 20:33 Review of Systems Constitutional Comments: No sweats, chills or fever at home Eyes Comments: w/o recent vision changes Cardiovascular Comments: w/o chest pain or palpitations Respiratory Comments: short of breath, w/o cough Gastrointestinal Comments: w/o complaints, occasionally heartburn Genitourinary Comments: w/o dysuria Musculoskeletal Comments: chronic myalgia / arthralgia Neurologic Comments: w/o focal weakness chronic b/l leg diabetic neuropathic pain Hematologic/Lymphatic Comments: w/o bruising or bleeding Exam Vital Signs (past 8 hours): - 11/18/22 14:00 11/18/22 14:02 11/18/22 14:02 Temperature Pulse Rate 74 75 Respiratory Rate 19 19 Blood Pressure 119/56 L Pulse Oximetry 96 97 Oxygen Delivery Method Nasal Cannula Oxygen Flow Rate 2 11/18/22 14:15 11/18/22 14:15 11/18/22 14:30 Temperature Pulse Rate 74 75 Respiratory Rate 15 18 Blood Pressure 129/65 Pulse Oximetry 98 96 Oxygen Delivery Method Nasal Cannula Oxygen Flow Rate 2 11/18/22 14:35 11/18/22 14:35 11/18/22 14:45 Temperature Pulse Rate 74 75 Respiratory Rate 18 22 Blood Pressure 126/63 Pulse Oximetry 97 99 Oxygen Delivery Method Oxygen Flow Rate 11/18/22 15:00 11/18/22 15:15 11/18/22 15:30 Temperature Pulse Rate 74 75 78 Respiratory Rate 17 16 18 Blood Pressure 117/66 118/78 Pulse Oximetry 99 99 99 Oxygen Delivery Method Oxygen Flow Rate 11/18/22 15:45 11/18/22 16:00 11/18/22 16:07 Temperature Pulse Rate 75 77 Respiratory Rate 22 23 Blood Pressure 119/82 Pulse Oximetry 99 97 Oxygen Delivery Method Oxygen Flow Rate 11/18/22 16:07 11/18/22 16:15 11/18/22 16:22 Temperature Pulse Rate 74 74 Respiratory Rate 15 23 Blood Pressure 109/66 Pulse Oximetry 96 97 Oxygen Delivery Method Oxygen Flow Rate 11/18/22 16:22 11/18/22 16:24 11/18/22 16:24 Temperature Pulse Rate 74 74 Respiratory Rate 18 15 Blood Pressure 109/58 L Pulse Oximetry 97 95 Oxygen Delivery Method Oxygen Flow Rate 11/18/22 16:30 11/18/22 16:30 11/18/22 16:45 Temperature Pulse Rate 72 74 Respiratory Rate 16 14 Blood Pressure 108/56 L Pulse Oximetry 94 95 Oxygen Delivery Method Oxygen Flow Rate 11/18/22 17:00 11/18/22 17:00 11/18/22 17:15 Temperature Pulse Rate 77 74 Respiratory Rate 14 14 Blood Pressure 116/59 L Pulse Oximetry 98 97 Oxygen Delivery Method Oxygen Flow Rate 11/18/22 17:30 11/18/22 17:30 11/18/22 17:45 Temperature Pulse Rate 73 80 Respiratory Rate 19 28 H Blood Pressure 109/58 L 112/60 Pulse Oximetry 93 98 Oxygen Delivery Method Room Air Oxygen Flow Rate 11/18/22 18:00 11/18/22 18:02 11/18/22 18:02 Temperature Pulse Rate 81 80 Respiratory Rate 33 H 17 Blood Pressure 126/66 126/66 Pulse Oximetry 93 93 Oxygen Delivery Method Oxygen Flow Rate 11/18/22 18:15 11/18/22 18:30 11/18/22 19:14 Temperature 97.7 F Pulse Rate 79 76 82 Respiratory Rate 18 18 Blood Pressure 115/62 Pulse Oximetry 92 93 96 Oxygen Delivery Method Room Air Room Air Oxygen Flow Rate 0 11/18/22 19:50 11/18/22 20:19 11/18/22 20:56 Temperature 97.1 F L Pulse Rate 75 Respiratory Rate 18 Blood Pressure 106/45 L 98/56 L Pulse Oximetry 95 Oxygen Delivery Method Nasal Cannula Oxygen Flow Rate 0 Oxygen Delivery Method Nasal Cannula Oxygen Flow Rate 0 Const Other: laying in bed in no distress, morbidly obese [facility] Other: oral crowding Eyes Other: eomi Resp Other: decreased airflow b/l Cardio Other: RRR GI Other: obese abdomen Skin Other: large, 15 cm in diameter, swollen, tender, erythematous area on Lt upper, inner thigh. Without palpable fluctuation as per bedside RN. Neuro Other: w/o deficits Psych Other: appropriate mood and affect, lucid Objective Labs 11/18/22 13:10 11/18/22 13:10 Labs: Laboratory Results - last 24 hr 11/18/22 11/18/22 11/18/22 12:23 13:10 14:07 WBC 11.9 H RBC 4.48 Hgb 14.3 Hct 41.9 MCV 93.5 MCH 31.9 MCHC 34.1 RDW 14.7 Plt Count 206 Neut % (Auto) 84.5 H Lymph % (Auto) 6.5 L [place] % (Auto) 7.7 Eos % (Auto) 0.7 L Baso % (Auto) 0.6 Neut # (Auto) 82016 H Lymph # (Auto) 800 L [place] # (Auto) 900 Eos # (Auto) 100 Baso # (Auto) 100 PT 13.7 H INR 1.2 APTT 29 Sodium 130 L Potassium 4.4 Chloride 94 L Carbon Dioxide 30 BUN 18 H Creatinine 0.58 Estimated GFR > 60 BUN/Creatinine Ratio 31.0 H Glucose 388 H Lactate 1.1 Calcium 9.2 Total Bilirubin 1.8 H AST 27 ALT 38 H Alkaline Phosphatase 297 H Total Protein 6.9 Albumin 3.5 Globulin 3.4 Albumin/Globulin Ratio 1.0 Lipase 12 L Procalcitonin 0.16 Urine Color Yellow Urine Appearance Clear Urine pH 5.5 Ur Specific [place] 1.020 Urine Protein 1+ H Urine Glucose (UA) 3+ H Urine Ketones 1+ H Urine Occult Blood Negative Urine Nitrate Negative Urine Bilirubin 1+ H Ur Bilirubin Confirm Positive H Urine Urobilinogen 4.0 H Ur Leukocyte Esterase Negative Urine RBC 5-10/hpf H Urine WBC 0-1/hpf Ur Squamous Epith Cells 1-5 /hpf Urine Bacteria Few (2-10) H Ur Culture Indicated? Cult not indicated SARS-CoV-2 (PCR) Negative Assessment & Plan Assessment and plan (1) Cellulitis and abscess of left leg: Status: Acute Plan: Empiric Vancomycin / Rocephin started in ED Seen by Sx - npo after midnight for likely OR in AM Pain management with tylenol, NSAIDs, refusing narcotics due to Hx of substance abuse (2) Skin candidiasis: Status: Acute Plan: groin, folds, nystatin (3) Uncontrolled diabetes mellitus: Status: Chronic Plan: SS, NPO for OR, IVFs - A1C pending (4) Diabetic neuropathy: Status: Chronic Plan: Gabapentin with resumed PO (5) Asthma: Status: Chronic Plan: Pulmicort bid (at home on symbicort_, duoneb qid, albuterol nebs prn (6) Tobacco dependence: Status: Acute Plan: Nicotine patch prn (7) GERD (gastroesophageal reflux disease): Status: Acute Plan: PPI (8) Fibromyalgia: Status: Chronic (9) KEVAN (obstructive sleep apnea): Status: Acute Plan: Used to have CPAP but wasn't able to tolerate it Without home oxygen O2 NC to keep sats > 92 (10) Morbid obesity: Status: Acute Quality VTE Deep Vein Thrombosis/Pulmonary Embolism Present on Admission: No
[2022-11-18] MEDS: LACTATED RINGERS 1,000 ML 100 ML IV (22:29)
[2022-11-18] MEDS: INSULIN LISPRO 100 UNIT/ML 3ML VIAL SUBCUT (22:42)
[2022-11-18] MEDS: KETOROLAC 30 MG/ML VIAL IV (23:26)
[2022-11-19] VITALS (8 sets, daily range): BP systolic 108–124; BP diastolic 49–70; PULSE 75–84; RESP 14–20; TEMP 36.6–37.4; O2SAT 93–97
[2022-11-19] MEDS: VANCOMYCIN 1,500 MG/300 ML PIGGYBACK 200 MG IV ×2 (01:17→14:53)
[2022-11-19 05:55] LABS: Add Manual Diff / Slide Review NO; Basophils Absolute Auto 100 /uL (0-100); Basophils Percent Auto 0.9 % (0-2); Eosinophils Absolute Auto 100 /uL (0-450); Hematocrit 40.6 % (36-46); Hemoglobin 13.6 g/dL (12.0-16.0); Lymphocytes Absolute Auto 900 /uL (1100-4500); Lymphocytes Percent Auto 8.1 % (25-40); Mean Corpuscular HGB Conc 33.5 % (30-36); Mean Corpuscular Hemoglobin 31.3 PG (26-34); Mean Corpuscular Volume 93.6 fL (80-100); Monocytes Absolute Auto 800 /uL (0-900); Monocytes Percent Auto 7.6 % (3-14); Neutrophils Absolute Auto 8700 /uL (1500-7000); Neutrophils Percent Auto 82.4 % (50-75); Platelet Count 192 X10^3/uL (150-400); Red Blood Cell Count 4.34 X10^6/uL (4.0-5.2); White Blood Cell Count 10.6 X10^3/uL (4.5-11.0)
[2022-11-19 06:23] LABS: BUN Creatinine Ratio 32.7 (6-22); Blood Urea Nitrogen 18 mg/dL (7-17); Calcium 8.7 mg/dL (8.4-10.2); Carbon Dioxide 30 mmol/L (22-32); Chloride 95 mmol/L (98-107); Estimated Glomerular Filt Rate > 60 mL/min (>60); Glucose 324 mg/dL (70-100); HEMOLYSIS < 15 (0-50); Potassium 3.8 mmol/L (3.4-5.1); Sodium 130 mmol/L (137-145)
[2022-11-19 06:25] LABS: Hemoglobin A1C% w Est Avg Glu 12.3 % (4.0-6.0)
--- NOTE | 2022-11-19 08:26 | PC.NURSE ---
Addendum entered by Andie Diaz R.N. 11/19/22 10:45: Patient is now on an ada diet, and she has different insulin orders. 20u of lantus given to patient and she tolerated this well. We will get a u/a when patient gets up to use the bathroom. Blood Sugar 302. Original Note: Patient has been npo since midnight, she sleeping soundly. Will check blood sugar and give patient her insulin dosage around 0930. She is q6 hour checks as she is npo now. L.inner/upper groin is swollen, red and erythemic. She also has some permanent marker for margines around the abcessed area. Patient got bit by a spider she states. Denies pain at this time.
--- NOTE | 2022-11-19 09:14 | PM.PN.1 ---
Subjective Subjective Date Patient Seen: 11/19/22 Time Patient Seen: 09:14 Interval history: Pain is about the same as yesterday. She wants to either have surgery or eat. Exam Vital Signs (past 8 hours): - 11/19/22 01:18 11/19/22 04:48 11/19/22 08:00 Temperature 99.4 F 98.2 F Pulse Rate 76 75 82 Respiratory Rate 18 20 18 Blood Pressure 108/49 L 109/58 L Pulse Oximetry 93 97 96 Oxygen Delivery Method Oxygen Flow Rate 3 0 2 Fraction of Inspired Oxygen 11/19/22 08:15 Temperature Pulse Rate 80 Respiratory Rate 14 Blood Pressure Pulse Oximetry 96 Oxygen Delivery Method Nasal Cannula Oxygen Flow Rate 2 Fraction of Inspired Oxygen 28 Fraction of Inspired Oxygen 28 SaO2/FiO2 Ratio 342 Oxygen Delivery Method Nasal Cannula Oxygen Flow Rate 2 Narrative Exam Narrative: Left upper inner thigh is tender to palpation similar to night The area of erythema has expanded about 10%. No obvious bulla or blisters within the area of erythema Objective Labs 11/19/22 05:24 11/19/22 05:24 Labs: Laboratory Results - last 24 hr 11/18/22 11/18/22 11/18/22 12:23 13:10 14:07 WBC 11.9 H RBC 4.48 Hgb 14.3 Hct 41.9 MCV 93.5 MCH 31.9 MCHC 34.1 RDW 14.7 Plt Count 206 Neut % (Auto) 84.5 H Lymph % (Auto) 6.5 L [place] % (Auto) 7.7 Eos % (Auto) 0.7 L Baso % (Auto) 0.6 Neut # (Auto) 03533 H Lymph # (Auto) 800 L [place] # (Auto) 900 Eos # (Auto) 100 Baso # (Auto) 100 PT 13.7 H INR 1.2 APTT 29 Sodium 130 L Potassium 4.4 Chloride 94 L Carbon Dioxide 30 BUN 18 H Creatinine 0.58 Estimated GFR > 60 BUN/Creatinine Ratio 31.0 H Glucose 388 H Hemoglobin A1c Lactate 1.1 Calcium 9.2 Total Bilirubin 1.8 H AST 27 ALT 38 H Alkaline Phosphatase 297 H Total Protein 6.9 Albumin 3.5 Globulin 3.4 Albumin/Globulin Ratio 1.0 Lipase 12 L Procalcitonin 0.16 Urine Color Yellow Urine Appearance Clear Urine pH 5.5 Ur Specific [place] 1.020 Urine Protein 1+ H Urine Glucose (UA) 3+ H Urine Ketones 1+ H Urine Occult Blood Negative Urine Nitrate Negative Urine Bilirubin 1+ H Ur Bilirubin Confirm Positive H Urine Urobilinogen 4.0 H Ur Leukocyte Esterase Negative Urine RBC 5-10/hpf H Urine WBC 0-1/hpf Ur Squamous Epith Cells 1-5 /hpf Urine Bacteria Few (2-10) H Ur Culture Indicated? Cult not indicated SARS-CoV-2 (PCR) Negative 11/19/22 05:24 WBC 10.6 RBC 4.34 Hgb 13.6 Hct 40.6 MCV 93.6 MCH 31.3 MCHC 33.5 RDW 15.0 H Plt Count 192 Neut % (Auto) 82.4 H Lymph % (Auto) 8.1 L [place] % (Auto) 7.6 Eos % (Auto) 1.0 L Baso % (Auto) 0.9 Neut # (Auto) 8700 H Lymph # (Auto) 900 L [place] # (Auto) 800 Eos # (Auto) 100 Baso # (Auto) 100 PT INR APTT Sodium 130 L Potassium 3.8 Chloride 95 L Carbon Dioxide 30 BUN 18 H Creatinine 0.55 Estimated GFR > 60 BUN/Creatinine Ratio 32.7 H Glucose 324 H Hemoglobin A1c 12.3 H Lactate Calcium 8.7 Total Bilirubin AST ALT Alkaline Phosphatase Total Protein Albumin Globulin Albumin/Globulin Ratio Lipase Procalcitonin Urine Color Urine Appearance Urine pH Ur Specific [place] Urine Protein Urine Glucose (UA) Urine Ketones Urine Occult Blood Urine Nitrate Urine Bilirubin Ur Bilirubin Confirm Urine Urobilinogen Ur Leukocyte Esterase Urine RBC Urine WBC Ur Squamous Epith Cells Urine Bacteria Ur Culture Indicated? SARS-CoV-2 (PCR) [facility] Medical History Tobacco dependence PTSD (post-traumatic stress disorder) Asthma Fibromyalgia Diabetic neuropathy Uncontrolled diabetes mellitus Methamphetamine abuse Surgical History S/P section S/P jaren Social History household members: other Smoking Status: Current every day smoker alcohol intake: never Assessment & Plan Assessment and plan (1) Cellulitis of left lower extremity: Status: Acute Plan There is currently no drainable abscess. I recommend continuation of IV antibiotics and glucose control. If she develops a drainable abscess at some point we can perform that in the operating room. She can have inappropriate diet now. Quality VTE Deep Vein Thrombosis/Pulmonary Embolism Present on Admission: No
[2022-11-19] MEDS: INSULIN GLARGINE 100 UNIT/ML 3ML PEN 20 UNIT SUBCUT ×2 (10:26→21:23)
[2022-11-19] MEDS: KETOROLAC 30 MG/ML VIAL IV ×2 (12:12→21:21)
[2022-11-19] MEDS: PANTOPRAZOLE DR 20 MG TABLET PO (12:12)
[2022-11-19 12:36] LABS: UR Morphine/Opiate cutoff 300 Negative (Negative); Ur Creatinine Normal (Normal); Ur Specific Gravity Normal (Normal); Urine Amphetamines Negative (Negative); Urine Barbiturates Negative (Negative); Urine Benzodiazepines Negative (Negative); Urine Cocaine Negative (Negative); Urine MDMA Negative (Negative); Urine Methadone Negative (Negative); Urine Methamphetamines Negative (Negative); Urine Oxycodone Negative (Negative); Urine Phencyclidine Negative (Negative); Urine Tetrahydrocannabinol Negative (Negative); Urine Tricyclic Antidepressant Negative (Negative); Urine pH Normal (Normal)
[2022-11-19] MEDS: INSULIN LISPRO 100 UNIT/ML 3ML VIAL SUBCUT ×3 (12:56→21:22)
[2022-11-19 13:48] LABS: Magnesium 1.9 mg/dL (1.6-2.3)
--- NOTE | 2022-11-19 14:20 | CM.DANOTE ---
Initial DCP Assessment Note Pt is a 56 yo female, resident [facility] [place], arrives with increase in swelling and pain in her groin/vagina, patient reports being bit by a recluse spider. Patient admitted for management of Cellulitis of left lower extremity. PMH includes polysubstance use, Tox screen Neg. According to Dr Obrien, there is currently no drainable abscess. Patient will continue IV abx, no need for I+D at this time. PCP: Unknown Payer: [employer] Reviewed chart, met w/patient to introduce self and role. Patient is resistant to initial assessment line of questioning and appears and sounds suspicious of this [employer]. Patient confirms she lives currently at [facility], [facility], and has been sober for 15 months. Patient w/hx of drug use and housing instability. Patient expresses numerous complaints but seems to have a hard time addressing how this [employer] can assist today. Patient admits her mobility has been limited r/t the swelling and pain in her groin, then mentions that it has also been difficult to wash and comb her hair d/t upper body soreness. Patient is indp at baseline, states she is disabled, does not want to elaborate. Patient is worried she will lose her spot at [facility]. Patient has been in touch with the managers of this home. Encouraged patient to stay in close touch with the house managers and patient agreed to do so. Patient hoping to have surgery in order to get this thing healed. Plan: Discharge plan will be dependent on patient's needs closer to [place]. Hopefully patient can safely return to her [facility], she will need to be completely indp. Patient will likely need Medicaid transport arranged. CM team will plan to follow closely as medical plan of care unfolds. SYLVIA Edouard Discharge Planning/Care Management CM Discharge Assessment Start: 11/19/22 14:18 Freq: Status: Active Protocol: Document 11/19/22 14:18 NUZHAT (Rec: 11/19/22 14:20 [email or web address] [id number]) Discharge Planning Assessment Assigned Ruling Machine Set Up Operator SYLVIA Palacios DPOA/Assigned Designee Name lorraine Fountain Contact Information [phone] Advance Directives? No Advance Directives on File No History Provided By Patient,Medical Record Prior Living Arrangements Fpc Comment lives in [facility], sober living house Household Members other Type of transporation used prior to Relies on Others admit Facility Name [facility] Independent with ADL's Yes: Says pain and swelling and limited her mobility Is patient alert and oriented? Yes Barriers to Discharge Yes Comment Large wound, no assistance available at [facility], patient needs to be indp and able to complete chores at this home Whiteboard Updated in Patient Room with Yes name and ext. # of Ruling Machine Set Up Operator
[2022-11-19] MEDS: DOXYCYCLINE HYCLATE 100 MG TABLET PO ×2 (14:53→21:23)
--- NOTE | 2022-11-19 15:46 | P.PN_ITS ---
Subjective Subjective Interval history: Patient's L thigh cellulitis is still very swollen and painful. Gen surg prefers to wait on surgical debridement as low suspicion for nec fasc and no discernable abscess. Exam Vital Signs (past 8 hours): - 11/19/22 08:00 11/19/22 08:15 11/19/22 12:00 Temperature 98.2 F Pulse Rate 82 80 77 Respiratory Rate 18 14 20 Blood Pressure 109/58 L 124/70 Pulse Oximetry 96 96 93 Oxygen Delivery Method Nasal Cannula Oxygen Flow Rate 2 2 Fraction of Inspired Oxygen 28 Fraction of Inspired Oxygen 28 SaO2/FiO2 Ratio 342 Oxygen Delivery Method Nasal Cannula Oxygen Flow Rate 2 Const Other: laying in bed in no distress, morbidly obese HENMT Other: oral crowding Eyes Other: eomi Resp Other: decreased airflow b/l Cardio Other: RRR GI Other: obese abdomen Skin Other: large, 15 cm in diameter, swollen, tender, erythematous area on Lt upper, inner thigh. Without palpable fluctuation as per bedside RN. Neuro Other: w/o deficits Psych Other: appropriate mood and affect, lucid Objective Labs 11/19/22 05:24 11/19/22 05:24 Labs: Laboratory Results - last 24 hr 11/19/22 11/19/22 05:24 10:14 WBC 10.6 RBC 4.34 Hgb 13.6 Hct 40.6 MCV 93.6 MCH 31.3 MCHC 33.5 RDW 15.0 H Plt Count 192 Neut % (Auto) 82.4 H Lymph % (Auto) 8.1 L [place] % (Auto) 7.6 Eos % (Auto) 1.0 L Baso % (Auto) 0.9 Neut # (Auto) 8700 H Lymph # (Auto) 900 L [place] # (Auto) 800 Eos # (Auto) 100 Baso # (Auto) 100 Sodium 130 L Potassium 3.8 Chloride 95 L Carbon Dioxide 30 BUN 18 H Creatinine 0.55 Estimated GFR > 60 BUN/Creatinine Ratio 32.7 H Glucose 324 H Hemoglobin A1c 12.3 H Calcium 8.7 Magnesium 1.9 U Opiates 300ng/mL cut Negative Ur Oxycodone Screen Negative Urine Methadone Screen Negative Ur Barbiturates Screen Negative U Tricyclic Antidepress Negative Ur Phencyclidine Scrn Negative Ur Amphetamines Screen Negative U Methamphetamines Scrn Negative Ur MDMA Scrn (Ecstasy) Negative U Benzodiazepines Scrn Negative Urine Cocaine Screen Negative U Marijuana (THC) Screen Negative PFSH Medical History Tobacco dependence PTSD (post-traumatic stress disorder) Asthma Fibromyalgia Diabetic neuropathy Uncontrolled diabetes mellitus Methamphetamine abuse Surgical History S/P section S/P jaren Social History household members: other Smoking Status: Current every day smoker alcohol intake: never Assessment & Plan Assessment and plan (1) Cellulitis and abscess of left leg: Status: Acute Plan: Empiric Vancomycin / Rocephin started in ED, added doxy due to potential spider bite Pain management with tylenol, NSAIDs, toradol, patient doesn't want narcotics due to Hx of substance abuse Gen surg rec IV abx alone and deferring debridement unless fails to improve (2) Skin candidiasis: Status: Acute Plan: groin, folds, nystatin (3) Uncontrolled diabetes mellitus: Status: Chronic Plan: Lantus 20 units BID, high dose SSI - A1C 12.3% (4) Diabetic neuropathy: Status: Chronic Plan: Gabapentin home dose (5) Asthma: Status: Chronic Plan: Pulmicort bid (at home on symbicort_, duoneb qid, albuterol nebs prn (6) Tobacco dependence: Status: Acute Plan: Nicotine patch prn (7) GERD (gastroesophageal reflux disease): Status: Acute Plan: PPI (8) Fibromyalgia: Status: Chronic (9) KEVAN (obstructive sleep apnea): Status: Acute Plan: Used to have CPAP but wasn't able to tolerate it Without home oxygen O2 NC to keep sats > 92 (10) Morbid obesity: Status: Acute (11) History of methamphetamine abuse: Status: Acute Plan: Utox negative, patient in clean and sober house for 1 year off meth Plan Dispo: Pending improvement in cellulitis. 3 days likely. May still need surgery. Quality VTE Deep Vein Thrombosis/Pulmonary Embolism Present on Admission: No
[2022-11-19] MEDS: cefTRIAXone 2,000 MG in SODIUM CHLORIDE 0.9% 100 ML 200 MG IV (16:49)
[2022-11-19] MEDS: NYSTATIN POWDER 15GM 1 APPLIC TOP (21:21)
[2022-11-20] VITALS (11 sets, daily range): BP systolic 96–144; BP diastolic 50–82; PULSE 84–105; RESP 15–22; TEMP 36.2–37.3; O2SAT 92–99; BMI 45.9
--- NOTE | 2022-11-20 | PATH_ITS ---
[facility] Accession Number: [id number] No. of containers..01 Tissue . 01 Material submitted: . groin - LEFT GROIN WOUND . 01 Diagnosis: Left Groin, Excision: Dermal and subcutaneous acute and chronic inflammation with microabscess formation and red blood cell extravasation. . Note: Vascular damage is also noted. However, given the clinical history of a wound, these changes are favored to be secondary rather than to represent true vasculitis. PAS stain is negative for fungal hyphae. Clinicopathiological correlation is advised for definitive diagnosis. . MRV 11/26/2022 1427 Local . 01 Comment: The histologic material was reviewed with Dr. Jose Romero, who concurs. . 01 Electronically signed: . Chasidy Pressley MD, Dermatopathologist NPI- [id number] . 01 Gross description: . The specimen is received in formalin labeled with the patient's name, , and L groin wound, consists of an unoriented fragment of skin measuring 3.2 x 1.9 cm and excised to a depth of 0.8 cm. The margins are inked blue. Sectioning reveals a pink-del rosario, soft cut surface. Lottery Sales Clerk sections are submitted in cassette A1. ([id number]) /MRV 11/21/2022 1319 Local . 01 Pathologist provided ICD-10: L98.9 . 01 CPT . 687712, 057314 Specimen Comment: A courtesy copy of this report has been sent to [phone] Performed at: [address] [facility] [address], [place], [place] [id number] MD Bernabe Mendoza MD Phone: [phone]
[2022-11-20] MEDS: VANCOMYCIN TROUGH 1 REQUEST MISC (01:35)
[2022-11-20 02:00] LABS: Add Manual Diff / Slide Review NO; Basophils Absolute Auto 0 /uL (0-100); Basophils Percent Auto 0.2 % (0-2); Eosinophils Absolute Auto 100 /uL (0-450); Eosinophils Percent Auto 0.8 % (2-4); Hematocrit 40.1 % (36-46); Hemoglobin 13.5 g/dL (12.0-16.0); Lymphocytes Absolute Auto 800 /uL (1100-4500); Mean Corpuscular HGB Conc 33.6 % (30-36); Mean Corpuscular Hemoglobin 31.4 PG (26-34); Mean Corpuscular Volume 93.4 fL (80-100); Monocytes Absolute Auto 700 /uL (0-900); Monocytes Percent Auto 5.6 % (3-14); Neutrophils Absolute Auto 10300 /uL (1500-7000); Neutrophils Percent Auto 86.4 % (50-75); Platelet Count 216 X10^3/uL (150-400); Red Blood Cell Count 4.29 X10^6/uL (4.0-5.2); Red Cell Distribution Width 14.9 % (11.6-14.8); White Blood Cell Count 11.9 X10^3/uL (4.5-11.0)
[2022-11-20 02:09] LABS: BUN Creatinine Ratio 30.8 (6-22); Blood Urea Nitrogen 20 mg/dL (7-17); Calcium 8.8 mg/dL (8.4-10.2); Carbon Dioxide 31 mmol/L (22-32); Chloride 96 mmol/L (98-107); Estimated Glomerular Filt Rate > 60 mL/min (>60); Glucose 158 mg/dL (70-100); HEMOLYSIS < 15 (0-50); Potassium 3.6 mmol/L (3.4-5.1); Sodium 133 mmol/L (137-145)
[2022-11-20] MEDS: VANCOMYCIN 1,500 MG/300 ML PIGGYBACK 200 MG IV ×2 (02:23→13:55)
[2022-11-20] MEDS: ONDANSETRON 4 MG ODT SL (02:23)
[2022-11-20 02:28] LABS: Vancomycin Trough 11.3 ug/mL (10-20)
--- NOTE | 2022-11-20 07:41 | DI.US.S_ITS ---
PROCEDURE: US EXTREMITY NONVASC LOWER LT INDICATIONS: LEFT MEDIAL/SUPERIOR THIGH CELLULITIS. RULE OUT ABSCESS. TECHNIQUE: Real-time scanning was performed of the left medial thigh , with image documentation. COMPARISON: [facility], CT, CT ABDOMEN PELVIS W CON, 11/18/2022, 13:41. Findings and impression: There is diffuse skin thickening and subcutaneous edema. In the area of interest, there is a hypoechoic region with fluid and air, likely with a tract to the skin, measuring 5.5 x 6.5 x 1.6 cm. No defined wall is present. This is likely a phlegmon with surrounding cellulitis changes. Consider continued imaging follow-up with clinical treatment. Differential includes necrotizing infection. Dictated by: Mike Liu M.D. on 11/20/2022 at 10:25 Approved by: Mike Liu M.D. on 11/20/2022 at 10:29
[2022-11-20] MEDS: INSULIN LISPRO 100 UNIT/ML 3ML VIAL SUBCUT ×2 (09:24→16:57)
[2022-11-20] MEDS: DOXYCYCLINE HYCLATE 100 MG TABLET PO (09:25)
[2022-11-20] MEDS: INSULIN GLARGINE 100 UNIT/ML 3ML PEN 20 UNIT SUBCUT ×2 (09:25→21:24)
[2022-11-20] MEDS: PANTOPRAZOLE DR 20 MG TABLET PO (09:25)
[2022-11-20] MEDS: NYSTATIN POWDER 15GM 1 APPLIC TOP ×2 (09:26→21:09)
[2022-11-20] MEDS: KETOROLAC 30 MG/ML VIAL IV ×2 (09:57→17:51)
[2022-11-20 10:50] LABS: Appearance Urine UA SL CLOUDY; Bilirubin Urine UA 3+ (NEGATIVE); Color Urine UA ORANGE; Glucose Urine UA 1+ g/dL (Negative); Ketones Urine UA TRACE (NEGATIVE); Leukocyte Esterase Urine UA 2+ (NEGATIVE); Nitrite Urine UA POSITIVE (Negative); Occult Blood Urine UA TRACE-INTACT (Negative); Protein Urine UA 2+ (Negative); Specific Gravity Urine UA 1.025 (1.000-1.035); Urobilinogen Urine UA >=8.0 E.U./dL (0.2)
[2022-11-20 10:54] LABS: pH Urine UA 6.5 (4.5-8.0)
[2022-11-20 10:55] LABS: Ictotest Urine Positive (Negative)
[2022-11-20 11:02] LABS: Bacteria Urine Few (2-10); RBC Urine 0-1/HPF (0-5/HPF); Squamous Epithelial Cell Urine 10-30 /HPF (0-5/HPF); WBC Urine 10-30/HPF (0-5/HPF)
[2022-11-20 11:03] LABS: Culture Indicated Urine Specimen Cultured
--- NOTE | 2022-11-20 11:57 | CM.DPC ---
DCP Cont. Reviewed chart and team rounds for status updates. Pt's leg mass continues to remain significantly large. Dr. Leos ordered an Ultrasound to clarify if this is an abcess or not to determine if surgery is indicated. Per Dr. Leos, pt likely to need 2-more days of inpt abo's. Continue to monitor. Medicaid transportation will need to be arranged for her d/c back to [facility] in [place].
--- NOTE | 2022-11-20 13:06 | PM.PN.1 ---
Subjective Subjective Date Patient Seen: 11/20/22 Time Patient Seen: 13:06 Interval history: Mirta complains of worsening pain of the thigh. The erythema is increasing. An ultrasound today showed question of a sinus tract. Exam Vital Signs (past 8 hours): - 11/20/22 05:10 11/20/22 08:00 Temperature 98.7 F 99.1 F Pulse Rate 92 H 94 H Respiratory Rate 20 17 Blood Pressure 111/67 106/56 L Pulse Oximetry 93 99 Oxygen Flow Rate 2 0 Fraction of Inspired Oxygen 28 SaO2/FiO2 Ratio 342 Oxygen Delivery Method Nasal Cannula Oxygen Flow Rate 0 Narrative Exam Narrative: Tender erythema of the left upper medial thigh has increased size Objective Labs 11/20/22 01:42 11/20/22 01:42 Labs: Laboratory Results - last 24 hr 11/19/22 11/20/22 11/20/22 05:24 01:42 10:38 WBC 11.9 H RBC 4.29 Hgb 13.5 Hct 40.1 MCV 93.4 MCH 31.4 MCHC 33.6 RDW 14.9 H Plt Count 216 Neut % (Auto) 86.4 H Lymph % (Auto) 7.0 L [place] % (Auto) 5.6 Eos % (Auto) 0.8 L Baso % (Auto) 0.2 Neut # (Auto) 48069 H Lymph # (Auto) 800 L [place] # (Auto) 700 Eos # (Auto) 100 Baso # (Auto) 0 Sodium 133 L Potassium 3.6 Chloride 96 L Carbon Dioxide 31 BUN 20 H Creatinine 0.65 Estimated GFR > 60 BUN/Creatinine Ratio 30.8 H Glucose 158 H D Calcium 8.8 Magnesium 1.9 Urine Color [place] Urine Appearance Sl cloudy Urine pH 6.5 Ur Specific [place] 1.025 Urine Protein 2+ H Urine Glucose (UA) 1+ H Urine Ketones Trace H Urine Occult Blood Trace-intact Urine Nitrate Positive H Urine Bilirubin 3+ H Ur Bilirubin Confirm Positive H Urine Urobilinogen >=8.0 Ur Leukocyte Esterase 2+ H Urine RBC 0-1/hpf Urine WBC 10-30/hpf H Ur Squamous Epith Cells 10-30 /hpf H D Urine Bacteria Few (2-10) H Urine Yeast 1-5/hpf H Ur Culture Indicated? Specimen cultured Vancomycin Trough 11.3 PFSH Medical History Tobacco dependence PTSD (post-traumatic stress disorder) Asthma Fibromyalgia Diabetic neuropathy Uncontrolled diabetes mellitus Methamphetamine abuse Surgical History S/P section S/P jaren Social History household members: other Smoking Status: Current every day smoker alcohol intake: never Assessment & Plan Assessment and plan (1) Cellulitis and abscess of left leg: Status: Acute Plan We will proceed with incision and drainage in the operating room today. Quality VTE Deep Vein Thrombosis/Pulmonary Embolism Present on Admission: No
[2022-11-20] MEDS: SODIUM CHLORIDE 0.9% 1,000 ML 1000 ML IV (13:31)
--- NOTE | 2022-11-20 13:55 | PC.NURSE ---
@1315 Nurses aide went in to take vital signs VSS except for oxygen saturation and BP. Oxygen saturation was in mid 70's on RA, and BP was 96/50. I gave the 4L oxygen via nasal cannula and O2 sats went up to 94%. DR. Leos was alerted to Pt status. IV fluid bolus and antibiotics were initiated and blood work initiated and then Pt was taken to OR @ 1345.
[2022-11-20] MEDS: BUPIVACAINE 0.5% (PF) 30 ML, EPINEPHrine 0.15 MG INJ (14:25)
--- NOTE | 2022-11-20 14:34 | SUR.OPER ---
Supine on padded OR bed, head on pillow, arms secured on padded arm boards at <90 degrees abduction, legs in frog like position with tape over them, gel pad under feet/ankle, safety belt at thigh.
[2022-11-20] MEDS: SODIUM HYPOCHLORITE 473 ML SOLUTION 60 ML TOP (15:00)
[2022-11-20] MEDS: fentaNYL 100 MCG/2 ML INJ IV (15:17)
--- NOTE | 2022-11-20 15:24 | P.OP_ITS ---
Operative Date/Time/Diagnoses Date of procedure: 11/20/22 Time of procedure: 15:24 Pre-op diagnosis: Left leg cellulitis Post-op diagnosis: other (Left lower extremity necrotizing soft tissue infection) Procedure & Clinicians Procedure: Debridement of left lower extremity necrotizing soft tissue infection Same procedure as scheduled: Yes Surgeon: Hossein Obrien Assistant Construction Superintendent: Lupillo Hill Anesthesia Type: General Operative Notes Procedure in detail: The patient was brought to the operating room and general anesthesia was induced. She was placed in frog-leg position and left thigh was prepped and draped in the usual fashion. A time-out was performed. We made a small incision in the left upper medial thigh the area of greatest induration. There was dirty dishwater fluid we started to excise more indurated tissue as we progressed distally. There appeared to be necrotic tissue along the fascia. We ended up excising about 15 cm x 10 cm of skin and subcutaneous adipose tissue. A few bleeders were either cauterized or tied off with 3-0 Vicryl. We then packed with Kerlix gauze soaked in Dakin solution followed by ABD pads. Lupillo ENCISO provided assistance with exposure, retraction and closure of incisions. EBL: 30 mL Post-operative Condition: stable Disposition: PACU
--- NOTE | 2022-11-20 15:37 | SUR.PHASEI ---
Report called to
[2022-11-20] MEDS: CEFEPIME 2 GM in SODIUM CHLORIDE 0.9% 100 ML IV (16:02)
--- NOTE | 2022-11-20 16:06 | SUR.PHASEI ---
Patient transferred to the floor on O2, by DENNIS Chirinos.
--- NOTE | 2022-11-20 16:11 | P.PN_ITS ---
Subjective Subjective Interval history: Patient still having alot of pain in her thigh and not feeling better. US soft tissue shows fluid collection with tracking to skin, plus gas concerning for nec fasc. Taken to OR emergently for washout. Exam Vital Signs (past 8 hours): - 11/20/22 13:15 11/20/22 13:50 11/20/22 15:06 Temperature 98.5 F 97.9 F 97.8 F Pulse Rate 85 85 104 H Respiratory Rate 15 16 17 Blood Pressure 96/50 L 107/65 134/80 Pulse Oximetry 94 92 99 Oxygen Delivery Method Nasal Cannula Simple Mask Oxygen Flow Rate 5 4 11/20/22 15:11 11/20/22 15:16 11/20/22 15:22 Temperature Pulse Rate 104 H 105 H 101 H Respiratory Rate 15 15 18 Blood Pressure 120/66 103/66 144/80 H Pulse Oximetry 99 97 92 Oxygen Delivery Method Room Air Room Air Room Air Oxygen Flow Rate 11/20/22 15:37 Temperature 97.9 F Pulse Rate 100 H Respiratory Rate 19 Blood Pressure 134/82 Pulse Oximetry 95 Oxygen Delivery Method Nasal Cannula Oxygen Flow Rate 2 Fraction of Inspired Oxygen 28 SaO2/FiO2 Ratio 342 Oxygen Delivery Method Nasal Cannula Oxygen Flow Rate 2 Const Other: laying in bed in no distress, morbidly obese HENMT Other: oral crowding Eyes Other: eomi Resp Other: decreased airflow b/l Cardio Other: RRR GI Other: obese abdomen Skin Other: large, 15 cm in diameter, swollen, tender, erythematous area on Lt upper, inner thigh. Swelling larger today. Neuro Other: w/o deficits Psych Other: appropriate mood and affect, lucid Objective Labs 11/20/22 01:42 11/20/22 01:42 Labs: Laboratory Results - last 24 hr 11/20/22 11/20/22 01:42 10:38 WBC 11.9 H RBC 4.29 Hgb 13.5 Hct 40.1 MCV 93.4 MCH 31.4 MCHC 33.6 RDW 14.9 H Plt Count 216 Neut % (Auto) 86.4 H Lymph % (Auto) 7.0 L [place] % (Auto) 5.6 Eos % (Auto) 0.8 L Baso % (Auto) 0.2 Neut # (Auto) 63938 H Lymph # (Auto) 800 L [place] # (Auto) 700 Eos # (Auto) 100 Baso # (Auto) 0 Sodium 133 L Potassium 3.6 Chloride 96 L Carbon Dioxide 31 BUN 20 H Creatinine 0.65 Estimated GFR > 60 BUN/Creatinine Ratio 30.8 H Glucose 158 H D Calcium 8.8 Urine Color [place] Urine Appearance Sl cloudy Urine pH 6.5 Ur Specific [place] 1.025 Urine Protein 2+ H Urine Glucose (UA) 1+ H Urine Ketones Trace H Urine Occult Blood Trace-intact Urine Nitrate Positive H Urine Bilirubin 3+ H Ur Bilirubin Confirm Positive H Urine Urobilinogen >=8.0 Ur Leukocyte Esterase 2+ H Urine RBC 0-1/hpf Urine WBC 10-30/hpf H Ur Squamous Epith Cells 10-30 /hpf H D Urine Bacteria Few (2-10) H Urine Yeast 1-5/hpf H Ur Culture Indicated? Specimen cultured Vancomycin Trough 11.3 PFSH Medical History Tobacco dependence PTSD (post-traumatic stress disorder) Asthma Fibromyalgia Diabetic neuropathy Uncontrolled diabetes mellitus Methamphetamine abuse Surgical History S/P section S/P jaren Social History household members: other Smoking Status: Current every day smoker alcohol intake: never Assessment & Plan Assessment and plan (1) Cellulitis and abscess of left leg: Status: Acute Plan: Empiric Vancomycin / Rocephin started in ED, added clinda for toxins Pain management with tylenol, NSAIDs, toradol, patient doesn't want narcotics due to Hx of substance abuse Gen surg taking to OR today for washout. (2) Skin candidiasis: Status: Acute Plan: groin, folds, nystatin (3) Uncontrolled diabetes mellitus: Status: Chronic Plan: Lantus 20 units BID, high dose SSI - A1C 12.3% (4) Diabetic neuropathy: Status: Chronic Plan: Gabapentin home dose (5) Asthma: Status: Chronic Plan: Pulmicort bid (at home on symbicort_, duoneb qid, albuterol nebs prn (6) Tobacco dependence: Status: Acute Plan: Nicotine patch prn (7) GERD (gastroesophageal reflux disease): Status: Acute Plan: PPI (8) Fibromyalgia: Status: Chronic (9) KEVAN (obstructive sleep apnea): Status: Acute Plan: Used to have CPAP but wasn't able to tolerate it Without home oxygen O2 NC to keep sats > 92 (10) Morbid obesity: Status: Acute (11) History of methamphetamine abuse: Status: Acute Plan: Utox negative, patient in clean and sober house for 1 year off meth Plan Dispo: Pending surgery course. Quality VTE Deep Vein Thrombosis/Pulmonary Embolism Present on Admission: No
[2022-11-20] MEDS: metroNIDAZOLE 500 MG/100 ML PIGGYBACK 100 MG IV (16:59)
[2022-11-20 17:05] LABS: Add Manual Diff / Slide Review NO; Basophils Absolute Auto 100 /uL (0-100); Basophils Percent Auto 0.6 % (0-2); Eosinophils Absolute Auto 0 /uL (0-450); Eosinophils Percent Auto 0.4 % (2-4); Hematocrit 40.6 % (36-46); Hemoglobin 13.6 g/dL (12.0-16.0); Lymphocytes Absolute Auto 800 /uL (1100-4500); Mean Corpuscular HGB Conc 33.6 % (30-36); Mean Corpuscular Hemoglobin 31.5 PG (26-34); Mean Corpuscular Volume 93.9 fL (80-100); Monocytes Absolute Auto 1000 /uL (0-900); Monocytes Percent Auto 7.7 % (3-14); Neutrophils Absolute Auto 11500 /uL (1500-7000); Neutrophils Percent Auto 85.3 % (50-75); Platelet Count 218 X10^3/uL (150-400); Red Blood Cell Count 4.32 X10^6/uL (4.0-5.2); White Blood Cell Count 13.5 X10^3/uL (4.5-11.0)
[2022-11-20 17:13] LABS: Alanine Aminotransferase 60 IU/L (<35); Albumin 3.4 g/dL (3.5-5.0); Alkaline Phosphatase 580 U/L (38-126); Aspartate Aminotransferase 52 IU/L (14-36); BUN Creatinine Ratio 25.3 (6-22); Bilirubin Total 3.5 mg/dL (0.2-1.3); Blood Urea Nitrogen 23 mg/dL (7-17); Calcium 8.8 mg/dL (8.4-10.2); Carbon Dioxide 27 mmol/L (22-32); Chloride 96 mmol/L (98-107); Estimated Glomerular Filt Rate > 60 mL/min (>60); Globulin 3.5 g/dL (1.7-4.1); Glucose 158 mg/dL (70-100); HEMOLYSIS 35 (0-50); Potassium 3.8 mmol/L (3.4-5.1); Sodium 133 mmol/L (137-145); Total Protein 6.9 g/dL (6.3-8.2)
[2022-11-20 17:14] LABS: Lactate (Lactic Acid) 1.6 mmol/L (0.7-2.1)
[2022-11-20 17:29] LABS: Procalcitonin 0.43 ng/mL (<0.5)
[2022-11-20] MEDS: CLINDAMYCIN 900 MG in SODIUM CHLORIDE 0.9% 100 ML 106 MG IV (18:12)
[2022-11-20] MEDS: HYDROMORPHONE 0.5 MG INJ IV (22:05)
[2022-11-21] VITALS (13 sets, daily range): BP systolic 102–126; BP diastolic 43–69; PULSE 68–81; RESP 12–68; TEMP 35.8–36.6; O2SAT 4–100
[2022-11-21] MEDS: metroNIDAZOLE 500 MG/100 ML PIGGYBACK 100 MG IV ×2 (00:32→08:42)
[2022-11-21] MEDS: KETOROLAC 30 MG/ML VIAL IV ×2 (00:32→05:35)
[2022-11-21] MEDS: VANCOMYCIN 1,500 MG/300 ML PIGGYBACK 200 MG IV ×3 (01:49→15:45)
[2022-11-21] MEDS: CLINDAMYCIN 900 MG/50 ML PIGGYBACK 50 MG IV ×3 (01:53→18:24)
[2022-11-21] MEDS: CEFEPIME 2 GM in SODIUM CHLORIDE 0.9% 100 ML IV (04:37)
[2022-11-21] MEDS: HYDROMORPHONE 0.5 MG INJ IV ×4 (05:35→21:28)
[2022-11-21] MEDS: ONDANSETRON 4 MG/2 ML INJ IV ×2 (05:35→14:28)
[2022-11-21 05:45] LABS: Add Manual Diff / Slide Review NO; Basophils Absolute Auto 0 /uL (0-100); Basophils Percent Auto 0.3 % (0-2); Eosinophils Absolute Auto 0 /uL (0-450); Eosinophils Percent Auto 0.4 % (2-4); Hematocrit 36.7 % (36-46); Hemoglobin 12.4 g/dL (12.0-16.0); Lymphocytes Absolute Auto 700 /uL (1100-4500); Mean Corpuscular HGB Conc 33.7 % (30-36); Mean Corpuscular Hemoglobin 31.7 PG (26-34); Monocytes Absolute Auto 700 /uL (0-900); Neutrophils Absolute Auto 10000 /uL (1500-7000); Neutrophils Percent Auto 87.3 % (50-75); Platelet Count 205 X10^3/uL (150-400); Red Blood Cell Count 3.91 X10^6/uL (4.0-5.2); Red Cell Distribution Width 14.9 % (11.6-14.8); White Blood Cell Count 11.4 X10^3/uL (4.5-11.0)
[2022-11-21 06:37] LABS: BUN Creatinine Ratio 23.5 (6-22); Blood Urea Nitrogen 28 mg/dL (7-17); Calcium 8.6 mg/dL (8.4-10.2); Carbon Dioxide 25 mmol/L (22-32); Chloride 98 mmol/L (98-107); Estimated Glomerular Filt Rate 54 mL/min (>60); Glucose 189 mg/dL (70-100); HEMOLYSIS < 15 (0-50); Potassium 3.6 mmol/L (3.4-5.1); Sodium 131 mmol/L (137-145)
[2022-11-21] MEDS: PANTOPRAZOLE DR 20 MG TABLET PO (08:42)
[2022-11-21] MEDS: SODIUM CHLORIDE 0.9% 1,000 ML 100 ML IV (08:43)
[2022-11-21] MEDS: INSULIN GLARGINE 100 UNIT/ML 3ML PEN 20 UNIT SUBCUT ×2 (08:44→21:44)
--- NOTE | 2022-11-21 10:55 | CM.DPC ---
DCP Cont. Reviewed EMR and team rounds for status updates. Pt was taken to the OR yesterday for incision/drainage of the abcess/cellulitis of her left upper thigh. Consulted w/RN. Pt will be taken back to to OR again today for another procedure. Plan is to continue IV ABO's, no discussion of d/c plans are being made at this time. Cont. to monitor.
[2022-11-21] MEDS: ONDANSETRON 4 MG ODT SL ×2 (13:04→21:28)
--- NOTE | 2022-11-21 13:46 | P.PN_ITS ---
Subjective Subjective Date Patient Seen: 11/21/22 Time Patient Seen: 13:47 Interval history: Today Mirta is complaining only of left leg pain and the food. A Hartmann catheter was placed last night so she did not have to get up to void. Exam Vital Signs (past 8 hours): - 11/21/22 07:31 11/21/22 08:00 11/21/22 08:00 Temperature 97.8 F Pulse Rate 81 73 Respiratory Rate 18 Blood Pressure 102/58 L Pulse Oximetry 92 97 Oxygen Delivery Method Nasal Cannula Nasal Cannula Oxygen Flow Rate 2 Fraction of Inspired Oxygen 28 Fraction of Inspired Oxygen 28 SaO2/FiO2 Ratio 328 Oxygen Delivery Method Nasal Cannula Oxygen Flow Rate 2 Narrative Exam Narrative: Decreased erythema of the left leg with dressings remaining in place from the OR yesterday Objective Labs 11/21/22 05:33 11/21/22 05:33 Labs: Laboratory Results - last 24 hr 11/20/22 11/21/22 16:55 05:33 WBC 13.5 H 11.4 H RBC 4.32 3.91 L Hgb 13.6 12.4 Hct 40.6 36.7 MCV 93.9 94.0 MCH 31.5 31.7 MCHC 33.6 33.7 RDW 15.0 H 14.9 H Plt Count 218 205 Neut % (Auto) 85.3 H 87.3 H Lymph % (Auto) 6.0 L 6.0 L [place] % (Auto) 7.7 6.0 Eos % (Auto) 0.4 L 0.4 L Baso % (Auto) 0.6 0.3 Neut # (Auto) 70909 H 28122 H Lymph # (Auto) 800 L 700 L [place] # (Auto) 1000 H 700 Eos # (Auto) 0 0 Baso # (Auto) 100 0 Sodium 133 L 131 L Potassium 3.8 3.6 Chloride 96 L 98 Carbon Dioxide 27 25 BUN 23 H 28 H Creatinine 0.91 1.19 H Estimated GFR > 60 54 L BUN/Creatinine Ratio 25.3 H 23.5 H Glucose 158 H 189 H Lactate 1.6 Calcium 8.8 8.6 Total Bilirubin 3.5 H AST 52 H ALT 60 H Alkaline Phosphatase 580 H D Total Protein 6.9 Albumin 3.4 L Globulin 3.5 Albumin/Globulin Ratio 1.0 Procalcitonin 0.43 PFSH Medical History Tobacco dependence PTSD (post-traumatic stress disorder) Asthma Fibromyalgia Diabetic neuropathy Uncontrolled diabetes mellitus Methamphetamine abuse Surgical History S/P section S/P jaren Social History household members: other Smoking Status: Current every day smoker alcohol intake: never Assessment & Plan Assessment and plan (1) Necrotizing soft tissue infection: Status: Acute Plan 56-year-old woman with necrotizing soft tissue infection of the left leg status post debridement in the OR yesterday. Plan is to return to the OR today for a second look and potentially to place a wound VAC if the wound looks healthy. Then she could potentially go 2-3 days before going back to the OR. Quality VTE Deep Vein Thrombosis/Pulmonary Embolism Present on Admission: No
--- NOTE | 2022-11-21 15:15 | P.PN_ITS ---
Subjective Subjective Interval history: Patient awaiting going back to OR for continued washout. She really wants a cigarette. Exam Vital Signs (past 8 hours): - 11/21/22 07:31 11/21/22 08:00 11/21/22 08:00 Temperature 97.8 F Pulse Rate 81 73 Respiratory Rate 18 Blood Pressure 102/58 L Pulse Oximetry 92 97 Oxygen Delivery Method Nasal Cannula Nasal Cannula Oxygen Flow Rate 2 Fraction of Inspired Oxygen 28 11/21/22 14:10 Temperature 97.5 F L Pulse Rate 74 Respiratory Rate 18 Blood Pressure 106/59 L Pulse Oximetry 96 Oxygen Delivery Method Oxygen Flow Rate 2 Fraction of Inspired Oxygen Fraction of Inspired Oxygen 28 SaO2/FiO2 Ratio 328 Oxygen Delivery Method Nasal Cannula Oxygen Flow Rate 2 Const Other: laying in bed in no distress, morbidly obese HENMT Other: oral crowding Eyes Other: eomi Resp Other: decreased airflow b/l Cardio Other: RRR GI Other: obese abdomen Skin Other: cellulitis and nec fasc to L medial thigh has dressing in place from washout Neuro Other: w/o deficits Psych Other: appropriate mood and affect, lucid Objective Labs 11/21/22 05:33 11/21/22 05:33 Labs: Laboratory Results - last 24 hr 11/20/22 11/21/22 16:55 05:33 WBC 13.5 H 11.4 H RBC 4.32 3.91 L Hgb 13.6 12.4 Hct 40.6 36.7 MCV 93.9 94.0 MCH 31.5 31.7 MCHC 33.6 33.7 RDW 15.0 H 14.9 H Plt Count 218 205 Neut % (Auto) 85.3 H 87.3 H Lymph % (Auto) 6.0 L 6.0 L [place] % (Auto) 7.7 6.0 Eos % (Auto) 0.4 L 0.4 L Baso % (Auto) 0.6 0.3 Neut # (Auto) 64192 H 03615 H Lymph # (Auto) 800 L 700 L [place] # (Auto) 1000 H 700 Eos # (Auto) 0 0 Baso # (Auto) 100 0 Sodium 133 L 131 L Potassium 3.8 3.6 Chloride 96 L 98 Carbon Dioxide 27 25 BUN 23 H 28 H Creatinine 0.91 1.19 H Estimated GFR > 60 54 L BUN/Creatinine Ratio 25.3 H 23.5 H Glucose 158 H 189 H Lactate 1.6 Calcium 8.8 8.6 Total Bilirubin 3.5 H AST 52 H ALT 60 H Alkaline Phosphatase 580 H D Total Protein 6.9 Albumin 3.4 L Globulin 3.5 Albumin/Globulin Ratio 1.0 Procalcitonin 0.43 PFSH Medical History Tobacco dependence PTSD (post-traumatic stress disorder) Asthma Fibromyalgia Diabetic neuropathy Uncontrolled diabetes mellitus Methamphetamine abuse Surgical History S/P section S/P jaren Social History household members: other Smoking Status: Current every day smoker alcohol intake: never Assessment & Plan Assessment and plan (1) Necrotizing soft tissue infection: Status: Acute Plan: Empiric Vancomycin / cefepime / flagyl, added clinda for toxins Pain management with tylenol, NSAIDs, toradol, patient doesn't want narcotics due to Hx of substance abuse Gen surg took for washout on 11/20 with carbonation equipment tender fluid and necrotic tissue to fascia present going back to OR 11/22 for repeat washout and possible wound vac placement (2) Skin candidiasis: Status: Acute Plan: groin, folds, nystatin (3) Uncontrolled diabetes mellitus: Status: Chronic Plan: Lantus 20 units BID, high dose SSI - A1C 12.3% (4) Diabetic neuropathy: Status: Chronic Plan: Gabapentin home dose (5) Asthma: Status: Chronic Plan: Pulmicort bid (at home on symbicort_, duoneb qid, albuterol nebs prn (6) Tobacco dependence: Status: Acute Plan: Nicotine patch prn (7) GERD (gastroesophageal reflux disease): Status: Acute Plan: PPI (8) Fibromyalgia: Status: Chronic (9) KEVAN (obstructive sleep apnea): Status: Acute Plan: Used to have CPAP but wasn't able to tolerate it Without home oxygen O2 NC to keep sats > 92 (10) Morbid obesity: Status: Acute (11) History of methamphetamine abuse: Status: Acute Plan: Utox negative, patient in clean and sober house for 1 year off meth Plan Dispo: Several days. Quality VTE Deep Vein Thrombosis/Pulmonary Embolism Present on Admission: No
--- NOTE | 2022-11-21 15:39 | SUR.OPER ---
Supine on padded OR bed, head on pillow, arms secured on padded arm boards at <90 degrees abduction, legs uncrossed, safety belt at thigh, tape over blanket over lower legs.Legs frog legged
[2022-11-21] MEDS: BUPIVACAINE 0.5% (PF) 30 ML, EPINEPHrine 0.15 MG INJ (15:45)
--- NOTE | 2022-11-21 16:00 | PATH_ITS ---
[facility] Accession Number: [id number] No. of containers..01 Tissue . 01 Material submitted: . leg - LEFT LEG . 01 Diagnosis: Left Leg, Excision: Dermal and subcutaneous acute and chronic inflammation with microabscess formation and red blood cell extravasation. . Note: Clinicopathiological correlation is advised for definitive diagnosis. Tissue cultures may be of help if infection is a clinical concern. OIT 11/27/2022 1512 Local . 01 Comment: The histologic material was reviewed with Dr. Frank Romero, who concurs. . 01 Electronically signed: . Chasidy Pressley MD, Dermatopathologist NPI- [id number] . 01 Gross description: . The specimen is received in formalin labeled with the patient's name, , and left leg tissue, consists of an unoriented ellipse of skin measuring 7.2 x 4.1 cm and excised to a depth of 2.5 cm. The margin is inked blue. Sectioning reveals mottled yellow to brown, lobulated soft tissue with no discrete lesions identified. Supervisor Dry Cell Assembly sections are submitted in cassettes A1-A3. ([id number]) /MRV 11/23/2022 1240 Local . 01 Pathologist provided ICD-10: L98.9 . 01 CPT . 355515 Specimen Comment: A courtesy copy of this report has been sent to [phone] Performed at: 01 [facility] [address] [place] [address], [place], [place] [id number] MD Bernabe Mendoza MD Phone: [phone]
--- NOTE | 2022-11-21 16:55 | PM.OP.1 ---
Operative Date/Time/Diagnoses Date of procedure: 11/21/22 Time of procedure: 16:56 Pre-op diagnosis: Left leg necrotizing soft tissue infection Post-op diagnosis: same Procedure & Clinicians Procedure: Debridement of left leg necrotizing soft tissue infection Application of negative pressure therapy device Same procedure as scheduled: Yes Surgeon: Hossein Obrien Anesthesia Type: General Operative Notes Procedure in detail: The patient was brought to the operating room and general LMA anesthesia was induced. She was placed in frog-leg position. The existing dressings were removed and the wound was irrigated. Some devitalized fascia was sharply excised until we saw bleeding tissue. There was also more necrotic tissue in the posterior and inferior quadrant of the wound so additional skin and subcutaneous adipose tissue was resected. We did come across the saphenous vein which was tied off. The wound now measured 16 cm x 9 cm x 4 cm. A wound VAC was applied and connected to suction with good seal. EBL: 50 mL Post-operative Condition: stable Disposition: PACU
[2022-11-21] MEDS: LACTATED RINGERS 1,000 ML 42 ML IV (17:07)
[2022-11-21] MEDS: NYSTATIN POWDER 15GM 1 APPLIC TOP (21:44)
[2022-11-22] VITALS (16 sets, daily range): BP systolic 100–133; BP diastolic 51–81; PULSE 68–78; RESP 10–19; TEMP 35.7–36.9; O2SAT 92–100; BMI 45.9
[2022-11-22] MEDS: KETOROLAC 30 MG/ML VIAL IV ×3 (00:52→13:57)
[2022-11-22] MEDS: metroNIDAZOLE 500 MG/100 ML PIGGYBACK 100 MG IV ×3 (00:54→20:59)
[2022-11-22] MEDS: CLINDAMYCIN 900 MG/50 ML PIGGYBACK 50 MG IV ×3 (02:35→22:25)
[2022-11-22] MEDS: CEFEPIME 2 GM in SODIUM CHLORIDE 0.9% 100 ML IV ×2 (05:00→20:18)
--- NOTE | 2022-11-22 05:19 | PC.NURSE ---
At approx 0300, this RN was notified of wound vac alarming leak in seal. With professor of nursing, attempted to seal any potential leaks, but was however unsuccessful. Output was less than 100 mL. Patient in intense discomfort while attempting to re-seal. Provider refrigeration manager informed, told to turn off the wound vac until ordering provider comes in to review. Patient informed of new development in plan of care.
[2022-11-22 06:50] LABS: Add Manual Diff / Slide Review NO; Basophils Absolute Auto 100 /uL (0-100); Basophils Percent Auto 0.5 % (0-2); Eosinophils Absolute Auto 100 /uL (0-450); Eosinophils Percent Auto 1.1 % (2-4); Hematocrit 39.2 % (36-46); Hemoglobin 13.3 g/dL (12.0-16.0); Lymphocytes Absolute Auto 800 /uL (1100-4500); Lymphocytes Percent Auto 7.7 % (25-40); Mean Corpuscular HGB Conc 33.8 % (30-36); Mean Corpuscular Hemoglobin 31.4 PG (26-34); Monocytes Absolute Auto 500 /uL (0-900); Monocytes Percent Auto 5.2 % (3-14); Neutrophils Absolute Auto 8800 /uL (1500-7000); Neutrophils Percent Auto 85.5 % (50-75); Platelet Count 228 X10^3/uL (150-400); Red Blood Cell Count 4.22 X10^6/uL (4.0-5.2); Red Cell Distribution Width 15.4 % (11.6-14.8); White Blood Cell Count 10.3 X10^3/uL (4.5-11.0)
[2022-11-22 07:06] LABS: BUN Creatinine Ratio 29.9 (6-22); Blood Urea Nitrogen 32 mg/dL (7-17); Calcium 8.4 mg/dL (8.4-10.2); Carbon Dioxide 26 mmol/L (22-32); Chloride 101 mmol/L (98-107); Estimated Glomerular Filt Rate > 60 mL/min (>60); Glucose 132 mg/dL (70-100); HEMOLYSIS < 15 (0-50); Potassium 3.6 mmol/L (3.4-5.1); Sodium 134 mmol/L (137-145)
[2022-11-22] MEDS: PANTOPRAZOLE DR 20 MG TABLET PO (08:32)
[2022-11-22] MEDS: INSULIN GLARGINE 100 UNIT/ML 3ML PEN 20 UNIT SUBCUT ×2 (08:58→20:31)
[2022-11-22] MEDS: NYSTATIN POWDER 15GM 1 APPLIC TOP ×2 (08:59→20:35)
[2022-11-22] MEDS: HYDROMORPHONE 0.5 MG INJ IV (13:56)
[2022-11-22] MEDS: ONDANSETRON 4 MG/2 ML INJ IV ×2 (14:15→15:38)
--- NOTE | 2022-11-22 14:53 | P.OP.PRE_ITS ---
Pre-operative Note COVID-19 COVID-19 status: Not tested Interval Note History & Physical reviewed/Exam performed by Physician: Yes Changes to H&P: No H&P completed within 30 days and has changed as indicated here:: Return to OR t alex for a third look and wound vac change ASA Class (for procedural sedation): IV
--- NOTE | 2022-11-22 15:42 | PC.NURSE ---
Day shift: Notified MD Mathew that lab was unable to draw blood for vanco trough x2. ok'ed giving next vanco dose without trough being drawn. Then PIV site became compromised - painful and leaking. Notified MD Mathew who ordered midline. LADLE PULLER Taran here to take pt to OR at 1450 - he stated he would try and see if someone could put midline in downstairs or he would start IV. Patient off floor at 1455.
--- NOTE | 2022-11-22 16:35 | SUR.OPER ---
Left leg in yellow fin stirup, right leg straight. Arms bilaterally secured on padded armboards less than 90*. Pillow under head. Safety belt over torso.
--- NOTE | 2022-11-22 16:45 | PM.PN.1 ---
Subjective Subjective Interval history: Patient awaiting going back to OR for continued washout today, may need further debridements next week per surgery. Exam Vital Signs (past 8 hours): - 11/22/22 09:09 11/22/22 11:00 11/22/22 15:14 Temperature 97.1 F L 97.9 F Pulse Rate 72 70 Respiratory Rate 18 16 Blood Pressure 111/61 133/81 Pulse Oximetry 100 94 96 Oxygen Delivery Method Nasal Cannula Room Air Oxygen Flow Rate 3 0 Fraction of Inspired Oxygen 32 Fraction of Inspired Oxygen 32 SaO2/FiO2 Ratio 312 Oxygen Delivery Method Room Air Oxygen Flow Rate 0 Const Other: laying in bed in no distress, morbidly obese Objective Labs 11/22/22 06:08 11/22/22 06:08 Labs: Laboratory Results - last 24 hr 11/22/22 06:08 WBC 10.3 RBC 4.22 Hgb 13.3 Hct 39.2 MCV 93.0 MCH 31.4 MCHC 33.8 RDW 15.4 H Plt Count 228 Neut % (Auto) 85.5 H Lymph % (Auto) 7.7 L [place] % (Auto) 5.2 Eos % (Auto) 1.1 L Baso % (Auto) 0.5 Neut # (Auto) 8800 H Lymph # (Auto) 800 L [place] # (Auto) 500 Eos # (Auto) 100 Baso # (Auto) 100 Sodium 134 L Potassium 3.6 Chloride 101 Carbon Dioxide 26 BUN 32 H Creatinine 1.07 H Estimated GFR > 60 BUN/Creatinine Ratio 29.9 H Glucose 132 H Calcium 8.4 PFSH Medical History Tobacco dependence PTSD (post-traumatic stress disorder) Asthma Fibromyalgia Diabetic neuropathy Uncontrolled diabetes mellitus Methamphetamine abuse Surgical History S/P section S/P jaren Social History household members: other Smoking Status: Current every day smoker alcohol intake: never Assessment & Plan Assessment and plan (1) Necrotizing soft tissue infection: Status: Acute Plan: Empiric Vancomycin / cefepime / flagyl, added clinda for toxins Pain management with tylenol, NSAIDs, toradol, patient doesn't want narcotics due to Hx of substance abuse Gen surg took for washout on 11/20 with mechanical applications engineer fluid and necrotic tissue to fascia present going back to OR today, 11/22 for repeat washout and possible wound vac placement. May need continued debridements. (2) Skin candidiasis: Status: Acute Plan: groin, folds, nystatin (3) Uncontrolled diabetes mellitus: Status: Chronic Plan: Lantus 20 units BID, high dose SSI - A1C 12.3% -glucoses controlled today, but with advancement of diet may need further adjustments. (4) Diabetic neuropathy: Status: Chronic Plan: Gabapentin home dose (5) Asthma: Status: Chronic Plan: Pulmicort bid (at home on symbicort_, duoneb qid, albuterol nebs prn (6) Tobacco dependence: Status: Acute Plan: Nicotine patch prn (7) GERD (gastroesophageal reflux disease): Status: Acute Plan: PPI (8) Fibromyalgia: Status: Chronic (9) KEVAN (obstructive sleep apnea): Status: Acute Plan: Used to have CPAP but wasn't able to tolerate it Without home oxygen O2 NC to keep sats > 92 (10) Morbid obesity: Status: Acute (11) History of methamphetamine abuse: Status: Acute Plan: Utox negative, patient in clean and sober house for 1 year off meth Plan Dispo: Several days. Assessment & Plan narrative: Code: Full Dispo: likely home once improved and stable from surgical standpoint. Quality VTE Deep Vein Thrombosis/Pulmonary Embolism Present on Admission: No
[2022-11-22] MEDS: hydrOXYzine 50 MG/ML INJ 25 MG IM (17:26)
[2022-11-22] MEDS: HYDROMORPHONE 1 MG INJ IV ×2 (17:26→17:31)
--- NOTE | 2022-11-22 18:07 | PM.OP.1 ---
Operative Date/Time/Diagnoses Date of procedure: 11/22/22 Time of procedure: 18:07 Pre-op diagnosis: Left leg necrotizing soft tissue infection Post-op diagnosis: same Procedure & Clinicians Procedure: Exploration and dressing change of left leg necrotizing soft tissue infection Same procedure as scheduled: Yes Surgeon: Hossein Obrien Anesthesia Type: General Operative Notes Procedure in detail: The patient was brought to the operating room and placed on the table in the supine position. General LMA anesthesia was induced. The left leg was elevated in a stirrup. The wound VAC was removed. The left leg and the wound were prepped with Betadine and draped and a time-out was performed. First we irrigated the wound with saline. Some devitalized fascia was sharply debrided from the wound base. There was good bleeding throughout the wound. An additional 4 x 5 cm section of skin and subcutaneous adipose tissue was excised from the inferior portion of the wound. There was good bleeding throughout the tissue which was controlled with cautery and an occasional 3-0 Vicryl stitch. We repacked the wound with Dakin solution soaked Kerlix gauze and covered it with dry gauze and ABD pads. The patient was awakened and brought to recovery in stable condition. EBL: 30 mL Post-operative Condition: stable Disposition: PACU
[2022-11-22] MEDS: VANCOMYCIN 1,500 MG/300 ML PIGGYBACK 200 MG IV (18:20)
--- NOTE | 2022-11-22 18:50 | P.EN_ITS ---
Event Note Date Patient Seen: 11/22/22 Time Patient Seen: 18:50 Event Note (Rapid Response, Code, or fall): Spoke to the on-call surgeon at [facility] who recommended linezolid and Zosyn. They will be able to accept her once they have a floor bed available. In the meantime he recommended returning to the OR for wound checks until it is clear that the wound is not progressing any further. Once the wound looks clean 2 days in a row we can start using the wound VAC again.
[2022-11-22] MEDS: LINEZOLID 600 MG/300 ML IV.SOLN IV (19:11)
[2022-11-23] MEDS: HYDROMORPHONE 0.5 MG INJ IV ×3 (00:13→16:21)
[2022-11-23] MEDS: ONDANSETRON 4 MG/2 ML INJ IV ×2 (00:18→11:31)
[2022-11-23 04:00] VITALS: BP 102/59; PULSE 74; RESP 18; TEMP 36.1; O2SAT 95
[2022-11-23] MEDS: CEFEPIME 2 GM in SODIUM CHLORIDE 0.9% 100 ML IV ×2 (04:09→11:28)
[2022-11-23] MEDS: KETOROLAC 30 MG/ML VIAL IV (04:35)
[2022-11-23] MEDS: metroNIDAZOLE 500 MG/100 ML PIGGYBACK 100 MG IV ×2 (04:36→12:18)
[2022-11-23] MEDS: CLINDAMYCIN 900 MG/50 ML PIGGYBACK 50 MG IV ×2 (05:53→14:02)
[2022-11-23 06:48] LABS: Add Manual Diff / Slide Review NO; Basophils Absolute Auto 0 /uL (0-100); Basophils Percent Auto 0.2 % (0-2); Eosinophils Absolute Auto 100 /uL (0-450); Eosinophils Percent Auto 1.3 % (2-4); Hematocrit 35.7 % (36-46); Lymphocytes Absolute Auto 700 /uL (1100-4500); Mean Corpuscular HGB Conc 33.6 % (30-36); Mean Corpuscular Hemoglobin 31.3 PG (26-34); Monocytes Absolute Auto 400 /uL (0-900); Monocytes Percent Auto 4.5 % (3-14); Neutrophils Absolute Auto 7400 /uL (1500-7000); Platelet Count 267 X10^3/uL (150-400); Red Blood Cell Count 3.84 X10^6/uL (4.0-5.2); Red Cell Distribution Width 15.1 % (11.6-14.8); White Blood Cell Count 8.7 X10^3/uL (4.5-11.0)
[2022-11-23 07:28] LABS: BUN Creatinine Ratio 35.6 (6-22); Blood Urea Nitrogen 32 mg/dL (7-17); Calcium 8.3 mg/dL (8.4-10.2); Carbon Dioxide 28 mmol/L (22-32); Chloride 103 mmol/L (98-107); Estimated Glomerular Filt Rate > 60 mL/min (>60); Glucose 104 mg/dL (70-100); Potassium 3.7 mmol/L (3.4-5.1); Sodium 135 mmol/L (137-145)
[2022-11-23 07:30] VITALS: BP 121/67; PULSE 73; RESP 20; TEMP 36.4; O2SAT 100
[2022-11-23 07:32] LABS: HEMOLYSIS 56 (0-50)
[2022-11-23 07:45] VITALS: O2SAT 99
[2022-11-23] MEDS: LINEZOLID 600 MG/300 ML IV.SOLN IV (08:45)
[2022-11-23] MEDS: NYSTATIN POWDER 15GM 1 APPLIC TOP (08:46)
--- NOTE | 2022-11-23 09:05 | PC.NURSE ---
Addendum entered by Andie Diaz R.N. 11/23/22 17:53: Patient down to [facility] and report called. Addendum entered by Andie Diaz R.N. 11/23/22 12:07: Patient is snappy with staff. She is argumentative at times if something does not go her way. She is however compliant with care. She wants help moving in bed but is totally independent and can move on her own. Dressing to l.inner thigh cdi with some old spots of drainage. Waiting to see when they will take patient to surgery and will then change her bedding. Given iv dilaudid and zofran and she is comfortable. Original Note: Pt is soundly sleeping on her back. Dressing to L.upper/inner thigh is cdi, patient is npo as she may go back to the OR for a wash out to her wound. Her blood sugar this morning is 104. Patient does not need any ss insulin and her glargine will be held as she is npo. Blood sugar is wnl at this time.
[2022-11-23 13:31] VITALS: BP 102/54; PULSE 74; RESP 18; O2SAT 91
--- NOTE | 2022-11-23 13:34 | CM.DPNOTE ---
DCP Note Patient with diagnosis of Necrotizing soft tissue infection, transfer being attempted to [facility] which have accepted patient once a bed is available. Patient will return to the OR for wound checks. CM team will plan to follow closely. NUZHAT
[2022-11-23 14:40] LABS: COVID19 -Nasal RAPID Negative (Negative)
--- NOTE | 2022-11-23 16:08 | P.DS_ITS ---
History of Present Illness History of Present Illness Date Patient Seen: 11/23/22 Time Patient Seen: 11:00 Chief complaint: bitten by brown recluse/swelling lt leg groin area Narrative: Per admitting provider, 56 y/o, morbidly obese diabetic, presented to ED 5 days after she was bitten by a spider with cellulitis of Lt upper, inner thigh and likely developing abscess. The infected area is 15 cm in diameter, very tender to touch. No fever or chills at home. Pain gradually increased so much that she decided to come to ED. With PMH of substance use she is reluctant to use narcotics for pain. Discharge Providers Provider Date of admission: 11/18/22 17:20 Discharge Date: 11/23/22 Consults: 11/18/22 17:25 Consult to General Surgery Routine Comment: Consulting Provider: Hossein Obrien Reason for consultation: thigh abscess 11/18/22 20:16 Consult to [facility] - Inside Barrel Lathe Operator Routine Comment: lives in [facility] and says she may be kicked o Discharge provider: Ryan Mathew DO Summary Hospital Course Discharge Diagnosis: (1) Sepsis secondary to Necrotizing soft tissue infection with hypotension and TEMI. (2) Skin candidiasis: (3) Uncontrolled diabetes mellitus: (4) Diabetic neuropathy: (5) Asthma: (6) Tobacco dependence: (7) GERD (gastroesophageal reflux disease): (8) Fibromyalgia: (9) KEVAN (obstructive sleep apnea): (10) Morbid obesity: (11) History of methamphetamine abuse: 12. TEMI Hospital Course: 56 F with PMH of obesity, KEVAN, fibromyalgia, DM (a1c 12.3%) who presented with left leg cellulitis on 11/18. She has a remove history of drug use and urine tox screen was negative this admission. There was gas on initial CT imaging, surgery was consulted and recommended medical management initially. She was started on vanco, cefepime, clinda, and flagyl empirically per admitting provider. Patient worsened with worsening pain, hypotension, and TEMI and was taken to the OR on 11/20 where necrotizing infection was noted. She returned on 11/22 for repeat washout with continued worsening per the surgeon. General surgeon here discussed with personal loan specialist surgeon at [facility] and was accepted for transfer for higher level of care. Linezolid was added by the surgeon here, so hospitalist team discontinued vancomycin. Current antibiotics remain cefepime 2g q8 hr, clinamycin 900 q8, metronidazole 500 mg q8, and linezolid 600 mg q12. Her sugars have been controlled around the 100s with 20 U of lantus BID and sliding scale, though she has not eaten much due to continued NPO status for frequent plans for washouts. COVID testing was negative. She did develop TEMI on 11/21, and remains on IV fluids with continued improvement in creatinine at 0.9 today. At accepting facility recommend consultation with medicine and infectious disease teams for concurrent management of diabetes and necrotizing soft tissue infection. Time Spent with Patient Time spent: Greater than 30 minutes Exam Vital Signs (past 8 hours): - 11/23/22 08:56 11/23/22 13:31 Pulse Rate 74 Respiratory Rate 18 Blood Pressure 102/54 L Pulse Oximetry 91 Oxygen Delivery Method Nasal Cannula Oxygen Flow Rate 2 0 Fraction of Inspired Oxygen 32 SaO2/FiO2 Ratio 312 Oxygen Delivery Method Nasal Cannula Oxygen Flow Rate 0 Const Other: laying in bed in no distress, but tearful and fatigued CV RRR no m/r/g Pulm: diminished breath sound bilateral lung bases, poor effort Abd; S NT ND Ext: L leg bandage not removed, continued serosanguinous draingae. Objective Labs 11/23/22 06:30 11/23/22 06:30 Labs: Laboratory Results - last 24 hr 11/23/22 11/23/22 06:30 13:52 WBC 8.7 RBC 3.84 L Hgb 12.0 Hct 35.7 L MCV 93.0 MCH 31.3 MCHC 33.6 RDW 15.1 H Plt Count 267 Neut % (Auto) 86.0 H Lymph % (Auto) 8.0 L [place] % (Auto) 4.5 Eos % (Auto) 1.3 L Baso % (Auto) 0.2 Neut # (Auto) 7400 H Lymph # (Auto) 700 L [place] # (Auto) 400 Eos # (Auto) 100 Baso # (Auto) 0 Sodium 135 L Potassium 3.7 Chloride 103 Carbon Dioxide 28 BUN 32 H Creatinine 0.90 Estimated GFR > 60 BUN/Creatinine Ratio 35.6 H Glucose 104 H Calcium 8.3 L SARS-CoV-2 (PCR) Negative [facility] Medical History Tobacco dependence PTSD (post-traumatic stress disorder) Asthma Fibromyalgia Diabetic neuropathy Uncontrolled diabetes mellitus Methamphetamine abuse Surgical History S/P section S/P jaren Social History household members: other Smoking Status: Current every day smoker alcohol intake: never Discharge Plan Discharge Plan Patient Disposition: [facility] Discharge Health Status Precautions: [place] Diet/Activity/Treatments Diet: Diet as Tolerated Liquid consistency: Normal/Thin Food texture: Regular Quality VTE Deep Vein Thrombosis/Pulmonary Embolism Present on Admission: No
== END 2022-11-23 17:15 | disposition short-term general hospital (02) | DRG 383 ==
LOC: ED 12:31 → AC 17:21
PROVIDERS: Internal Medicine; Surgery; Admitting Provider Student in an Organized Health Care Education/Training Program; Emergency Provider Emergency Medicine; Referring Provider Emergency Medicine; Visit Provider Student in an Organized Health Care Education/Training Program
PROC: 0JBM0ZZ Excision of Left Upper Leg Subcutaneous Tissue and Fascia, Open Approach (ICD-10-PCS; principal; 2022-11-20 17:15)
DX: L03.116 Cellulitis of left lower limb (principal); L02.416 Cutaneous abscess of left lower limb; E66.01 Morbid (severe) obesity due to excess calories; A41.9 Sepsis, unspecified organism; B37.2 Candidiasis of skin and nail; E11.40 Type 2 diabetes mellitus with diabetic neuropathy, unspecified; J45.909 Unspecified asthma, uncomplicated; K21.9 Gastro-esophageal reflux disease without esophagitis; G47.33 Obstructive sleep apnea (adult) (pediatric); E11.65 Type 2 diabetes mellitus with hyperglycemia; E11.52 Type 2 diabetes mellitus with diabetic peripheral angiopathy with gangrene; A48.0 Gas gangrene; N17.9 Acute kidney failure, unspecified; R65.20 Severe sepsis without septic shock; F17.210 Nicotine dependence, cigarettes, uncomplicated; Z11.52 Encounter for screening for COVID-19; Z68.42 Body mass index [BMI] 45.0-49.9, adult
CPT/HCPCS: 36415; 74177; 76882; 80048; 80053; 80202; 80305; 81001; 82962; 83036; 83605; 83690; 83735; 84145; 85025; 85610; 85730; 87040; 87070; 87075; 87077; 87086; 87147; 87205; 87635; 94760; 94762; 96365; 96375; 99285; C9803; J0171; J0692; J0696; J0736; J1170; J1815; J1885; J2020; J2250; J2405; J2704; J3010; J3410; Q9967

== ENCOUNTER 2023-05-05 16:13 | Emergency (ER) | payer OTHER, MEDICAID, SELFPAY ==
[2022-11-18 17:32] VITALS: BMI 46.0
[2023-05-05 16:18] VITALS: BP 184/90; PULSE 77; RESP 18; TEMP 36.5; O2SAT 97; BMI 49.6
--- NOTE | 2023-05-05 16:37 | ED_ITS ---
HPI - Back Pain/Injury <Barbara Delgado PA-C - Last Filed: 05/05/23 18:45> General Chief Complaint: Back Pain/Injury Stated Complaint: fell T-3/rib pain/back pain Time Seen by Provider: 05/05/23 16:35 Source: patient History of Present Illness HPI Narrative: 57-year-old female with history of morbid obesity, KEVAN, GERD, methamphetamine use, asthma, PTSD, uncontrolled type 2 diabetes presents with multiple concerns. Patient states that she was diagnosed with a pneumonia at [facility] and recently finished a course of azithromycin on Saturday. She states that she feels her pneumonia was not completely resolved. She has continued to have a cough. She states she had 2 falls on 4 days ago simply because her slippers are too big and she lost her balance and footing. She said the 1st time she fell forward generally landing on her front side and chest and then the 2nd time was similar but she thinks she may have done something to her left shoulder during one of the falls. She says she has been having rib pain on the left side in the back since and also has some left shoulder pain since the fall. She says she has been using her arms pretty normally but has some discomfort with movement of the left shoulder. She normally walks with a walker. She denies any other complaints or concerns including fevers, chills, shortness of breath, pain with breathing, chest pain, loss of consciousness, head injury with fall, or any other symptoms. Patient states she has narcolepsy and sleep apnea and often falls asleep easily. Related Data Home Medications Medication Instructions Recorded Confirmed acetaminophen 325 mg tablet 325 - 650 mg PO Q6HP PRN pain 08/07/18 11/18/22 ibuprofen 800 mg tablet 800 mg PO TID 08/07/18 11/18/22 cephalexin 500 mg capsule 500 mg PO 4XD 11/18/22 11/18/22 clobetasol 0.05 % topical ointment 1 applic topical DAILY PRN Rash 11/18/22 11/18/22 ipratropium 20 mcg-albuterol 100 1 puff inhalation 4XD 11/18/22 11/18/22 mcg/actuation mist for inhalation (Combivent Respimat) omeprazole 20 mg capsule,delayed 20 mg PO DAILY 11/18/22 11/18/22 release Previous Rx's Medication Instructions Recorded doxycycline hyclate 100 mg tablet 100 mg PO BID PNA 7 days #14 tabs 05/05/23 lidocaine 5 % topical patch 1 patch topical DAILY pain 15 days 05/05/23 #15 ea Allergies Allergy/AdvReac Type Severity Reaction Status Date / Time Penicillins [PENICILLINS] Allergy Severe Anaphylaxis Verified 11/19/22 16:49 codeine [CODEINE] Allergy Unknown Verified 10/05/19 20:33 fluconazole [From DIFLUCAN] Allergy Unknown Verified 10/05/19 20:33 morphine [MORPHINE] Allergy Unknown Verified 10/05/19 20:33 All Opiates per patient Allergy Uncoded 10/05/19 20:33 Review of Systems <Barbara Delgado PA-C - Last Filed: 05/05/23 18:45> Review of Systems Narrative: See HPI Patient History <Barbara Delgado PA-C - Last Filed: 05/05/23 18:45> Medical History Tobacco dependence PTSD (post-traumatic stress disorder) Asthma Fibromyalgia Diabetic neuropathy Uncontrolled diabetes mellitus Methamphetamine abuse Surgical History S/P section S/P jaren Social History household members: other Smoking Status: Current every day smoker alcohol intake: never Smoking Status: Current every day smoker tobacco type: cigarettes alcohol intake frequency: 0-2 drinks per day Substance Use Type: former substance user Exam <Barbara Delgado PA-C - Last Filed: 05/05/23 18:45> Narrative Exam Narrative: GENERAL: [57] year old patient appears stated age. Morbidly obese deconditioned, walks with walker, in mild distress. HEAD: Atraumatic. Normocephalic. EYES: Pupils equal round and reactive. Extraocular motions intact. No scleral icterus. No injection or drainage. ENT: Nose without bleeding, purulent drainage. Throat without erythema, tonsillar hypertrophy or exudate. Airway patent. NECK: Trachea midline. Non tender CARDIOVASCULAR: Regular rate and rhythm without murmurs, gallops, or rubs. RESPIRATORY: Course lung sounds. Breath sounds equal bilaterally. Very harsh cough with deep inspiration. No wheezes, rales, or rhonchi. GASTROINTESTINAL: Abdomen protruberant. EXTREMITIES: Patient is able to perform normal active range of motion equal bilaterally at the shoulders and the arms however endorses mild pain with movement/rotation of the left shoulder. No edema or joint tenderness. Equal bilateral film reader. BACK/THORAX: Midline spinous process is Nontender without deformity or crepitance. No flank tenderness. There is tenderness over the left side rib at approximately T9 level posteriorly and laterally. NEURO: AOx3. Intermittently somnolent, falling asleep easily but immediately aroused with voice. Baseline per patient 2nd to sleep apnea/narcolepsy SKIN: No rash or erythema of visible areas Initial Vital Signs Initial Vital Signs: Vital Signs Temperature 97.7 F 05/05/23 16:18 Pulse Rate 77 05/05/23 16:18 Respiratory Rate 18 05/05/23 16:18 Blood Pressure 184/90 H 05/05/23 16:18 Pulse Oximetry 97 05/05/23 16:18 Oxygen Delivery Method Room Air 05/05/23 16:18 <Kiki Davila MD - Last Filed: 05/06/23 07:07> Initial Vital Signs Initial Vital Signs: Vital Signs Temperature 97.7 F 05/05/23 16:18 Pulse Rate 77 05/05/23 16:18 Respiratory Rate 18 05/05/23 16:18 Blood Pressure 184/90 H 05/05/23 16:18 Pulse Oximetry 97 05/05/23 16:18 Oxygen Delivery Method Room Air 05/05/23 16:18 Course <Barbara Delgado PA-C - Last Filed: 05/05/23 18:45> Orders Ordered: ED Orders 05/05/23 16:59 XR ribs LT min 3V w CXR1V Stat 05/05/23 17:01 XR shoulder LT min 2V Stat Vital Signs Vital signs: Vital Signs - 8 hr 05/05/23 16:18 Temperature 97.7 F Pulse Rate 77 Respiratory Rate 18 Blood Pressure 184/90 H Pulse Oximetry 97 Oxygen Delivery Method Room Air <Kiki Davila MD - Last Filed: 05/06/23 07:07> Orders Ordered: ED Orders 05/05/23 16:59 XR ribs LT min 3V w CXR1V Stat 05/05/23 17:01 XR shoulder LT min 2V Stat Vital Signs Vital signs: Vital Signs - 8 hr 05/05/23 16:18 Temperature 97.7 F Pulse Rate 77 Respiratory Rate 18 Blood Pressure 184/90 H Pulse Oximetry 97 Oxygen Delivery Method Room Air MDM - Back Pain/Injury <Barbara Delgado PA-C - Last Filed: 05/05/23 18:45> Medical Records Medical records narrative: 57-year-old morbidly obese female who ambulates with a walker and has history of uncontrolled diabetes, diabetic neuropathy, fibromyalgia, asthma tobacco dependence KEVAN and GERD as well as methamphetamine use presented today to the ER with concern for left shoulder pain and left rib pain after sustaining 2 falls on 4 days ago. As well as concern that her pneumonia that she was recently treated for may not be completely resolved. [facility] note that patient apparently had a chest x-ray possibly concerning for pneumonia in the [place] on 04/24/2023, 11 days ago and was placed on azithromycin as well as given 2 g of ceftriaxone in the ER at that time she also received dexamethasone. Today after exam and discussion with the patient x-rays are ordered of left ribs as well as AP chest and left shoulder and this returns without evidence of rib fracture or shoulder abnormality on imaging. She was sleepy and somewhat somnolent intermittently on initial exam a nd checked a fingerstick blood glucose which was 241. She has chronically high sugars and poorly controlled diabetes, she has no symptoms suggestive of DKA and labs are not obtained today. Her x-rays also do not strongly suggest a pneumonia, however given her recent symptoms, very harsh cough history of asthma and general poor health with recent completion of the pack and persistent harsh cough due prescribed doxycycline for the patient. Suspect that she has a mild strain of her left shoulder. I think it is unlikely that she has rib fractures based on negative x-rays and exam. Patient has KEVAN and reports narcolepsy, she was intermittently somnolent during her ED stay and napped for a good portion of it, she was arousable and reported this daytime napping is baseline for her. When obtaining discharge vitals patient was still sleepy and RN noted that she had oxygen levels in the mid-to-high 80s which improved to the 90s with waking. Counseled the patient regarding this and concerned that she really does need CPAP evaluation and treatment for her KEVAN, patient states that she is currently playing phone tag for a sleep study and 1 is already in progress. She advise that she does not have a CPAP and she is almost always sleepy during the day. She is advised to follow up closely with her primary care provider and encouraged to talk to them about further evaluation by pulmonology should her cough symptoms persist and also discuss CPAP/sleep study. Return precautions provided, follow-up plan discussed, all questions answered. Lab Data Labs: Point of Care Testing Glucose POC 241 Imaging Data Extremity x-ray #1: My Impression: Agree with Radiology interpretation Radiologist's Impression: [address] [address] XRay Report Signed Patient: Mirta Escalante MR#: [id number] : 1965 Acct:[id number] Age/Sex: 57 / F Date of Service: 05/05/23 Loc: ED Accession Number: [id number] Procedure: XR shoulder LT min 2V Ordering Provider: Barbara Delgado P.A-C PROCEDURE: XR SHOULDER LT MIN 2V INDICATIONS: Left shoulder pain/fall 05/01 TECHNIQUE: 3 views of the shoulder were acquired. COMPARISON: None. FINDINGS: Bones: No fractures or dislocations. No suspicious bony lesions. Visualized ribs appear intact. Small calcification adjacent to the humeral head. Mild acromioclavicular osteoarthritic change. Soft tissues: No suspicious soft tissue calcifications. IMPRESSION: No acute bony abnormality. Calcific tendinosis of the supraspinatus. Mild acromioclavicular osteoarthrosis. Dictated by: Bigg Keene M.D. on 05/05/2023 at 16:53 Approved by: Bigg Keene M.D. on 05/05/2023 at 16:54 Left ribs with chest XR: My Impression: Agree with Radiology interpretation Radiologist's Impression: [address] [address] XRay Report Signed Patient: Mirta Escalante MR#: [id number] : 1965 Acct:[id number] Age/Sex: 57 / F Date of Service: 05/05/23 Loc: ED Accession Number: [id number] Procedure: XR ribs LT min 3V w CXR1V Ordering Provider: Barbara Delgado P.A-C PROCEDURE: XR RIBS LT MIN 3V W CXR1V INDICATIONS: recent PNA + fall/L rib pain posterior T9 TECHNIQUE: 2 views of the ribs were acquired, along with a single view chest. COMPARISON: None. FINDINGS: Surgical changes and devices: None. Bones and chest wall: No fractures or dislocations. No suspicious bony lesions. Overlying soft tissues appear unremarkable. Lungs and pleura: No pleural effusions or pneumothorax. Interstitial prominence of the bilateral lungs. Mediastinum: Mediastinal contours appear normal. Heart size is normal. IMPRESSION: No displaced rib fracture or pneumothorax. The bilateral moderate interstitial prominence may be secondary to under penetration due to body habitus versus chronic lung disease. Dictated by: Bigg Keene M.D. on 05/05/2023 at 16:51 Approved by: Bigg Keene M.D. on 05/05/2023 at 16:53 <Kiki Davila MD - Last Filed: 05/06/23 07:07> Lab Data Labs: Point of Care Testing Glucose POC 241 Discharge Plan Departure Patient Disposition: Home Clinical Impression: Rib pain on left side, KEVAN (obstructive sleep apnea) Fall Qualifiers: Encounter type: initial encounter Qualified Code(s): W19.XXXA - Unspecified fall, initial encounter Muscle strain of left shoulder Qualifiers: Encounter type: initial encounter Qualified Code(s): S46.912A - Strain of unspecified muscle, fascia and tendon at shoulder and upper arm level, left arm, initial encounter Activity Restrictions/Additional Instructions: *You have been diagnosed with [left rib pain, muscle strain of your left shoulder and fall] *What to do: *Please continue to take your regular medications as directed. [1] medication prescriptions sent to your pharmacy: [Doxycycline] [ ] New medication written as a paper prescription [ ] No new medications given *Please follow up with your primary care provider in 2-3 days, call for an appointment. Let them know you were seen in the Emergency Department and that we ask that you be seen in follow up. We will electronically transmit a record of today's note if your PCP is in our system. Because you do have a persistent harsh cough and recently finished antibiotics for pneumonia, I am going to go ahead and prescribe additional antibiotics also because you are having some rib discomfort which sometimes can be due to pneumonia/infection. You came in today concern for possible persistent pneumonia and also concern for injuries from a fall you sustained a few days ago. We did x-rays of your shoulder ear chest and your ribs to evaluate. We do not see evidence of a rib fracture and your shoulder also looks okay on x-rays. Your range of motion is pretty good but I suspect that you may have strained muscles around her left shoulder. You should do gentle stretching and take it easy with use of your left shoulder. If you develop new or worsening symptoms or have difficulty using her arm moving forward you should consider seeing Orthopedics, but in the meantime definitely follow up with your primary care provider. Your blood sugar was on the high side today in the emergency department when we did a point of care glucose check, please make sure you are taking all your medications as prescribed and monitor your blood sugars as advised by your primary care provider. Your chest x-ray did not specifically suggest that you have a persistent pneumonia but given your respiratory history and recent pneumonia I think it is reasonable to go ahead and treat you with additional course of antibiotics. Please take these for the full course as prescribed. Please also ensure you are taking your medications for your asthma as indicated (combivent). If you continue to have a cough or other symptoms of concern do recommend seeing your primary care provider and you may want to talk to them about seeing pulmonology for further evaluation if you have not done so in the past year. Please work on getting in for your sleep study as your obstructive sleep apnea is definitely a problem for you your oxygen levels were dropping during sleep today in the ER. I recommend Tylenol as well as trying heat and ice for your shoulder discomfort and rib discomfort. I am also prescribing lidocaine for you. If you develop fevers chills new or worsening symptoms please make sure you get re-evaluated. *If you do not have a primary care provider please contact the [facility] Resource line at [phone]. They will ask some questions about your medical history and help get you set up with a doctor in the community. *Return to Emergency Department if you should have any new, worsening or concerning symptoms, such as [fever greater than 101 F, shaking chills, worsening pain, persistent vomiting or other bothersome symptoms] Prescriptions: New doxycycline hyclate 100 mg tablet 100 mg PO BID 7 Days Qty: 14 0RF lidocaine 5 % adhesive patch,medicated 1 patch topical DAILY 15 Days Qty: 15 0RF Rx Instructions: leave on most painful area for up to 12 hrs No Action ibuprofen 800 mg tablet 800 mg PO TID acetaminophen 325 MG tablet 325 - 650 mg PO Q6HP PRN (Reason: pain) cephalexin 500 mg capsule 500 mg PO 4XD omeprazole 20 mg capsule,delayed release(DR/EC) 20 mg PO DAILY clobetasol 0.05 % ointment 1 applic topical DAILY PRN (Reason: Rash) Rx Instructions: it affected ear Combivent Respimat 20-100 mcg/actuation mist 1 puff inhalation 4XD Rx Instructions: pt states has not been using Stand Alone Forms: Patient Portal/API ED Sign-out <Kiki Davila MD - Last Filed: 05/06/23 07:07> Cosign ED Attending Cosignature Attestation: I did not see this patient. I was available all times for consultation.
--- NOTE | 2023-05-05 16:59 | DI.RAD.S_ITS ---
PROCEDURE: XR RIBS LT MIN 3V W CXR1V INDICATIONS: recent PNA + fall/L rib pain posterior T9 TECHNIQUE: 2 views of the ribs were acquired, along with a single view chest. COMPARISON: None. FINDINGS: Surgical changes and devices: None. Bones and chest wall: No fractures or dislocations. No suspicious bony lesions. Overlying soft tissues appear unremarkable. Lungs and pleura: No pleural effusions or pneumothorax. Interstitial prominence of the bilateral lungs. Mediastinum: Mediastinal contours appear normal. Heart size is normal. IMPRESSION: No displaced rib fracture or pneumothorax. The bilateral moderate interstitial prominence may be secondary to under penetration due to body habitus versus chronic lung disease. Dictated by: Bigg Keene M.D. on 05/05/2023 at 16:51 Approved by: Bigg Keene M.D. on 05/05/2023 at 16:53
--- NOTE | 2023-05-05 17:01 | DI.RAD.S_ITS ---
PROCEDURE: XR SHOULDER LT MIN 2V INDICATIONS: Left shoulder pain/fall 05/01 TECHNIQUE: 3 views of the shoulder were acquired. COMPARISON: None. FINDINGS: Bones: No fractures or dislocations. No suspicious bony lesions. Visualized ribs appear intact. Small calcification adjacent to the humeral head. Mild acromioclavicular osteoarthritic change. Soft tissues: No suspicious soft tissue calcifications. IMPRESSION: No acute bony abnormality. Calcific tendinosis of the supraspinatus. Mild acromioclavicular osteoarthrosis. Dictated by: Bigg Keene M.D. on 05/05/2023 at 16:53 Approved by: Bigg Keene M.D. on 05/05/2023 at 16:54
[2023-05-05 18:42] VITALS: BP 152/65; PULSE 79; RESP 16; O2SAT 93
== END 2023-05-05 18:47 | disposition home or self-care (01) ==
PROVIDERS: Emergency Provider Student in an Organized Health Care Education/Training Program
DX: S46.912A Strain of unspecified muscle, fascia and tendon at shoulder and upper arm level, left arm, initial encounter (principal); R05.9 Cough, unspecified; G47.33 Obstructive sleep apnea (adult) (pediatric); W18.30XA Fall on same level, unspecified, initial encounter
CPT/HCPCS: 71101; 73030; 82962; 99281; 99284

== ENCOUNTER 2023-05-09 10:11 | Emergency (ER) | payer OTHER, MEDICAID, SELFPAY ==
[2022-11-18 17:32] VITALS: BMI 46.0
[2023-05-09 10:22] VITALS: BP 168/94; PULSE 74; RESP 18; TEMP 36.1; O2SAT 95; BMI 49.6
--- NOTE | 2023-05-09 11:04 | ED_ITS ---
HPI - Eye Problem <Mirta Latif PA-C - Last Filed: 05/09/23 11:51> General Chief complaint: Eye Problems Stated complaint: something in eye Time Seen by Provider: 05/09/23 11:02 Source: patient Mode of arrival: Ambulatory History of Present Illness HPI Narrative: 57-year-old female presents today with a sensation of foreign body in her left eye. She states she noticed it at 3:49 a.m. in her hotel that she shares with a roommate. She feels like it is under the upper lid. She is denying any vision changes, any pain per se any sensitivity to light no prior history of eye disease, she only wears readers no contact lenses or other prescription lenses. No recent travel, no treatment tried she does report increased tearing. No itching no recent illness all other systems are reviewed and are negative. MD chief complaint: foreign body (Under left eyelid) Related Data Home Medications Medication Instructions Recorded Confirmed acetaminophen 325 mg tablet 325 - 650 mg PO Q6HP PRN pain 08/07/18 11/18/22 ibuprofen 800 mg tablet 800 mg PO TID 08/07/18 11/18/22 cephalexin 500 mg capsule 500 mg PO 4XD 11/18/22 11/18/22 clobetasol 0.05 % topical ointment 1 applic topical DAILY PRN Rash 11/18/22 11/18/22 ipratropium 20 mcg-albuterol 100 1 puff inhalation 4XD 11/18/22 11/18/22 mcg/actuation mist for inhalation (Combivent Respimat) omeprazole 20 mg capsule,delayed 20 mg PO DAILY 11/18/22 11/18/22 release Previous Rx's Medication Instructions Recorded doxycycline hyclate 100 mg tablet 100 mg PO BID PNA 7 days #14 tabs 05/05/23 lidocaine 5 % topical patch 1 patch topical DAILY pain 15 days 05/05/23 #15 ea polyvinyl alcohol 1.4 % eye drops 1 drp EYE-LEFT 4-6XD #15 mL 05/09/23 (Artificial Tears (polyvinyl alcohol)) Allergies Allergy/AdvReac Type Severity Reaction Status Date / Time Penicillins [PENICILLINS] Allergy Severe Anaphylaxis Verified 05/09/23 10:22 codeine [CODEINE] Allergy Unknown Verified 05/09/23 10:22 fluconazole [From DIFLUCAN] Allergy Unknown Verified 05/09/23 10:22 morphine [MORPHINE] Allergy Unknown Verified 05/09/23 10:22 All Opiates per patient Allergy Uncoded 10/05/19 20:33 Review of Systems <Mirta Latif PA-C - Last Filed: 05/09/23 11:51> Review of Systems Narrative: All other systems are reviewed and are negative. Patient History <Mirta Latif PA-C - Last Filed: 05/09/23 11:51> Medical History Tobacco dependence PTSD (post-traumatic stress disorder) Asthma Fibromyalgia Diabetic neuropathy Uncontrolled diabetes mellitus Methamphetamine abuse Surgical History S/P section S/P jaren Social History household members: other Smoking Status: Current every day smoker alcohol intake: never Smoking Status: Current every day smoker tobacco type: cigarettes alcohol intake frequency: holidays/special occasions only Substance Use Type: former substance user Exam <Mirta Latif PA-C - Last Filed: 05/09/23 11:51> Initial Vital Signs Initial Vital Signs: Vital Signs Temperature 96.9 F L 05/09/23 10:22 Pulse Rate 74 05/09/23 10:22 Respiratory Rate 18 05/09/23 10:22 Blood Pressure 168/94 H 05/09/23 10:22 Pulse Oximetry 95 05/09/23 10:22 Oxygen Delivery Method Room Air 05/09/23 10:22 Vital signs reviewed and are normal except for elevated blood pressure reading today in a known hypertensive person. Const Other: Ambulates with a walker, seated, no distress. HENMT HENMT Other: Normocephalic. Eyes EOM: EOM intact bilaterally Other: Vision intact to fingers, there is no obvious injection bilaterally. Upper and lower lids are without swelling bilaterally. No periorbital tenderness. The upper lid on the left is everted there is no obvious injury or foreign body the tissues are healthy. Magnification loupes are utilized with plain light again nothing is seen. Fluorescein is instilled the upper lid is everted once more there is no uptake, there are no dendritic lesions no uptake within the cornea or conjunctiva. Exam is well-tolerated. Neck Other: Full range of motion to the neck no adenopathy. <Kiki Davila MD - Last Filed: 05/09/23 14:34> Initial Vital Signs Initial Vital Signs: Vital Signs Temperature 96.9 F L 05/09/23 10:22 Pulse Rate 74 05/09/23 10:22 Respiratory Rate 18 05/09/23 10:22 Blood Pressure 168/94 H 05/09/23 10:22 Pulse Oximetry 95 05/09/23 10:22 Oxygen Delivery Method Room Air 05/09/23 10:22 Course <Mirta Latif PA-C - Last Filed: 05/09/23 11:51> Orders Ordered: Discontinued Medications Fluorescein Sodium (Fluorescein 1 Mg Strip) 1 mg EYE-LEFT NOW ONE Stop: 05/09/23 11:05 Last Admin: 05/09/23 11:12 Dose: 1 mg Documented By: SB Proparacaine HCl (Proparacaine 0.5% Ophth Marilee) 1 drops EYE-BOTH NOW ONE Stop: 05/09/23 11:05 Last Admin: 05/09/23 11:11 Dose: 1 drops Documented By: SB Vital Signs Vital signs: Vital Signs - 8 hr 05/09/23 10:22 05/09/23 11:48 Temperature 96.9 F L 97.3 F L Pulse Rate 74 73 Respiratory Rate 18 14 Blood Pressure 168/94 H 147/73 H Pulse Oximetry 95 94 Oxygen Delivery Method Room Air Room Air <Kiki Davila MD - Last Filed: 05/09/23 14:34> Orders Ordered: Discontinued Medications Fluorescein Sodium (Fluorescein 1 Mg Strip) 1 mg EYE-LEFT NOW ONE Stop: 05/09/23 11:05 Last Admin: 05/09/23 11:12 Dose: 1 mg Documented By: SB Proparacaine HCl (Proparacaine 0.5% Ophth Marilee) 1 drops EYE-BOTH NOW ONE Stop: 05/09/23 11:05 Last Admin: 05/09/23 11:11 Dose: 1 drops Documented By: SB Vital Signs Vital signs: Vital Signs - 8 hr 05/09/23 10:22 05/09/23 11:48 Temperature 96.9 F L 97.3 F L Pulse Rate 74 73 Respiratory Rate 18 14 Blood Pressure 168/94 H 147/73 H Pulse Oximetry 95 94 Oxygen Delivery Method Room Air Room Air MDM - Eye Problem <Mirta Latif PA-C - Last Filed: 05/09/23 11:51> MDM Narrative Medical decision making narrative: She may have had a foreign body or perhaps a hair that was streaking across her eye, extensive examination with magnification loupes and Wood's lamp revealed no foreign body, no corneal abrasion or dendritic lesions. I would like her to do some artificial tears several times throughout the day or lubricating eye drops. Avoid products such as Visine or anything that says ?get the red out? please continue to use this product for the next couple of days avoid rubbing the eyes good handwashing and if you still feel like something is in your eye then please make an appointment with your I provider or return to the emergency department. Discharge Plan Departure Patient Disposition: Home Clinical Impression: Foreign body sensation, left eye Activity Restrictions/Additional Instructions: I would like you to obtain an artificial tear which is [id number] or lubr icating eyedrops. Avoid any product that is called ?get the red out? such as Visine. Again any pharmacy or grocery store should have this product UMass the pharmacist for help. Use this eyedrop several times a day I recommend at least once an hour you can use it in both eyes it is very good after age 40 as well. If you still have a sensation of foreign body please return or see your eye provider. You may also follow-up with your primary care. Red flag warning signs include eye pain, changes in your vision, headache, any discharge from the eye redness of the eye or any other concerns. Prescriptions: New polyvinyl alcohol [Artificial Tears (polyvin alc)] 1.4 % drops 1 drp EYE-LEFT 4-6XD Qty: 15 0RF No Action ibuprofen 800 mg tablet 800 mg PO TID acetaminophen 325 MG tablet 325 - 650 mg PO Q6HP PRN (Reason: pain) cephalexin 500 mg capsule 500 mg PO 4XD omeprazole 20 mg capsule,delayed release(DR/EC) 20 mg PO DAILY clobetasol 0.05 % ointment 1 applic topical DAILY PRN (Reason: Rash) Rx Instructions: it affected ear Combivent Respimat 20-100 mcg/actuation mist 1 puff inhalation 4XD Rx Instructions: pt states has not been using doxycycline hyclate 100 mg tablet 100 mg PO BID 7 Days Qty: 14 0RF lidocaine 5 % adhesive patch,medicated 1 patch topical DAILY 15 Days Qty: 15 0RF Rx Instructions: leave on most painful area for up to 12 hrs Stand Alone Forms: Patient Portal/API ED Sign-out <Kiki Davila MD - Last Filed: 05/09/23 14:34> Cosign ED Attending Cosignature Attestation: I did not see this patient. I was available all times for consultation.
[2023-05-09] MEDS: PROPARACAINE 0.5% OPHTH SOL 1 DROPS EYE-BOTH (11:11)
[2023-05-09] MEDS: FLUORESCEIN 1 MG STRIP EYE-LEFT (11:12)
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
[2023-05-09 11:48] VITALS: BP 147/73; PULSE 73; RESP 14; TEMP 36.3; O2SAT 94
== END 2023-05-09 11:38 | disposition home or self-care (01) ==
PROVIDERS: Emergency Provider Physician Assistant Medical
DX: H57.8A2 Foreign body sensation, left eye (principal)
CPT/HCPCS: 99282

== ENCOUNTER 2023-07-25 14:15 | Inpatient (IN) | payer OTHER, MEDICAID, SELFPAY ==
[2022-11-18 17:32] VITALS: BMI 46.0
[2023-07-25] VITALS (14 sets, daily range): BP systolic 126–182; BP diastolic 68–106; PULSE 73–90; RESP 5–19; TEMP 36.2–36.4; O2SAT 92–99; BMI 51.2
--- NOTE | 2023-07-25 14:33 | EKG_ITS ---
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
--- NOTE | 2023-07-25 14:34 | DI.CT.S_ITS ---
PROCEDURE: CT CERVICAL SPINE WO CON INDICATIONS: fall from wheelchair TECHNIQUE: Noncontrast 3 mm thick sections acquired from the skull base to the T4 level. Sagittal and coronal reformats were then constructed. For radiation dose reduction, the following was used: automated exposure control, adjustment of mA and/or kV according to patient size. COMPARISON: [facility], CT, CT HEAD/BRAIN WO CON, 07/25/2023, 15:48. [facility], CR, XR CHEST 1V, 07/25/2023, 15:46. FINDINGS: Image quality: There are motion artifacts. Bones: No fractures or dislocations. Degenerative disc disease, moderate at C5-C6, and mild at C4-C5. Mild bilateral facet arthropathy scattered in cervical spine. Visualized superior ribs are intact. Soft tissues: Prevertebral soft tissues are normal in thickness. No paravertebral hematomas. No apical pneumothoraces. IMPRESSION: 1. A limited examination due to motion artifacts. 2. No definitive fracture. 3. Spondylitic changes noted. Dictated by: Effie Molina M.D. on 07/25/2023 at 15:11 Approved by: Effie Molina M.D. on 07/25/2023 at 15:18
--- NOTE | 2023-07-25 14:34 | DI.CT.S_ITS ---
PROCEDURE: CT HEAD/BRAIN WO CON INDICATIONS: fall from wheelchair TECHNIQUE: Noncontrast 4.5 mm thick angled axial sections acquired from the foramen magnum to the vertex, with coronal and sagittal reformats. For radiation dose reduction, the following was used: automated exposure control, adjustment of mA and/or kV according to patient size. COMPARISON: None. FINDINGS: Image quality: Diagnostic. CSF spaces: Basal cisterns are patent. No extra-axial fluid collections. Ventricles are normal in size and shape. Brain: No midline shift. No intracranial masses or hemorrhage. Kidd-white matter interface is normal. Skull and face: Calvarium and visualized facial bones are intact, without suspicious lesions. Sinuses: Visualized sinuses and mastoids are clear. IMPRESSION: No acute intracranial pathology. Dictated by: Effie Molina M.D. on 07/25/2023 at 15:09 Approved by: Effie Molina M.D. on 07/25/2023 at 15:10
--- NOTE | 2023-07-25 14:34 | DI.RAD.S_ITS ---
PROCEDURE: XR CHEST 1V INDICATIONS: fall from wheelchair TECHNIQUE: One view of the chest was acquired. COMPARISON: [facility], CR, XR CHEST 2 VIEWS, 09/03/2022, 22:12. [facility], CR, XR CHEST 1V, 12/20/2018, 16:46. FINDINGS: Surgical changes and devices: None. Lungs and pleura: Diffuse interstitial prominence. Loss of vascular distinctness with mild pulmonary vascular congestion. No pneumothorax. Suspected small bilateral pleural effusions. Mediastinum: Mediastinal contours appear normal. Heart size is enlarged. Bones and chest wall: No suspicious bony lesions. Overlying soft tissues appear unremarkable. No displaced rib fractures identified IMPRESSION: Cardiomegaly with findings suggestive of pulmonary edema/CHF. Concurrent infectious or inflammatory process not excluded if clinically appropriate. No acute, displaced rib fractures identified. Dictated by: Jamey Abdullahi M.D. on 07/25/2023 at 16:25 Approved by: Jamey Abdullahi M.D. on 07/25/2023 at 16:27
--- NOTE | 2023-07-25 14:35 | ED.FALL ---
HPI - Fall General Chief Complaint: Fall Stated Complaint: Fall from chair to carpet,nec/shoulder pain Time Seen by Provider: 07/25/23 14:30 Source: patient and EMS Mode of arrival: EMS History of Present Illness HPI Narrative: 57-year-old female with history of methamphetamine opiate use disorder, type 2 diabetes, PTSD, asthma, morbid obesity, diabetic neuropathy who presents with complaint from fall from a chair. Patient was at a cafe that is serves individuals who are homeless. Patient fell forward. She complains of pain everywhere. She is sleepy and falls asleep very easily. She responds to verbal stimuli or sternal rub. She denies any recent ingestions. She does not answer when I asked what medications she is taking currently. She states she might have narcolepsy. She is conversant when awake but falls asleep quite quickly. She denies other symptoms. Denies any GI or urinary symptoms. Denies any swelling of extremities. Related Data Home Medications Medication Instructions Recorded Confirmed acetaminophen 325 mg tablet 325 - 650 mg PO Q6HP PRN pain 08/07/18 11/18/22 ibuprofen 800 mg tablet 800 mg PO TID 08/07/18 11/18/22 cephalexin 500 mg capsule 500 mg PO 4XD 11/18/22 11/18/22 clobetasol 0.05 % topical ointment 1 applic topical DAILY PRN Rash 11/18/22 11/18/22 ipratropium 20 mcg-albuterol 100 1 puff inhalation 4XD 11/18/22 11/18/22 mcg/actuation mist for inhalation (Combivent Respimat) omeprazole 20 mg capsule,delayed 20 mg PO DAILY 11/18/22 11/18/22 release Previous Rx's Medication Instructions Recorded polyvinyl alcohol 1.4 % eye drops 1 drp EYE-LEFT 4-6XD #15 mL 05/09/23 (Artificial Tears (polyvinyl alcohol)) Allergies Allergy/AdvReac Type Severity Reaction Status Date / Time Penicillins [PENICILLINS] Allergy Severe Anaphylaxis Verified 07/25/23 14:26 codeine [CODEINE] Allergy Unknown Verified 07/25/23 14:26 fluconazole [From DIFLUCAN] Allergy Unknown Verified 07/25/23 14:26 morphine [MORPHINE] Allergy Unknown Verified 07/25/23 14:26 All Opiates per patient Allergy Uncoded 10/05/19 20:33 Review of Systems Review of Systems ROS Unobtainable: All systems reviewed & are unremarkable except as noted in HPI and below Patient History Medical History Tobacco dependence PTSD (post-traumatic stress disorder) Asthma Fibromyalgia Diabetic neuropathy Uncontrolled diabetes mellitus Methamphetamine abuse Surgical History S/P section S/P jaren Social History household members: other Smoking Status: Current every day smoker alcohol intake: never Smoking Status: Current every day smoker tobacco type: cigarettes alcohol intake frequency: holidays/special occasions only Substance Use Type: former substance user Exam Narrative Exam Narrative: GEN: Patient appears in mild distress. A&O x3, patient is sleepy falls asleep easily awakens to loud verbal stimuli or sternal rub but falls back asleep fairly quickly. HEAD: No evidence of trauma, no raccoon/Daly sign. NECK: Nontender, painless range of motion, trachea midline Negative Nexus criteria, no midline line tenderness, distracting injury, altered mental status, neuro deficit, recent EtOH. EYES: PERRLA, EOMI, pinpoint pupils bilaterally. ENT: External inspection normal, except for some white plaques bilateral external ears just anterior to the pinna. Trachea is midline, TM's are normal no hemotypanum, Nares are clear, no septal hematoma, no dental or oral injury, airway is normal and with normal occlusion, No bony tenderness RESP: Chest is nontender and has symmetric movement, no ecchymosis, breath sounds are normal no crackles, wheezes or rales CVS: Heart sounds are normal, no murmur noted, No JVD. Bilateral lower extremity edema. ABG/GI: Nontender, soft, normal bowel sounds, no distention, no organomegaly, pelvic rock is negative NEURO: Oriented AOx3, neuro is grossly intact, sensation and motor is normal all 4 extremities moving, cranial nerves II through XII are intact, GCS is 14 PSYCH: Normal mood and affect SKIN: Intact, warm and dry, no crepitus and without decubitus BACK: No CVA tenderness, no vertebral tenderness, no step-off's, no crepitus EXT: Atraumatic, hips are nontender, no pedal edema, normal color and temperature, normal range of motion of extremities with normal tendon exam, 2+ pulses in all four extremities Initial Vital Signs Initial Vital Signs: Vital Signs Temperature 97.6 F 07/25/23 14:22 Pulse Rate 82 07/25/23 14:22 Respiratory Rate 16 07/25/23 14:22 Blood Pressure 136/82 07/25/23 14:22 Pulse Oximetry 94 07/25/23 14:22 Oxygen Delivery Method Room Air 07/25/23 14:22 Course Orders Ordered: ED Orders 07/25/23 14:33 Arterial Blood Gas Stat EKG-12 Lead Stat 07/25/23 14:34 Consult to [employer] - Supervisor Compounding And Finishing Stat CT cervical spine wo con Stat CT head/brain wo con Stat XR chest 1V Stat 07/25/23 15:10 Acetaminophen Stat Ammonia (NH3) Stat BNP [NT-proBNP (BNP-Adult 18+)] Stat Complete Blood Count AUTO DIFF Stat Comprehensive Metabolic Panel Stat Ethanol (ETOH) Stat Lactate (Lactic Acid) Stat Osmolality, Serum Stat PTT Partial Thromboplastin Alexandr Stat Prolactin Stat Prothrombin Time INR Stat Salicylate Stat T4 Total Thyroxine Stat Thyroid Stimulating Hormone Stat Troponin & CK Cardiac Panel Stat 07/25/23 15:54 Arterial Blood Gas Stat 07/25/23 16:20 Urinalysis and Microscopic Stat Urine Drug Screen, Rapid Stat Sodium Chloride (Normal Saline 0.9%) 1,000 mls @ 150 mls/hr IV CONT ALEXANDER Last Infusion: 07/25/23 19:19 Dose: Infused Documented By: Admin: 07/25/23 14:58 Dose: 150 mls/hr Documented By: RB Insulin Glargine (Insulin Glargine 100 Unit/Ml 3ml Pen) 20 unit SUBCUT BEDTIME ALEXANDER Naloxone HCl (Naloxone 0.4 Mg/Ml Vial) 0.2 mg IV Q2MIN PRN PRN Reason: Opiate Reversal Last Admin: 07/25/23 14:58 Dose: 0.2 mg Documented By: RB Discontinued Medications Furosemide (Furosemide 40 Mg/4 Ml Vial) 40 mg IV NOW ONE Stop: 07/25/23 17:15 Last Admin: 07/25/23 17:41 Dose: 40 mg Documented By: MPO Methylprednisolone (Methylprednisolone 125 Mg/2 Ml Vial) 125 mg IV NOW ONE Stop: 07/25/23 16:14 Last Admin: 07/25/23 16:26 Dose: 125 mg Documented By: CLAYTON Vital Signs Vital signs: Vital Signs - 8 hr 07/25/23 14:22 07/25/23 15:01 07/25/23 15:02 Temperature 97.6 F Pulse Rate 82 85 84 Respiratory Rate 16 15 Blood Pressure 136/82 Pulse Oximetry 94 93 93 Oxygen Delivery Method Room Air Fraction of Inspired Oxygen 07/25/23 15:02 07/25/23 15:28 07/25/23 15:30 Temperature Pulse Rate 74 Respiratory Rate 12 Blood Pressure 182/104 H Pulse Oximetry 99 Oxygen Delivery Method Fraction of Inspired Oxygen 40 07/25/23 15:30 07/25/23 15:34 07/25/23 15:34 Temperature Pulse Rate 73 Respiratory Rate 12 Blood Pressure 175/88 H 177/84 H Pulse Oximetry 99 Oxygen Delivery Method BiPAP Fraction of Inspired Oxygen 07/25/23 15:50 07/25/23 15:50 Temperature Pulse Rate 79 Respiratory Rate 13 Blood Pressure 165/82 H Pulse Oximetry 99 Oxygen Delivery Method BiPAP Fraction of Inspired Oxygen MDM - Fall Lab Data 07/25/23 15:10 07/25/23 15:10 Labs: Lab Results 07/25/23 07/25/23 07/25/23 Range/Units 14:33 15:10 15:54 WBC 6.5 (4.5-11.0) X10^3/uL RBC 4.92 (4.0-5.2) X10^6/uL Hgb 15.8 (12.0-16.0) g/dL Hct 47.8 H (36-46) % MCV 97.1 (80-100) fL MCH 32.2 (26-34) PG MCHC 33.1 (30-36) % RDW 16.2 H (11.6-14.8) % Plt Count 174 (150-400) X10^3/uL Neut % (Auto) 73.5 (50-75) % Lymph % (Auto) 16.5 L (25-40) % [place] % (Auto) 6.9 (3-14) % Eos % (Auto) 2.1 (2-4) % Baso % (Auto) 1.0 (0-2) % Neut # (Auto) 4800 (9280-6584) /uL Lymph # (Auto) 1100 (3977-0528) /uL [place] # (Auto) 500 (0-900) /uL Eos # (Auto) 100 (0-450) /uL Baso # (Auto) 100 (0-100) /uL PT 11.6 (9.4-12.5) SECONDS INR 1.0 (0.9-1.3) APTT 38 H (25.1-36.5) SECONDS ABG Sample Site Right radial Left radial ABG pH 7.27 L* 7.32 L (7.35-7.45) ABG pCO2 77.5 H* 68.8 H* (35-45) mmHg ABG pO2 68 L 201 H (80-100) mmHg ABG HCO3 36 H 36 H (23-27) mmol/L ABG Total CO2 38 H 38 H (23-27) mmol/L ABG O2 Saturation 89 L 100 (95-100) % ABG Base Excess 9.0 H 10.0 H (-2-3) mmol/L FiO2 32 60 Sodium 136 L (137-145) mmol/L Potassium 4.2 (3.4-5.1) mmol/L Chloride 99 (98-107) mmol/L Carbon Dioxide 36 H (22-32) mmol/L BUN 21 H (7-17) mg/dL Creatinine 0.70 (0.52-1.04) mg/dL Estimated GFR > 60 (>60) mL/min BUN/Creatinine Ratio 30.0 H (6-22) Glucose 414 H (70-100) mg/dL Lactate 1.0 (0.7-2.1) mmol/L Calcium 8.5 (8.4-10.2) mg/dL Total Bilirubin 0.8 (0.2-1.3) mg/dL AST 26 (14-36) IU/L ALT 26 (<35) IU/L Alkaline Phosphatase 149 H (38-126) U/L Ammonia < 9 L (9-30) umol/L Total Creatine Kinase 126 (30-135) U/L Troponin I 0.044 H (0.01-0.034) ng/mL NT-Pro-B Natriuret Pep 1800 H (<125) pg/mL Total Protein 6.9 (6.3-8.2) g/dL Albumin 4.0 (3.5-5.0) g/dL Globulin 2.9 (1.7-4.1) g/dL Albumin/Globulin Ratio 1.4 (1.0-2.8) TSH 23.1 H (0.47-4.68) uIU/mL Thyroxine (T4) 6.73 (5.5-11.0) ug/dL Prolactin 13.8 (3.0-18.6) ng/mL Urine Color Urine Appearance Urine pH (4.5-8.0) Ur Specific [place] (1.000-1.035) Urine Protein (Negative) Urine Glucose (UA) (Negative) g/dL Urine Ketones (NEGATIVE) Urine Occult Blood (Negative) Urine Nitrate (Negative) Urine Bilirubin (NEGATIVE) Urine Urobilinogen (0.2) E.U./dL Ur Leukocyte Esterase (NEGATIVE) Urine RBC (0-5/HPF) Urine WBC (0-5/HPF) Ur Squamous Epith Cells (0-5/HPF) Amorphous Sediment Urine Bacteria (None) Ur Culture Indicated? Vol Urine Centrifuged Salicylates < 1.0 (<20) mg/dL U Opiates 300ng/mL cut (Negative) Ur Oxycodone Screen (Negative) Urine Methadone Screen (Negative) Acetaminophen < 10 (10-30) ug/mL Ur Barbiturates Screen (Negative) U Tricyclic Antidepress (Negative) Ur Phencyclidine Scrn (Negative) Ur Amphetamines Screen (Negative) U Methamphetamines Scrn (Negative) Ur MDMA Scrn (Ecstasy) (Negative) U Benzodiazepines Scrn (Negative) Urine Cocaine Screen (Negative) U Marijuana (THC) Screen (Negative) Urine Specific [place] (Normal) Ethyl Alcohol < 10 ( - 10) mg/dL Ur Creatinine (Normal) 07/25/23 07/25/23 Range/Units 16:20 16:20 WBC (4.5-11.0) X10^3/uL RBC (4.0-5.2) X10^6/uL Hgb (12.0-16.0) g/dL Hct (36-46) % MCV (80-100) fL MCH (26-34) PG MCHC (30-36) % RDW (11.6-14.8) % Plt Count (150-400) X10^3/uL Neut % (Auto) (50-75) % Lymph % (Auto) (25-40) % [place] % (Auto) (3-14) % Eos % (Auto) (2-4) % Baso % (Auto) (0-2) % Neut # (Auto) (5382-4833) /uL Lymph # (Auto) (1358-0626) /uL [place] # (Auto) (0-900) /uL Eos # (Auto) (0-450) /uL Baso # (Auto) (0-100) /uL PT (9.4-12.5) SECONDS INR (0.9-1.3) APTT (25.1-36.5) SECONDS ABG Sample Site ABG pH (7.35-7.45) ABG pCO2 (35-45) mmHg ABG pO2 (80-100) mmHg ABG HCO3 (23-27) mmol/L ABG Total CO2 (23-27) mmol/L ABG O2 Saturation (95-100) % ABG Base Excess (-2-3) mmol/L FiO2 Sodium (137-145) mmol/L Potassium (3.4-5.1) mmol/L Chloride (98-107) mmol/L Carbon Dioxide (22-32) mmol/L BUN (7-17) mg/dL Creatinine (0.52-1.04) mg/dL Estimated GFR (>60) mL/min BUN/Creatinine Ratio (6-22) Glucose (70-100) mg/dL Lactate (0.7-2.1) mmol/L Calcium (8.4-10.2) mg/dL Total Bilirubin (0.2-1.3) mg/dL AST (14-36) IU/L ALT (<35) IU/L Alkaline Phosphatase (38-126) U/L Ammonia (9-30) umol/L Total Creatine Kinase (30-135) U/L Troponin I (0.01-0.034) ng/mL NT-Pro-B Natriuret Pep (<125) pg/mL Total Protein (6.3-8.2) g/dL Albumin (3.5-5.0) g/dL Globulin (1.7-4.1) g/dL Albumin/Globulin Ratio (1.0-2.8) TSH (0.47-4.68) uIU/mL Thyroxine (T4) (5.5-11.0) ug/dL Prolactin (3.0-18.6) ng/mL Urine Color Yellow Urine Appearance Clear Urine pH 5.5 Normal (4.5-8.0) Ur Specific [place] 1.015 (1.000-1.035) Urine Protein 2+ H (Negative) Urine Glucose (UA) 3+ H (Negative) g/dL Urine Ketones Negative (NEGATIVE) Urine Occult Blood Negative (Negative) Urine Nitrate Negative (Negative) Urine Bilirubin Negative (NEGATIVE) Urine Urobilinogen 1.0 (0.2) E.U./dL Ur Leukocyte Esterase Negative (NEGATIVE) Urine RBC None seen (0-5/HPF) Urine WBC None seen (0-5/HPF) Ur Squamous Epith Cells 0-1 /hpf D (0-5/HPF) Amorphous Sediment 1+ Urine Bacteria Few (2-10) H (None) Ur Culture Indicated? Cult not indicated Vol Urine Centrifuged Low vol <1ml unspun A Salicylates (<20) mg/dL U Opiates 300ng/mL cut Negative (Negative) Ur Oxycodone Screen Negative (Negative) Urine Methadone Screen Negative (Negative) Acetaminophen (10-30) ug/mL Ur Barbiturates Screen Negative (Negative) U Tricyclic Antidepress Negative (Negative) Ur Phencyclidine Scrn Negative (Negative) Ur Amphetamines Screen Negative (Negative) U Methamphetamines Scrn Negative (Negative) Ur MDMA Scrn (Ecstasy) Negative (Negative) U Benzodiazepines Scrn Negative (Negative) Urine Cocaine Screen Negative (Negative) U Marijuana (THC) Screen Negative (Negative) Urine Specific [place] Normal (Normal) Ethyl Alcohol ( - 10) mg/dL Ur Creatinine Normal (Normal) ECG Data Attestation: I personally reviewed and interpreted this ECG as follows: Prior ECG tracings: not available for review Interpretation: Sinus rhythm rate 76, WI 172 QRS 80 QTC 411. No acute ST elevation or depression appreciated. No priors for comparison. MDM Narrative Medical decision making narrative: 57-year-old female with known history of opiate and methamphetamine abuse who appears little bit altered, very sleepy pinpoint pupils. Patient does become hypoxic she responds to sternal rub or verbal stimuli. She did have a fall out of a chair earlier today unclear she was sleepy prior to this occurring or after. Imaging, head CT shows no acute change. CT C-spine shows spondylitic changes no other acute changes. Cardiomegaly with findings suggestive pulmonary edema CHF. Labs going to 6.5 hemoglobin of 15 platelets of 174, INR is 1, sodium is 136 potassium is 4.2 CO2 is 36 with a chloride 99, BUN is 21 creatinine 0.7, glucose is 414. Alk-phos is 149 ammonia is less than 9, troponins 0.044, BNP is 1800. TSH is 23, T4 6.73. Prolactin 13.8. Serum osmolarity is pending. This is a send out. Salicylate, Tylenol and ETOH is negative. Urine 2+ protein 3+ glucose negative for ketones, no nitrates, no leuks, few bacteria. UDS is negative. ABG shows respiratory acidosis, hypercapnia, PO2 68. Patient had repeat an hour after starting BiPAP CO2 became 68, pCO2 of 7.32, PO2 is 200, bicarb is 35. Patient has anion gap of 1 T4 was added on his TSH is quite elevated. Chest x-ray shows some possible pulmonary edema so Lasix was ordered. Patient received some fluids, she also received Narcan here in the department. Patient has been sleepy but when nurses did urinary catheterization she can lift her legs move them participates actively. But then does fall back asleep. Patient indicates she has had BiPAP in the past, she states she had only been intubated prior for surgeries. She does use tobacco regularly. Spoke with Dr. Mathew, discussed observation he would asked for troponin to be added on, also has a give 20 units of Lantus subQ based on prior visits. This was done was 0.044. Spoke with Dr. Mathew. Evaluated patient here in the department. Asked for repeat ABG before going upstairs to make sure no rising CO2. ABG shows pH of 7.36 pCO2 of 66 slightly improved from prior PaO2 of 154 with a bicarb of 37. Dana Keith received ABG and felt comfortable with patient coming up on BiPAP to ICU. Admit to ICU. Critical Care Time Critical Care Time Critical Care Time: Yes Total Critical Care Time: 45 Attestation: The high probability of a clinically significant, sudden or life threatening deterioration of the cardiac system(s) required my full and direct attention, intervention and personal management. The aggregate critical care time was 5 minutes. This time is in addition to time spent performing reported procedures but includes the following: [x] Data Review and interpretation [x] Patient assessment and monitoring of vital signs [x] Documentation [x] Medication orders and management Discharge Plan Departure Patient Disposition: Admitted As Inpatient Clinical Impression: Acute hypercapnic respiratory failure, Hyperglycemia, Congestive heart failure Admit Date/Time: 07/25/23 18:35 Admit Provider: Ryan Mathew
[2023-07-25] MEDS: NALOXONE 0.4 MG/ML VIAL 0.2 MG IV (14:58)
[2023-07-25] MEDS: SODIUM CHLORIDE 0.9% 1,000 ML 150 ML IV (14:58)
[2023-07-25 15:22] LABS: Add Manual Diff / Slide Review NO; Basophils Absolute Auto 100 /uL (0-100); Eosinophils Absolute Auto 100 /uL (0-450); Eosinophils Percent Auto 2.1 % (2-4); Hematocrit 47.8 % (36-46); Hemoglobin 15.8 g/dL (12.0-16.0); Lymphocytes Absolute Auto 1100 /uL (1100-4500); Lymphocytes Percent Auto 16.5 % (25-40); Mean Corpuscular HGB Conc 33.1 % (30-36); Mean Corpuscular Hemoglobin 32.2 PG (26-34); Mean Corpuscular Volume 97.1 fL (80-100); Monocytes Absolute Auto 500 /uL (0-900); Monocytes Percent Auto 6.9 % (3-14); Neutrophils Absolute Auto 4800 /uL (1500-7000); Neutrophils Percent Auto 73.5 % (50-75); Platelet Count 174 X10^3/uL (150-400); Red Blood Cell Count 4.92 X10^6/uL (4.0-5.2); Red Cell Distribution Width 16.2 % (11.6-14.8); White Blood Cell Count 6.5 X10^3/uL (4.5-11.0)
--- NOTE | 2023-07-25 15:22 | PC.NURSE ---
Addendum entered by Sabrina Chambers R.N. 07/25/23 15:25: bedside to draw labs. Pt given Narcan 0.2mg x2 with no change in somnolence. Pt placed on BiPAP and is tolerating well. This RN within site for observation. Original Note: After triage, pt placced on SP02 and BP for monitoring. Pt 's SPO2 decreased to 60's and pt had long pauses between breaths when she falls asleep. Pt placed on 2LNC. Dr Nuñez notified. Pt moved to room 6 and placed on ETCO2 which read in the 70's. PIV established via US. Lab and RT at [facility]
[2023-07-25 15:31] LABS: Prothrombin Time 11.6 SECONDS (9.4-12.5)
[2023-07-25 15:33] LABS: PTT Partial Thromboplastin Tim 38 SECONDS (25.1-36.5)
[2023-07-25 15:34] LABS: Allen Test for ABG Passed? Yes, Passed; Blood Gas Collection Site Right Radial; Fractionated Inspired Oxygen 32; HCO3 ABG 36 mmol/L (23-27); Oxygen Saturation ABG 89 % (95-100); PCO2 ABG 77.5 mmHg (35-45); PO2 ABG 68 mmHg (80-100); TCO2 ABG 38 mmol/L (23-27)
[2023-07-25 15:36] LABS: Acetaminophen < 10 ug/mL (10-30); Alanine Aminotransferase 26 IU/L (<35); Albumin Globulin Ratio 1.4 (1.0-2.8); Alkaline Phosphatase 149 U/L (38-126); Aspartate Aminotransferase 26 IU/L (14-36); Bilirubin Total 0.8 mg/dL (0.2-1.3); Blood Urea Nitrogen 21 mg/dL (7-17); Calcium 8.5 mg/dL (8.4-10.2); Carbon Dioxide 36 mmol/L (22-32); Chloride 99 mmol/L (98-107); Estimated Glomerular Filt Rate > 60 mL/min (>60); Globulin 2.9 g/dL (1.7-4.1); Glucose 414 mg/dL (70-100); HEMOLYSIS 23 (0-50); Salicylate < 1.0 mg/dL (<20); Sodium 136 mmol/L (137-145); Total Protein 6.9 g/dL (6.3-8.2)
[2023-07-25 15:37] LABS: Ammonia (NH3) < 9 umol/L (9-30); Ethanol (ETOH) < 10 mg/dL; Potassium 4.2 mmol/L (3.4-5.1)
[2023-07-25 15:52] LABS: Prolactin 13.8 ng/mL (3.0-18.6)
[2023-07-25 15:53] LABS: pH ABG 7.27 (7.35-7.45)
[2023-07-25 16:07] LABS: Thyroid Stimulating Hormone 23.1 uIU/mL (0.47-4.68)
[2023-07-25 16:11] LABS: HCO3 ABG 36 mmol/L (23-27); Oxygen Saturation ABG 100 % (95-100); PCO2 ABG 68.8 mmHg (35-45); PO2 ABG 201 mmHg (80-100); TCO2 ABG 38 mmol/L (23-27); pH ABG 7.32 (7.35-7.45)
[2023-07-25 16:12] LABS: Allen Test for ABG Passed? Yes, Passed; Blood Gas Collection Site Left Radial; Fractionated Inspired Oxygen 60
--- NOTE | 2023-07-25 16:25 | PC.NURSE ---
PT straight cathed for urine specimen. pt able to follow all commands and was cooperative to roll and lift hips for bed owen. Clothing removed and placed in gown, repositioned and given warm blankets.
[2023-07-25] MEDS: methylPREDNISolone 125 MG/2 ML VIAL IV (16:26)
[2023-07-25 16:31] LABS: Appearance Urine UA CLEAR; Bilirubin Urine UA NEGATIVE (NEGATIVE); Color Urine UA YELLOW; Glucose Urine UA 3+ g/dL (Negative); Ketones Urine UA NEGATIVE (NEGATIVE); Leukocyte Esterase Urine UA NEGATIVE (NEGATIVE); Nitrite Urine UA NEGATIVE (Negative); Occult Blood Urine UA NEGATIVE (Negative); Protein Urine UA 2+ (Negative); Specific Gravity Urine UA 1.015 (1.000-1.035)
[2023-07-25 16:32] LABS: Bacteria Urine Few (2-10); RBC Urine None Seen (0-5/HPF); Squamous Epithelial Cell Urine 0-1 /HPF (0-5/HPF); Urine Volume Low Vol <1mL unspun; WBC Urine None Seen (0-5/HPF); pH Urine UA 5.5 (4.5-8.0)
[2023-07-25 16:33] LABS: Amorphous Sediment Urine 1+; Culture Indicated Urine Cult Not Indicated
[2023-07-25 16:34] LABS: Ur Creatinine Normal (Normal); Ur Specific Gravity Normal (Normal); Urine Amphetamines Negative (Negative); Urine Barbiturates Negative (Negative); Urine Benzodiazepines Negative (Negative); Urine Cocaine Negative (Negative); Urine MDMA Negative (Negative); Urine Methadone Negative (Negative); Urine Methamphetamines Negative (Negative); Urine Opiates Negative (Negative); Urine Oxycodone Negative (Negative); Urine Phencyclidine Negative (Negative); Urine THC Negative (Negative); Urine Tricyclic Antidepressant Negative (Negative); Urine pH Normal (Normal)
[2023-07-25] MEDS: FUROSEMIDE 40 MG/4 ML VIAL IV (17:41)
[2023-07-25 17:45] LABS: NT-proBNP (BNP-Adult 18+) 1800 pg/mL (<125)
[2023-07-25 17:57] LABS: T4 Total Thyroxine 6.73 ug/dL (5.5-11.0)
[2023-07-25 18:10] LABS: Creatine Kinase 126 U/L (30-135)
[2023-07-25 18:22] LABS: Troponin I 0.044 ng/mL (0.01-0.034)
--- NOTE | 2023-07-25 18:54 | PM.HP.1 ---
History of Present Illness History of Present Illness Date Patient Seen: 07/25/23 Time Patient Seen: 18:54 Chief complaint: Fall from chair to carpet,nec/shoulder pain Narrative: Patient is unable to participate in history portion, largely obtained from ER provider as patient is lethargic on BiPAP currently. She is arousable, answers some questions but falls asleep easily. Mirta Escalante is a 53-year-old homeless female with diabetes type 2, posttraumatic stress disorder, asthma, fibromyalgia, diabetic neuropathy, KEVAN who presented initially after a fall from a chair. She fell forward, and complained of pain everywhere in the emergency room. She was hypersomnolent and denied any drug use or ingestions to the ER provider. She was noted to be hypercapnic on labs with PCO2 of 77.5. She was started on bipap with slow improvement. CXR showed cardiomegaly and probable CHF. She was given 40 mg of IV lasix. Glucose was 414, with prior admission patient was on 20 U BID lantus, asked to give 20 U of lantus. Initial troponin 0.044, without ischemic changes on EKG. ProBNP was 1800. TSH was 23. She initially improved but remained lethargic, and PCO2 had improved and pH had returned to 7.36 with PCO2 of 66. With continued lethargy, patient admitted on bipap to the ICU for continued management of multifactorial acute on chronic hypercapnic respiratory failure. FORMERLY [facility] Medical History Tobacco dependence PTSD (post-traumatic stress disorder) Asthma Fibromyalgia Diabetic neuropathy Uncontrolled diabetes mellitus Methamphetamine abuse Surgical History S/P section S/P jaren Social History household members: other Smoking Status: Current every day smoker alcohol intake: current Meds Home Medications and Allergies Home Medications Medication Instructions Recorded Confirmed Type acetaminophen 325 mg tablet 325 - 650 mg PO Q6HP PRN pain 08/07/18 07/25/23 History ibuprofen 800 mg tablet 800 mg PO TID 08/07/18 07/25/23 History ipratropium 20 mcg-albuterol 100 1 puff inhalation 4XD 11/18/22 07/25/23 History mcg/actuation mist for inhalation (Combivent Respimat) omeprazole 20 mg capsule,delayed 20 mg PO DAILY 11/18/22 07/25/23 History release polyvinyl alcohol 1.4 % eye drops 1 drp EYE-LEFT 4-6XD #15 mL 05/09/23 07/25/23 Rx (Artificial Tears (polyvinyl alcohol)) Allergies Allergy/AdvReac Type Severity Reaction Status Date / Time Penicillins [PENICILLINS] Allergy Severe Anaphylaxis Verified 07/25/23 14:26 codeine [CODEINE] Allergy Unknown Verified 07/25/23 14:26 fluconazole [From DIFLUCAN] Allergy Unknown Verified 07/25/23 14:26 morphine [MORPHINE] Allergy Unknown Verified 07/25/23 14:26 All Opiates per patient Allergy Uncoded 10/05/19 20:33 Review of Systems Review of Systems Narrative: Patient unable to participate in ROS due to acute encephalopathy. Exam Vital Signs (past 8 hours): - 07/25/23 14:22 07/25/23 15:01 07/25/23 15:02 Temperature 97.6 F Pulse Rate 82 85 84 Respiratory Rate 16 15 Blood Pressure 136/82 Pulse Oximetry 94 93 93 Oxygen Delivery Method Room Air Fraction of Inspired Oxygen 07/25/23 15:02 07/25/23 15:28 07/25/23 15:30 Temperature Pulse Rate 74 Respiratory Rate 12 Blood Pressure 182/104 H Pulse Oximetry 99 Oxygen Delivery Method Fraction of Inspired Oxygen 40 07/25/23 15:30 07/25/23 15:34 07/25/23 15:34 Temperature Pulse Rate 73 Respiratory Rate 12 Blood Pressure 175/88 H 177/84 H Pulse Oximetry 99 Oxygen Delivery Method BiPAP Fraction of Inspired Oxygen 07/25/23 15:50 07/25/23 15:50 Temperature Pulse Rate 79 Respiratory Rate 13 Blood Pressure 165/82 H Pulse Oximetry 99 Oxygen Delivery Method BiPAP Fraction of Inspired Oxygen Fraction of Inspired Oxygen 40 Oxygen Delivery Method BiPAP Narrative Exam Narrative: Gen: ill appearing female, lethargic, arouses and difficult to comprehend words on bipap, falls asleep after one word responses. CV: RRR no m/r/g Pulm: bibasilar crackles, poor effort Abd: S NT ND Ext: 1-2+ peripheral LE edema. Objective ECG Impression: NSR with no acute ischemic changes. Labs 07/25/23 15:10 06/13/24 15:10 Labs: Laboratory Results - last 24 hr 07/25/23 07/25/23 07/25/23 14:33 15:10 15:54 WBC 6.5 RBC 4.92 Hgb 15.8 Hct 47.8 H MCV 97.1 MCH 32.2 MCHC 33.1 RDW 16.2 H Plt Count 174 Neut % (Auto) 73.5 Lymph % (Auto) 16.5 L [place] % (Auto) 6.9 Eos % (Auto) 2.1 Baso % (Auto) 1.0 Neut # (Auto) 4800 Lymph # (Auto) 1100 [place] # (Auto) 500 Eos # (Auto) 100 Baso # (Auto) 100 PT 11.6 INR 1.0 APTT 38 H ABG Sample Site Right radial Left radial ABG pH 7.27 L* 7.32 L ABG pCO2 77.5 H* 68.8 H* ABG pO2 68 L 201 H ABG HCO3 36 H 36 H ABG Total CO2 38 H 38 H ABG O2 Saturation 89 L 100 ABG Base Excess 9.0 H 10.0 H FiO2 32 60 Sodium 136 L Potassium 4.2 Chloride 99 Carbon Dioxide 36 H BUN 21 H Creatinine 0.70 Estimated GFR > 60 BUN/Creatinine Ratio 30.0 H Glucose 414 H Lactate 1.0 Calcium 8.5 Total Bilirubin 0.8 AST 26 ALT 26 Alkaline Phosphatase 149 H Ammonia < 9 L Total Creatine Kinase 126 Troponin I 0.044 H NT-Pro-B Natriuret Pep 1800 H Total Protein 6.9 Albumin 4.0 Globulin 2.9 Albumin/Globulin Ratio 1.4 TSH 23.1 H Thyroxine (T4) 6.73 Prolactin 13.8 Urine Color Urine Appearance Urine pH Ur Specific [place] Urine Protein Urine Glucose (UA) Urine Ketones Urine Occult Blood Urine Nitrate Urine Bilirubin Urine Urobilinogen Ur Leukocyte Esterase Urine RBC Urine WBC Ur Squamous Epith Cells Amorphous Sediment Urine Bacteria Ur Culture Indicated? Vol Urine Centrifuged Salicylates < 1.0 U Opiates 300ng/mL cut Ur Oxycodone Screen Urine Methadone Screen Acetaminophen < 10 Ur Barbiturates Screen U Tricyclic Antidepress Ur Phencyclidine Scrn Ur Amphetamines Screen U Methamphetamines Scrn Ur MDMA Scrn (Ecstasy) U Benzodiazepines Scrn Urine Cocaine Screen U Marijuana (THC) Screen Urine Specific [place] Ethyl Alcohol < 10 Ur Creatinine 07/25/23 07/25/23 16:20 16:20 WBC RBC Hgb Hct MCV MCH MCHC RDW Plt Count Neut % (Auto) Lymph % (Auto) [place] % (Auto) Eos % (Auto) Baso % (Auto) Neut # (Auto) Lymph # (Auto) [place] # (Auto) Eos # (Auto) Baso # (Auto) PT INR APTT ABG Sample Site ABG pH ABG pCO2 ABG pO2 ABG HCO3 ABG Total CO2 ABG O2 Saturation ABG Base Excess FiO2 Sodium Potassium Chloride Carbon Dioxide BUN Creatinine Estimated GFR BUN/Creatinine Ratio Glucose Lactate Calcium Total Bilirubin AST ALT Alkaline Phosphatase Ammonia Total Creatine Kinase Troponin I NT-Pro-B Natriuret Pep Total Protein Albumin Globulin Albumin/Globulin Ratio TSH Thyroxine (T4) Prolactin Urine Color Yellow Urine Appearance Clear Urine pH 5.5 Normal Ur Specific [place] 1.015 Urine Protein 2+ H Urine Glucose (UA) 3+ H Urine Ketones Negative Urine Occult Blood Negative Urine Nitrate Negative Urine Bilirubin Negative Urine Urobilinogen 1.0 Ur Leukocyte Esterase Negative Urine RBC None seen Urine WBC None seen Ur Squamous Epith Cells 0-1 /hpf D Amorphous Sediment 1+ Urine Bacteria Few (2-10) H Ur Culture Indicated? Cult not indicated Vol Urine Centrifuged Low vol <1ml unspun A Salicylates U Opiates 300ng/mL cut Negative Ur Oxycodone Screen Negative Urine Methadone Screen Negative Acetaminophen Ur Barbiturates Screen Negative U Tricyclic Antidepress Negative Ur Phencyclidine Scrn Negative Ur Amphetamines Screen Negative U Methamphetamines Scrn Negative Ur MDMA Scrn (Ecstasy) Negative U Benzodiazepines Scrn Negative Urine Cocaine Screen Negative U Marijuana (THC) Screen Negative Urine Specific [place] Normal Ethyl Alcohol Ur Creatinine Normal Assessment & Plan Assessment & Plan narrative: 1. Acute on chronic hypercapnic respiratory failure - patient presents with profound lethargy, imaging is consistent with possible new diagnosis of heart failure contributing to her acute hypercapnea. Has known KEVAN, on labs with metabolic alkalosis and elevated bicarb suggesting chronic hypercapnea. - will check blood cultures, UA negative, does not appear to be consistent with sepsis or infectious etiology - diurese with furosemide 40 BID - continue BiPAP overnight until mentation improved. - differential does include toxic encephalopathy though patient denied and UDS is negative. - echocardiogram ordered - discussed with tele-trade show coordinator 2. Acute metabolic encephalopathy - see above in #1, likely due to acidosis / hypercapnea. 3. uncontrolled type 2 diabetes - start lantus 20 U bedimte, previous admissions was on 20 U BID. - started sliding scale - check A1c. 4. Subclinical hypothyroidism - TSH 23, but normal free t4. Recommend outpatient recheck in 4-6 weeks. 5. Probable new diagnosis acute heart failure - continue to trend troponin with new diagnosis, initial 0.044, likely due to demand - diurese with 40 IV BID - echo ordered as noted above. 6. History of Homelessness - patient's previous unstable housing situation and social circumstances are contributing to poor control of her chronic medications related to her acute presentation. Unknown if patient is currently homeless, will discuss when mentation improved. Code: Presumed full, patient unable to discuss surrogate decision maker. None previously were noted but emergency contacts are son and patient's friend DVT: Lovenox daily I have utilized all available immediate resources to obtain, update, or review the patient's current medications. Dispo: patient admitted to the ICU, inpatient. Anticipate admission of approximately 3-4 days. Additional history obtained via discussions with the ER provider. These discussions contributed to the creation of the above assessment and plan. I have reviewed patient's presenting documentation, labs, and imaging personally. I spent 35 minutes providing critical care management this patient. This excludes time spent in performing separately billed procedures.[id number]
[2023-07-25 19:13] LABS: PCO2 ABG 66.5 mmHg (35-45); pH ABG 7.36 (7.35-7.45)
[2023-07-25 19:14] LABS: Allen Test for ABG Passed? Yes, Passed; Blood Gas Collection Site Right Radial; Fractionated Inspired Oxygen 40; HCO3 ABG 37 mmol/L (23-27); Oxygen Saturation ABG 99 % (95-100); PO2 ABG 154 mmHg (80-100); TCO2 ABG 39 mmol/L (23-27)
--- NOTE | 2023-07-25 19:44 | PM.CN.EICU ---
History of Present Illness Consult details IF CAMERA ACTIVATED, patient seen via real-time interactive audiovisual communication: Camera activated Date Patient Seen: 07/25/23 Chief complaint: Fall from chair to carpet,nec/shoulder pain Consent obtained for tele-supervisor fusing room care: Yes Patient Location: ICU Provider location (State): [place] Other participants/roles: Bedside RN Narrative: Patient is a 57 year old female with history of KEVAN, narcolepsy, morbid obesity, DM, and asthma who presents with AMS. By report patient fell off from a chair and was complaining of diffuse pain. On arrival to ER she was difficult to arouse and ABG showed 7.36/66/154. She was placed on BiPAP. Stat CTH showed no acute pathology. CXR showed bilateral cephalization. Started on lasix 40 mg IV BID and admitted to ICU for further management. On arrival to ICU she is awake and following commands. She is complaining of bilateral leg pain. FORMERLY [facility] Medical History Tobacco dependence PTSD (post-traumatic stress disorder) Asthma Fibromyalgia Diabetic neuropathy Uncontrolled diabetes mellitus Methamphetamine abuse Surgical History S/P section S/P jaren Social History household members: other Smoking Status: Current every day smoker alcohol intake: never Current Medications Current Medications Medications: Home Medications acetaminophen 325 mg tablet 325 - 650 mg PO Q6HP PRN pain 08/07/18 [History Confirmed 11/18/22] ibuprofen 800 mg tablet 800 mg PO TID 08/07/18 [History Confirmed 11/18/22] cephalexin 500 mg capsule 500 mg PO 4XD 11/18/22 [History Confirmed 11/18/22] clobetasol 0.05 % topical ointment 1 applic topical DAILY PRN Rash 11/18/22 [History Confirmed 11/18/22] ipratropium 20 mcg-albuterol 100 mcg/actuation mist for inhalation (Combivent Respimat) 1 puff inhalation 4XD 11/18/22 [History Confirmed 11/18/22] omeprazole 20 mg capsule,delayed release 20 mg PO DAILY 11/18/22 [History Confirmed 11/18/22] polyvinyl alcohol 1.4 % eye drops (Artificial Tears (polyvinyl alcohol)) 1 drp EYE-LEFT 4-6XD #15 mL 05/09/23 [Rx] Visit Medications (administered) Generic Name Dose Route Start Last Admin Trade Name Freq PRN Reason Stop Dose Admin Sodium Chloride 1,000 mls @ 150 mls/hr 07/25/23 14:45 07/25/23 19:19 Normal Saline 0.9% IV Infused CONT ALEXANDER Infusion Naloxone HCl 0.2 mg 07/25/23 14:33 07/25/23 14:58 Naloxone 0.4 Mg/Ml Vial IV 0.2 mg Q2MIN PRN Administration Opiate Reversal Exam Vital Signs (past 8 hours): - 07/25/23 14:22 07/25/23 15:01 07/25/23 15:02 Temperature 97.6 F Pulse Rate 82 85 84 Respiratory Rate 16 15 Blood Pressure 136/82 Pulse Oximetry 94 93 93 Oxygen Delivery Method Room Air Fraction of Inspired Oxygen 07/25/23 15:02 07/25/23 15:28 07/25/23 15:30 Temperature Pulse Rate 74 Respiratory Rate 12 Blood Pressure 182/104 H Pulse Oximetry 99 Oxygen Delivery Method Fraction of Inspired Oxygen 40 07/25/23 15:30 07/25/23 15:34 07/25/23 15:34 Temperature Pulse Rate 73 Respiratory Rate 12 Blood Pressure 175/88 H 177/84 H Pulse Oximetry 99 Oxygen Delivery Method BiPAP Fraction of Inspired Oxygen 07/25/23 15:50 07/25/23 15:50 07/25/23 19:34 Temperature Pulse Rate 79 Respiratory Rate 13 Blood Pressure 165/82 H Pulse Oximetry 99 Oxygen Delivery Method BiPAP Fraction of Inspired Oxygen 50 Fraction of Inspired Oxygen 50 Oxygen Delivery Method BiPAP Narrative Exam Narrative: NAD. She is awake and following commands. Objective Labs 07/25/23 15:10 07/25/23 15:10 Labs: Laboratory Results - last 24 hr 07/25/23 07/25/23 07/25/23 14:33 15:10 15:54 WBC 6.5 RBC 4.92 Hgb 15.8 Hct 47.8 H MCV 97.1 MCH 32.2 MCHC 33.1 RDW 16.2 H Plt Count 174 Neut % (Auto) 73.5 Lymph % (Auto) 16.5 L [place] % (Auto) 6.9 Eos % (Auto) 2.1 Baso % (Auto) 1.0 Neut # (Auto) 4800 Lymph # (Auto) 1100 [place] # (Auto) 500 Eos # (Auto) 100 Baso # (Auto) 100 PT 11.6 INR 1.0 APTT 38 H ABG Sample Site Right radial Left radial ABG pH 7.27 L* 7.32 L ABG pCO2 77.5 H* 68.8 H* ABG pO2 68 L 201 H ABG HCO3 36 H 36 H ABG Total CO2 38 H 38 H ABG O2 Saturation 89 L 100 ABG Base Excess 9.0 H 10.0 H FiO2 32 60 Sodium 136 L Potassium 4.2 Chloride 99 Carbon Dioxide 36 H BUN 21 H Creatinine 0.70 Estimated GFR > 60 BUN/Creatinine Ratio 30.0 H Glucose 414 H Lactate 1.0 Calcium 8.5 Total Bilirubin 0.8 AST 26 ALT 26 Alkaline Phosphatase 149 H Ammonia < 9 L Total Creatine Kinase 126 Troponin I 0.044 H NT-Pro-B Natriuret Pep 1800 H Total Protein 6.9 Albumin 4.0 Globulin 2.9 Albumin/Globulin Ratio 1.4 TSH 23.1 H Thyroxine (T4) 6.73 Prolactin 13.8 Urine Color Urine Appearance Urine pH Ur Specific [place] Urine Protein Urine Glucose (UA) Urine Ketones Urine Occult Blood Urine Nitrate Urine Bilirubin Urine Urobilinogen Ur Leukocyte Esterase Urine RBC Urine WBC Ur Squamous Epith Cells Amorphous Sediment Urine Bacteria Ur Culture Indicated? Vol Urine Centrifuged Salicylates < 1.0 U Opiates 300ng/mL cut Ur Oxycodone Screen Urine Methadone Screen Acetaminophen < 10 Ur Barbiturates Screen U Tricyclic Antidepress Ur Phencyclidine Scrn Ur Amphetamines Screen U Methamphetamines Scrn Ur MDMA Scrn (Ecstasy) U Benzodiazepines Scrn Urine Cocaine Screen U Marijuana (THC) Screen Urine Specific [place] Ethyl Alcohol < 10 Ur Creatinine 07/25/23 07/25/23 07/25/23 16:20 16:20 18:36 WBC RBC Hgb Hct MCV MCH MCHC RDW Plt Count Neut % (Auto) Lymph % (Auto) [place] % (Auto) Eos % (Auto) Baso % (Auto) Neut # (Auto) Lymph # (Auto) [place] # (Auto) Eos # (Auto) Baso # (Auto) PT INR APTT ABG Sample Site Right radial ABG pH 7.36 ABG pCO2 66.5 H* ABG pO2 154 H ABG HCO3 37 H ABG Total CO2 39 H ABG O2 Saturation 99 ABG Base Excess 12.0 H FiO2 40 Sodium Potassium Chloride Carbon Dioxide BUN Creatinine Estimated GFR BUN/Creatinine Ratio Glucose Lactate Calcium Total Bilirubin AST ALT Alkaline Phosphatase Ammonia Total Creatine Kinase Troponin I NT-Pro-B Natriuret Pep Total Protein Albumin Globulin Albumin/Globulin Ratio TSH Thyroxine (T4) Prolactin Urine Color Yellow Urine Appearance Clear Urine pH 5.5 Normal Ur Specific [place] 1.015 Urine Protein 2+ H Urine Glucose (UA) 3+ H Urine Ketones Negative Urine Occult Blood Negative Urine Nitrate Negative Urine Bilirubin Negative Urine Urobilinogen 1.0 Ur Leukocyte Esterase Negative Urine RBC None seen Urine WBC None seen Ur Squamous Epith Cells 0-1 /hpf D Amorphous Sediment 1+ Urine Bacteria Few (2-10) H Ur Culture Indicated? Cult not indicated Vol Urine Centrifuged Low vol <1ml unspun A Salicylates U Opiates 300ng/mL cut Negative Ur Oxycodone Screen Negative Urine Methadone Screen Negative Acetaminophen Ur Barbiturates Screen Negative U Tricyclic Antidepress Negative Ur Phencyclidine Scrn Negative Ur Amphetamines Screen Negative U Methamphetamines Scrn Negative Ur MDMA Scrn (Ecstasy) Negative U Benzodiazepines Scrn Negative Urine Cocaine Screen Negative U Marijuana (THC) Screen Negative Urine Specific [place] Normal Ethyl Alcohol Ur Creatinine Normal Assessment & Plan Assessment & Plan narrative: # Acute encephalopathy -- Resolved -- CTH negative -- -Awake and following commands -- PT/OT consultation -- Avoid sedatives # Chronic hypercarbia respiratory failure -- Secondary to volume overload -- Cont diuresis to seek net negative fluid balance -- HOB elevation -- Aspiration precaution -- Goal SpO2 > 88% # KEVAN -- Cont BiPAP -- Need outpatient follow up for sleep study # Bilateral leg pain -- Check venous duplex -- Check XR LE Tele ICU will continue to follow.
--- NOTE | 2023-07-25 20:00 | DI.ECHO.S_ITS ---
[place] [facility] : : [id number] : [place] : : [id number] : : Phone: [phone] Echocardiogram Report + + :Name: ELISSA ARANDA Study Date: 07/26/2023 Height: 63 in : :[facility] ReadingLocation: Weight: 78 lb : : Gender: Female BSA: 1.3 m2 : :: 1965 Age: 57 yrs BP: 138/69 mmHg: :Reason For Study: CONGESTIVE HEART FAILURE : :Ordering Physician: LENORE, : :YANNI CRUMP Performed By: Charanjit Magana : :Referring: YANNI GROVER : + + Interpretation Summary The study quality was technically difficult. Left ventricular ejection fraction is estimated to be 50 +/- 5%. There are no obvious focal wall motion abnormalities noted but poor endocardial definition reduces the sensitivity for the detection of such. There is moderate tricuspid regurgitation. The right ventricular systolic pressure is estimated to be at least 62.7 mmHg based on an estimated right atrial pressure of 15 mm Hg. Compared to the prior echo exam, there has been an increase in TR severity. Consider evaluation for PE Procedure: A two-dimensional transthoracic echocardiogram with color flow and Doppler was performed. Comparison is made with the echocardiogram of 03/05/2023. The study quality was technically difficult. The heart rate ranged between 82-95 bpm during the study. Left Ventricle: The left ventricle is normal in size. Left ventricular wall thickness is mildly increased. Left ventricular ejection fraction is estimated to be 50 +/- 5%. There are no obvious focal wall motion abnormalities noted but poor endocardial definition reduces the sensitivity for the detection of such. Right Ventricle: The right ventricle is normal size. The right ventricular systolic function is normal. Atria: The left atrium is moderately dilated. The right atrium is mildly dilated. The interatrial septum grossly appears intact with no obvious evidence for an atrial septal defect. Mitral Valve: The mitral valve is grossly normal. There is no mitral valve stenosis. There is trace mitral regurgitation. Aortic Valve: The aortic valve is trileaflet. There is no aortic valve stenosis. No aortic regurgitation is present. Tricuspid Valve: The tricuspid valve is not well visualized, but is grossly normal. There is no tricuspid stenosis. There is moderate tricuspid regurgitation. The right ventricular systolic pressure is estimated to be at least 62.7 mmHg based on an estimated right atrial pressure of 15 mm Hg. Compared to the prior echo exam, there has been an increase in TR severity. Pulmonic Valve: The pulmonic valve is not well visualized. There is no pulmonic valvular stenosis. There is no pulmonic valvular regurgitation. Great Vessels: The aortic root is normal size. The dimensions of the ascending aorta are normal. The IVC is dilated (diameter is greater than 2.1 cm) and it collapses less than 50% with a sniff. This suggests a high right atrial pressure of 15 mm Hg. Pericardium/ Pleura There is no pericardial effusion. There is no pleural effusion. MMode/2D Measurements & Calculations LVIDd: 5.3 cm LVOT diam: 2.0 cm LVIDs: 3.8 cm Ao root diam: 3.2 cm FS: 28.8 % asc Aorta Diam: 3.3 cm IVSd: 1.4 cm LVPWd: 1.4 cm LV moses. diameter/BSA (cm/m^2): 4.1 LV sys. diameter/BSA (cm/m^2): 2.9 LA A2 area: 19.6 cm2 RA long axis: 5.3 cm LA A4 area: 25.4 cm2 RA area: 21.0 cm2 LA length (vol): 6.5 cm RA vol: 70.4 ml LA vol: 64.7 ml RA : 54.3 ml/m2 LA vol index: 49.9 ml/m2 IVC diam: 2.6 cm RVD1 (basal): 3.8 cm RVD2 (mid): 2.8 cm TAPSE: 3.0 cm Doppler Measurements & Calculations Ao V2 max: 164.7 cm/sec LVOT Max Jaret: 125.9 cm/sec Ao V2 mean: 121.1 cm/sec LV V1 max P.3 mmHg Ao max P.9 mmHg LV V1 VTI: 26.9 cm Ao mean P.3 mmHg RUBEN(I,D): 2.6 cm2 Ao V2 VTI: 34.1 cm RUBEN(V,D): 2.5 cm2 sev ratio: 0.79 RUBEN indexed to BSA (cm^2/m^2): 2.0 MV E max jaret: 59.6 cm/sec TR max jaret: 345.4 cm/sec MV A max jaret: 89.8 cm/sec TR max P.7 mmHg MV E/A: 0.66 PA V2 max: 104.9 cm/sec Med Peak E' Jaret: 5.0 cm/sec PA V2 mean: 77.1 cm/sec E/E' med: 12.0 PA mean P.6 mmHg Lat Peak E' Jaret: 5.7 cm/sec PA pr(Accel): 17.3 mmHg E/E' lat: 10.4 E/e' average: 11.2 MV dec time: 0.15 sec SV(LVOT): 88.6 ml Reading Physician:10:[id number] AM
--- NOTE | 2023-07-25 20:09 | DI.US.S_ITS ---
PROCEDURE: US PERIPH VENOUS LOW EXTREM BI INDICATIONS: swelling and pain TECHNIQUE: Real-time imaging, as well as color and pulse Doppler interrogation, were performed of the deep veins of both legs from the inguinal ligament to the popliteal fossa, with documentation of the visualized calf veins. COMPARISON: None. FINDINGS: Right: The common femoral, femoral, and popliteal veins are normally compressible, and free of intraluminal thrombus. Color and pulse Doppler demonstrate normal phasic intravascular flow. There is normal augmentation response to distal compression maneuver. Calf veins are not well visualized. Left: The common femoral, femoral, and popliteal veins are normally compressible, and free of intraluminal thrombus. Color and pulse Doppler demonstrate normal phasic intravascular flow. There is normal augmentation response to distal compression maneuver. The calf veins are not well visualized. Incidental left popliteal fossa Desai's cyst measuring 5.3 x 1.2 x 0.9 cm. IMPRESSION: No findings of deep venous thrombosis in either lower extremity. Bilateral calf veins are not well visualized. Approved by: Dulce Ordonez M.D.,Ph.D. on 07/26/2023 at 0:16
--- NOTE | 2023-07-25 20:10 | DI.RAD.S_ITS ---
PROCEDURE: XR ANKLE LT 2V INDICATIONS: pain TECHNIQUE: 2 views of the ankle were acquired. COMPARISON: None. FINDINGS: Limited evaluation of the ankle due to suboptimal positioning related to patient factors. Ankle mortise appears intact. No acute fracture identified within these limitations. Small retrocalcaneal and plantar calcaneal enthesophytes. No tibiotalar joint effusion. Achilles tendon appears normal. IMPRESSION: Suboptimal positioning related to patient factors resulting in limited evaluation of the ankle joint. No acute radiographic abnormality visualized. Approved by: Dulce Ordonez M.D.,Ph.D. on 07/25/2023 at 22:02
--- NOTE | 2023-07-25 20:10 | DI.RAD.S_ITS ---
PROCEDURE: XR ANKLE RT 2V INDICATIONS: pain TECHNIQUE: 2 views of the ankle were acquired. COMPARISON: None. FINDINGS: Bones: No fractures or dislocations. Ankle mortise is normally aligned. No suspicious bony lesions. Soft tissues: No tibiotalar joint effusion. Achilles tendon appears normal. Diffuse soft tissue swelling of the ankle and lower leg. IMPRESSION: No acute bony abnormality or significant effusion. Approved by: Dulce Ordonez M.D.,Ph.D. on 07/25/2023 at 22:06
[2023-07-25] MEDS: INSULIN GLARGINE 100 UNIT/ML 3ML PEN 20 UNIT SUBCUT (21:33)
[2023-07-25] MEDS: INSULIN LISPRO 100 UNIT/ML 3ML VIAL SUBCUT (21:33)
[2023-07-25 23:44] LABS: MRSA (Nasal) PCR NOT DETECTED (Not Detect)
[2023-07-26] VITALS (44 sets, daily range): BP systolic 121–208; BP diastolic 59–139; PULSE 71–110; RESP 9–30; TEMP 27.1–37.2; O2SAT 79–100
[2023-07-26] MEDS: HYDRALAZINE 20 MG/ML VIAL 10 MG IV ×2 (01:36→09:24)
--- NOTE | 2023-07-26 01:43 | PC.NURSE ---
1921--rec'd pt from ED via stretcher; pt incontinent of urine en route to ICU; pt cleaned and wilkinson cath inserted w/ immediate return pale, clear yellow urine; pt on bipap, talking and following commands; Dr Cox spoke w/ pt via monitor in room; orders rec'd and noted
--- NOTE | 2023-07-26 01:47 | PC.NURSE ---
2007--pt refusing bipap at this time; placed on o2/2l/nc as o2 sat dropped to 87%; she is awake and alert; Dr Cox notified; ok to give pt breaks from bipap; 2039--pt sleeping and mouth breathing; placed on oximask; continues to desat with periods of apnea noted; placed back on bipap, which she is tolerating well
--- NOTE | 2023-07-26 01:51 | PC.NURSE ---
0120--pt's b/p 181/83; Dr Ni notified and orders rec'd; hydralazine 10mg iv given; b/p now 140/76
[2023-07-26] MEDS: TRAMADOL 50 MG TABLET PO ×2 (04:30→16:11)
[2023-07-26 04:45] LABS: Add Manual Diff / Slide Review NO; Basophils Absolute Auto 0 /uL (0-100); Basophils Percent Auto 0.4 % (0-2); Eosinophils Absolute Auto 0 /uL (0-450); Eosinophils Percent Auto 0.1 % (2-4); Hematocrit 52.7 % (36-46); Hemoglobin 17.5 g/dL (12.0-16.0); Lymphocytes Absolute Auto 400 /uL (1100-4500); Lymphocytes Percent Auto 7.1 % (25-40); Mean Corpuscular HGB Conc 33.1 % (30-36); Mean Corpuscular Hemoglobin 31.9 PG (26-34); Mean Corpuscular Volume 96.4 fL (80-100); Monocytes Absolute Auto 100 /uL (0-900); Monocytes Percent Auto 2.2 % (3-14); Neutrophils Absolute Auto 5300 /uL (1500-7000); Neutrophils Percent Auto 90.2 % (50-75); Platelet Count 179 X10^3/uL (150-400); Red Blood Cell Count 5.47 X10^6/uL (4.0-5.2); White Blood Cell Count 5.9 X10^3/uL (4.5-11.0)
[2023-07-26 04:48] LABS: BUN Creatinine Ratio 32.2 (6-22); Blood Urea Nitrogen 19 mg/dL (7-17); Calcium 8.8 mg/dL (8.4-10.2); Carbon Dioxide 37 mmol/L (22-32); Chloride 100 mmol/L (98-107); Estimated Glomerular Filt Rate > 60 mL/min (>60); Glucose 359 mg/dL (70-100); HEMOLYSIS 34 (0-50); Potassium 4.3 mmol/L (3.4-5.1); Sodium 138 mmol/L (137-145)
[2023-07-26] MEDS: INSULIN LISPRO 100 UNIT/ML 3ML VIAL SUBCUT ×4 (07:47→21:07)
[2023-07-26] MEDS: FUROSEMIDE 40 MG/4 ML VIAL IV ×2 (07:48→16:37)
[2023-07-26] MEDS: predniSONE 20 MG TABLET 40 MG PO (09:21)
[2023-07-26] MEDS: LEVOTHYROXINE 100 MCG TABLET PO (09:21)
[2023-07-26] MEDS: LEVOTHYROXINE 75 MCG TABLET PO (09:21)
[2023-07-26] MEDS: ENOXAPARIN 40 MG/0.4 ML SYRINGE SUBCUT ×2 (09:22→21:04)
[2023-07-26] MEDS: INSULIN GLARGINE 100 UNIT/ML 3ML PEN 20 UNIT SUBCUT ×2 (09:23→21:04)
--- NOTE | 2023-07-26 13:16 | P.TELICUPN_ITS ---
Subjective Subjective IF CAMERA ACTIVATED, patient seen via real-time interactive audiovisual communication: Camera activated Consent obtained for tele-community nurse care: Yes Patient Location: ICU Provider location (State): [place] Other participants/roles: rn Interval history: pt off bipap imrpoving diuresing well Current Medications Current Medications Medications: Home Medications acetaminophen 325 mg tablet 325 - 650 mg PO Q6HP PRN pain 08/07/18 [History Confirmed 07/25/23] ibuprofen 800 mg tablet 800 mg PO TID 08/07/18 [History Confirmed 07/25/23] ipratropium 20 mcg-albuterol 100 mcg/actuation mist for inhalation (Combivent Respimat) 1 puff inhalation 4XD 11/18/22 [History Confirmed 07/25/23] omeprazole 20 mg capsule,delayed release 20 mg PO DAILY 11/18/22 [History Confirmed 07/25/23] polyvinyl alcohol 1.4 % eye drops (Artificial Tears (polyvinyl alcohol)) 1 drp EYE-LEFT 4-6XD #15 mL 05/09/23 [Rx Confirmed 07/25/23] empagliflozin 10 mg tablet (Jardiance) 10 mg PO DAILY 07/26/23 [History Confirmed 07/26/23] levothyroxine 175 mcg tablet 175 mcg PO DAILY 07/26/23 [History Confirmed 07/26/23] metformin 500 mg tablet 1,000 mg PO BID 07/26/23 [History Confirmed 07/26/23] montelukast 10 mg tablet 10 mg PO DAILY 07/26/23 [History Confirmed 07/26/23] Visit Medications (administered) Generic Name Dose Route Start Last Admin Trade Name Freq PRN Reason Stop Dose Admin Enoxaparin Sodium 40 mg 07/26/23 09:30 07/26/23 09:22 Enoxaparin 40 Mg/0.4 Ml Syringe SUBCUT 40 mg BID ALEXANDER Administration Furosemide 40 mg 07/26/23 08:00 07/26/23 07:48 Furosemide 40 Mg/4 Ml Vial IV 40 mg 0800,1700 ALEXANDER Administration Hydralazine HCl 10 mg 07/26/23 01:24 07/26/23 09:24 Hydralazine 20 Mg/Ml Vial IV 10 mg Q4HR PRN Administration Hypertension Insulin Glargine 20 unit 07/26/23 09:00 07/26/23 09:23 Insulin Glargine 100 Unit/Ml 3ml Pen SUBCUT 20 unit BID ALEXANDER Administration Insulin Human Lispro 0 unit 07/25/23 21:00 07/26/23 11:47 Insulin Lispro 100 Unit/Ml 3ml Vial SUBCUT 7 unit ACHS ALEXANDER Administration Protocol Levothyroxine Sodium 100 mcg 07/26/23 08:40 07/26/23 09:21 Levothyroxine 100 Mcg Tablet PO 100 mcg DAILY@0600 ALEXANDER Administration Levothyroxine Sodium 75 mcg 07/26/23 08:40 07/26/23 09:21 Levothyroxine 75 Mcg Tablet PO 75 mcg DAILY@0600 [facility] Administration Prednisone 40 mg 07/26/23 09:00 07/26/23 09:21 Prednisone 20 Mg Tablet PO 07/30/23 08:59 40 mg DAILY ALEXANDER Administration Tramadol HCl 50 mg 07/25/23 20:11 07/26/23 04:30 Tramadol 50 Mg Tablet PO 50 mg QID PRN Administration Pain, Moderate (4-6) Objective Ventilator Parameters: Ventilator Settings FiO2 32 Labs 07/26/23 03:41 07/26/23 03:41 Labs: Laboratory Results - last 24 hr 07/25/23 07/25/23 07/25/23 14:33 15:10 15:54 WBC 6.5 RBC 4.92 Hgb 15.8 Hct 47.8 H MCV 97.1 MCH 32.2 MCHC 33.1 RDW 16.2 H Plt Count 174 Neut % (Auto) 73.5 Lymph % (Auto) 16.5 L [place] % (Auto) 6.9 Eos % (Auto) 2.1 Baso % (Auto) 1.0 Neut # (Auto) 4800 Lymph # (Auto) 1100 [place] # (Auto) 500 Eos # (Auto) 100 Baso # (Auto) 100 PT 11.6 INR 1.0 APTT 38 H ABG Sample Site Right radial Left radial ABG pH 7.27 L* 7.32 L ABG pCO2 77.5 H* 68.8 H* ABG pO2 68 L 201 H ABG HCO3 36 H 36 H ABG Total CO2 38 H 38 H ABG O2 Saturation 89 L 100 ABG Base Excess 9.0 H 10.0 H FiO2 32 60 Sodium 136 L Potassium 4.2 Chloride 99 Carbon Dioxide 36 H BUN 21 H Creatinine 0.70 Estimated GFR > 60 BUN/Creatinine Ratio 30.0 H Glucose 414 H Lactate 1.0 Calcium 8.5 Total Bilirubin 0.8 AST 26 ALT 26 Alkaline Phosphatase 149 H Ammonia < 9 L Total Creatine Kinase 126 Troponin I 0.044 H NT-Pro-B Natriuret Pep 1800 H Total Protein 6.9 Albumin 4.0 Globulin 2.9 Albumin/Globulin Ratio 1.4 TSH 23.1 H Thyroxine (T4) 6.73 Prolactin 13.8 Urine Color Urine Appearance Urine pH Ur Specific [place] Urine Protein Urine Glucose (UA) Urine Ketones Urine Occult Blood Urine Nitrate Urine Bilirubin Urine Urobilinogen Ur Leukocyte Esterase Urine RBC Urine WBC Ur Squamous Epith Cells Amorphous Sediment Urine Bacteria Ur Culture Indicated? Vol Urine Centrifuged Nasal Screen MRSA (PCR) Salicylates < 1.0 U Opiates 300ng/mL cut Ur Oxycodone Screen Urine Methadone Screen Acetaminophen < 10 Ur Barbiturates Screen U Tricyclic Antidepress Ur Phencyclidine Scrn Ur Amphetamines Screen U Methamphetamines Scrn Ur MDMA Scrn (Ecstasy) U Benzodiazepines Scrn Urine Cocaine Screen U Marijuana (THC) Screen Urine Specific [place] Ethyl Alcohol < 10 Ur Creatinine 07/25/23 07/25/23 07/25/23 16:20 16:20 18:36 WBC RBC Hgb Hct MCV MCH MCHC RDW Plt Count Neut % (Auto) Lymph % (Auto) [place] % (Auto) Eos % (Auto) Baso % (Auto) Neut # (Auto) Lymph # (Auto) [place] # (Auto) Eos # (Auto) Baso # (Auto) PT INR APTT ABG Sample Site Right radial ABG pH 7.36 ABG pCO2 66.5 H* ABG pO2 154 H ABG HCO3 37 H ABG Total CO2 39 H ABG O2 Saturation 99 ABG Base Excess 12.0 H FiO2 40 Sodium Potassium Chloride Carbon Dioxide BUN Creatinine Estimated GFR BUN/Creatinine Ratio Glucose Lactate Calcium Total Bilirubin AST ALT Alkaline Phosphatase Ammonia Total Creatine Kinase Troponin I NT-Pro-B Natriuret Pep Total Protein Albumin Globulin Albumin/Globulin Ratio TSH Thyroxine (T4) Prolactin Urine Color Yellow Urine Appearance Clear Urine pH 5.5 Normal Ur Specific [place] 1.015 Urine Protein 2+ H Urine Glucose (UA) 3+ H Urine Ketones Negative Urine Occult Blood Negative Urine Nitrate Negative Urine Bilirubin Negative Urine Urobilinogen 1.0 Ur Leukocyte Esterase Negative Urine RBC None seen Urine WBC None seen Ur Squamous Epith Cells 0-1 /hpf D Amorphous Sediment 1+ Urine Bacteria Few (2-10) H Ur Culture Indicated? Cult not indicated Vol Urine Centrifuged Low vol <1ml unspun A Nasal Screen MRSA (PCR) Salicylates U Opiates 300ng/mL cut Negative Ur Oxycodone Screen Negative Urine Methadone Screen Negative Acetaminophen Ur Barbiturates Screen Negative U Tricyclic Antidepress Negative Ur Phencyclidine Scrn Negative Ur Amphetamines Screen Negative U Methamphetamines Scrn Negative Ur MDMA Scrn (Ecstasy) Negative U Benzodiazepines Scrn Negative Urine Cocaine Screen Negative U Marijuana (THC) Screen Negative Urine Specific [place]on Normal Ethyl Alcohol Ur Creatinine Normal 07/25/23 07/25/23 07/26/23 19:59 22:30 03:41 WBC 5.9 RBC 5.47 H Hgb 17.5 H Hct 52.7 H MCV 96.4 MCH 31.9 MCHC 33.1 RDW 16.0 H Plt Count 179 Neut % (Auto) 90.2 H Lymph % (Auto) 7.1 L [place] % (Auto) 2.2 L Eos % (Auto) 0.1 L Baso % (Auto) 0.4 Neut # (Auto) 5300 Lymph # (Auto) 400 L [place] # (Auto) 100 Eos # (Auto) 0 Baso # (Auto) 0 PT INR APTT ABG Sample Site ABG pH ABG pCO2 ABG pO2 ABG HCO3 ABG Total CO2 ABG O2 Saturation ABG Base Excess FiO2 Sodium 138 Potassium 4.3 Chloride 100 Carbon Dioxide 37 H BUN 19 H Creatinine 0.59 Estimated GFR > 60 BUN/Creatinine Ratio 32.2 H Glucose 359 H Lactate Calcium 8.8 Total Bilirubin AST ALT Alkaline Phosphatase Ammonia Total Creatine Kinase Troponin I 0.030 NT-Pro-B Natriuret Pep Total Protein Albumin Globulin Albumin/Globulin Ratio TSH Thyroxine (T4) Prolactin Urine Color Urine Appearance Urine pH Ur Specific [place] Urine Protein Urine Glucose (UA) Urine Ketones Urine Occult Blood Urine Nitrate Urine Bilirubin Urine Urobilinogen Ur Leukocyte Esterase Urine RBC Urine WBC Ur Squamous Epith Cells Amorphous Sediment Urine Bacteria Ur Culture Indicated? Vol Urine Centrifuged Nasal Screen MRSA (PCR) Not detected Salicylates U Opiates 300ng/mL cut Ur Oxycodone Screen Urine Methadone Screen Acetaminophen Ur Barbiturates Screen U Tricyclic Antidepress Ur Phencyclidine Scrn Ur Amphetamines Screen U Methamphetamines Scrn Ur MDMA Scrn (Ecstasy) U Benzodiazepines Scrn Urine Cocaine Screen U Marijuana (THC) Screen Urine Specific [place] Ethyl Alcohol Ur Creatinine Exam Vital Signs (past 8 hours): - 07/26/23 06:00 07/26/23 06:00 07/26/23 06:02 Temperature Pulse Rate 79 Respiratory Rate 11 L Blood Pressure 142/67 H Pulse Oximetry 95 92 Oxygen Delivery Method BiPAP Oxygen Flow Rate 2 07/26/23 07:00 07/26/23 07:00 07/26/23 07:00 Temperature Pulse Rate 77 Respiratory Rate 12 Blood Pressure 138/69 Pulse Oximetry 94 Oxygen Delivery Method Nasal Cannula BiPAP Oxygen Flow Rate 07/26/23 08:00 07/26/23 08:00 07/26/23 09:00 Temperature 97.4 F L Pulse Rate 85 81 Respiratory Rate 17 21 Blood Pressure 149/76 H Pulse Oximetry 93 93 Oxygen Delivery Method Oxygen Flow Rate 07/26/23 09:01 07/26/23 09:01 07/26/23 09:06 Temperature Pulse Rate 82 80 Respiratory Rate 22 15 Blood Pressure 137/115 H Pulse Oximetry 89 L 92 Oxygen Delivery Method Oxygen Flow Rate 07/26/23 09:06 07/26/23 09:24 07/26/23 09:36 Temperature Pulse Rate 85 Respiratory Rate Blood Pressure 183/118 H 183/118 H 187/139 H Pulse Oximetry Oxygen Delivery Method Oxygen Flow Rate 07/26/23 09:36 07/26/23 09:41 07/26/23 10:00 Temperature Pulse Rate 77 77 Respiratory Rate 13 21 Blood Pressure Pulse Oximetry 100 100 93 Oxygen Delivery Method Nasal Cannula Oxygen Flow Rate 2 07/26/23 10:02 07/26/23 10:02 07/26/23 10:05 Temperature Pulse Rate 78 78 Respiratory Rate 17 Blood Pressure 140/61 140/61 Pulse Oximetry 93 Oxygen Delivery Method Oxygen Flow Rate 07/26/23 11:00 07/26/23 12:00 07/26/23 12:12 Temperature 98.0 F Pulse Rate 74 71 71 Respiratory Rate 9 L 10 L 14 Blood Pressure Pulse Oximetry 95 96 95 Oxygen Delivery Method Oxygen Flow Rate 07/26/23 12:12 Temperature Pulse Rate Respiratory Rate Blood Pressure 151/81 H Pulse Oximetry Oxygen Delivery Method Oxygen Flow Rate Fraction of Inspired Oxygen 32 Oxygen Delivery Method Nasal Cannula Oxygen Flow Rate 2 Narrative Exam Narrative: NAD symmetric chest rise OOB tochair Quality TeleICU VTE Deep Vein Thrombosis/Pulmonary Embolism Present on Admission: No Assessment & Plan Assessment & Plan narrative: # Acute encephalopathy -- Resolved -- CTH negative -- -Awake and following commands -- PT/OT consultation -- Avoid sedatives # Chronic hypercarbia respiratory failure -- Secondary to volume overload --Diuresing well -- HOB elevation -- Aspiration precaution -- Goal SpO2 > 88% -- trend vbg # KEVAN -- Cont BiPAP -- Need outpatient follow up for sleep study # Bilateral leg pain -- Check venous duplex -- Check XR LE given she is improving with longer intervals con consider switching gene bipap qhs and downgrade. will need vbg for htis, will need bipa qhs indefinitely Tele ICU will continue to follow.
--- NOTE | 2023-07-26 13:49 | DI.CT.S_ITS ---
PROCEDURE: CT ANGIO CHEST PE PROTOCOL INDICATIONS: r/o PE TECHNIQUE: After the administration of intravenous contrast, 2 mm thick sections acquired from the pulmonary apices to the posterior costophrenic angles. 3-dimensional maximum intensity projection (MIP) coronal and sagittal reformats were then acquired through the thorax. For radiation dose reduction, the following was used: automated exposure control, adjustment of mA and/or kV according to patient size. COMPARISON: None. FINDINGS: Image quality: Suboptimal due to motion artifact. Pulmonary arteries: Pulmonary arteries are normal in size, and demonstrate no intraluminal filling defects to suggest central pulmonary embolism. Lower Neck: No enlarged lymph nodes. Thyroid: No thyroid nodules which require sonographic follow up, per consensus guidelines. Axillae: No enlarged lymph nodes. Chest Wall: Unremarkable. Bones: Unremarkable. Lungs and Pleura: Smooth interstitial thickening and bronchial thickening. Mild perihilar ground-glass. Trace pleural effusions. Heart: Heart size is enlarged. No pericardial effusion. Three-vessel coronary calcifications, markedly severe for age. Thoracic Vessels: No aortic aneurysm. Mediastinum and Stephanie: No enlarged lymph nodes. Esophagus: No wall thickening. No hiatal hernia. Upper Abdomen: Cholecystectomy. IMPRESSION: No pulmonary embolus. [id number] pulmonary edema and trace pleural effusions. Marked coronary artery calcifications for age. Correlate with risk factors and advise counseling. Dictated by: Camron Bey M.D. on 07/26/2023 at 14:34 Approved by: Camron Bey M.D. on 07/26/2023 at 14:36
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
--- NOTE | 2023-07-26 14:08 | PC.NURSE ---
[address] for CTA - transported per wc.
--- NOTE | 2023-07-26 15:03 | PM.PN.1 ---
Subjective Subjective Interval history: 57 F admitted with hypercapnic respiratory failure. She had run out of her furosemide recently, was having difficulty getting refills. States now she had been having worsening dyspnea, and LE edema for a few days. Today she is much more alert, off bipap. Intermittently on 2L. She was downgraded to the general floor this afternoon. She denies chest pain. Echocardiogram saw markedly elevated Right sided pressures, recommended PE rule out. CTA performed this afternoon was negative. Glucose markedly elevated still, have increased lantus to 20 U BID. Exam Vital Signs (past 8 hours): - 07/26/23 08:00 07/26/23 08:00 07/26/23 09:00 Temperature 97.4 F L Pulse Rate 85 81 Respiratory Rate 17 21 Blood Pressure 149/76 H Pulse Oximetry 93 93 Oxygen Delivery Method Oxygen Flow Rate 07/26/23 09:01 07/26/23 09:01 07/26/23 09:06 Temperature Pulse Rate 82 80 Respiratory Rate 22 15 Blood Pressure 137/115 H Pulse Oximetry 89 L 92 Oxygen Delivery Method Oxygen Flow Rate 07/26/23 09:06 07/26/23 09:24 07/26/23 09:36 Temperature Pulse Rate 85 Respiratory Rate Blood Pressure 183/118 H 183/118 H 187/139 H Pulse Oximetry Oxygen Delivery Method Oxygen Flow Rate 07/26/23 09:36 07/26/23 09:41 07/26/23 10:00 Temperature Pulse Rate 77 77 Respiratory Rate 13 21 Blood Pressure Pulse Oximetry 100 100 93 Oxygen Delivery Method Nasal Cannula Oxygen Flow Rate 2 07/26/23 10:02 07/26/23 10:02 07/26/23 10:05 Temperature Pulse Rate 78 78 Respiratory Rate 17 Blood Pressure 140/61 140/61 Pulse Oximetry 93 Oxygen Delivery Method Oxygen Flow Rate 07/26/23 11:00 07/26/23 12:00 07/26/23 12:12 Temperature 98.0 F Pulse Rate 74 71 71 Respiratory Rate 9 L 10 L 14 Blood Pressure Pulse Oximetry 95 96 95 Oxygen Delivery Method Oxygen Flow Rate 07/26/23 12:12 Temperature Pulse Rate Respiratory Rate Blood Pressure 151/81 H Pulse Oximetry Oxygen Delivery Method Oxygen Flow Rate Fraction of Inspired Oxygen 32 Oxygen Delivery Method Nasal Cannula Oxygen Flow Rate 2 Narrative Exam Narrative: Gen: ill appearing female, lethargic but more alert than yesterday, able to speak in full sentences. CV: RRR no m/r/g Pulm: bibasilar crackles, poor effort Abd: S NT ND Ext: 1-2+ peripheral LE edema. Objective Labs 07/26/23 03:41 07/26/23 03:41 Labs: Laboratory Results - last 24 hr 07/25/23 07/25/23 07/25/23 14:33 15:10 15:54 WBC 6.5 RBC 4.92 Hgb 15.8 Hct 47.8 H MCV 97.1 MCH 32.2 MCHC 33.1 RDW 16.2 H Plt Count 174 Neut % (Auto) 73.5 Lymph % (Auto) 16.5 L [place] % (Auto) 6.9 Eos % (Auto) 2.1 Baso % (Auto) 1.0 Neut # (Auto) 4800 Lymph # (Auto) 1100 [place] # (Auto) 500 Eos # (Auto) 100 Baso # (Auto) 100 PT 11.6 INR 1.0 APTT 38 H ABG Sample Site Right radial Left radial ABG pH 7.27 L* 7.32 L ABG pCO2 77.5 H* 68.8 H* ABG pO2 68 L 201 H ABG HCO3 36 H 36 H ABG Total CO2 38 H 38 H ABG O2 Saturation 89 L 100 ABG Base Excess 9.0 H 10.0 H FiO2 32 60 Sodium 136 L Potassium 4.2 Chloride 99 Carbon Dioxide 36 H BUN 21 H Creatinine 0.70 Estimated GFR > 60 BUN/Creatinine Ratio 30.0 H Glucose 414 H Lactate 1.0 Calcium 8.5 Total Bilirubin 0.8 AST 26 ALT 26 Alkaline Phosphatase 149 H Ammonia < 9 L Total Creatine Kinase 126 Troponin I 0.044 H NT-Pro-B Natriuret Pep 1800 H Total Protein 6.9 Albumin 4.0 Globulin 2.9 Albumin/Globulin Ratio 1.4 TSH 23.1 H Thyroxine (T4) 6.73 Prolactin 13.8 Urine Color Urine Appearance Urine pH Ur Specific [place] Urine Protein Urine Glucose (UA) Urine Ketones Urine Occult Blood Urine Nitrate Urine Bilirubin Urine Urobilinogen Ur Leukocyte Esterase Urine RBC Urine WBC Ur Squamous Epith Cells Amorphous Sediment Urine Bacteria Ur Culture Indicated? Vol Urine Centrifuged Nasal Screen MRSA (PCR) Salicylates < 1.0 U Opiates 300ng/mL cut Ur Oxycodone Screen Urine Methadone Screen Acetaminophen < 10 Ur Barbiturates Screen U Tricyclic Antidepress Ur Phencyclidine Scrn Ur Amphetamines Screen U Methamphetamines Scrn Ur MDMA Scrn (Ecstasy) U Benzodiazepines Scrn Urine Cocaine Screen U Marijuana (THC) Screen Urine Specific [place] Ethyl Alcohol < 10 Ur Creatinine 07/25/23 07/25/23 07/25/23 16:20 16:20 18:36 WBC RBC Hgb Hct MCV MCH MCHC RDW Plt Count Neut % (Auto) Lymph % (Auto) [place] % (Auto) Eos % (Auto) Baso % (Auto) Neut # (Auto) Lymph # (Auto) [place] # (Auto) Eos # (Auto) Baso # (Auto) PT INR APTT ABG Sample Site Right radial ABG pH 7.36 ABG pCO2 66.5 H* ABG pO2 154 H ABG HCO3 37 H ABG Total CO2 39 H ABG O2 Saturation 99 ABG Base Excess 12.0 H FiO2 40 Sodium Potassium Chloride Carbon Dioxide BUN Creatinine Estimated GFR BUN/Creatinine Ratio Glucose Lactate Calcium Total Bilirubin AST ALT Alkaline Phosphatase Ammonia Total Creatine Kinase Troponin I NT-Pro-B Natriuret Pep Total Protein Albumin Globulin Albumin/Globulin Ratio TSH Thyroxine (T4) Prolactin Urine Color Yellow Urine Appearance Clear Urine pH 5.5 Normal Ur Specific [place] 1.015 Urine Protein 2+ H Urine Glucose (UA) 3+ H Urine Ketones Negative Urine Occult Blood Negative Urine Nitrate Negative Urine Bilirubin Negative Urine Urobilinogen 1.0 Ur Leukocyte Esterase Negative Urine RBC None seen Urine WBC None seen Ur Squamous Epith Cells 0-1 /hpf D Amorphous Sediment 1+ Urine Bacteria Few (2-10) H Ur Culture Indicated? Cult not indicated Vol Urine Centrifuged Low vol <1ml unspun A Nasal Screen MRSA (PCR) Salicylates U Opiates 300ng/mL cut Negative Ur Oxycodone Screen Negative Urine Methadone Screen Negative Acetaminophen Ur Barbiturates Screen Negative U Tricyclic Antidepress Negative Ur Phencyclidine Scrn Negative Ur Amphetamines Screen Negative U Methamphetamines Scrn Negative Ur MDMA Scrn (Ecstasy) Negative U Benzodiazepines Scrn Negative Urine Cocaine Screen Negative U Marijuana (THC) Screen Negative Urine Specific [place] Normal Ethyl Alcohol Ur Creatinine Normal 07/25/23 07/25/23 07/26/23 19:59 22:30 03:41 WBC 5.9 RBC 5.47 H Hgb 17.5 H Hct 52.7 H MCV 96.4 MCH 31.9 MCHC 33.1 RDW 16.0 H Plt Count 179 Neut % (Auto) 90.2 H Lymph % (Auto) 7.1 L [place] % (Auto) 2.2 L Eos % (Auto) 0.1 L Baso % (Auto) 0.4 Neut # (Auto) 5300 Lymph # (Auto) 400 L [place] # (Auto) 100 Eos # (Auto) 0 Baso # (Auto) 0 PT INR APTT ABG Sample Site ABG pH ABG pCO2 ABG pO2 ABG HCO3 ABG Total CO2 ABG O2 Saturation ABG Base Excess FiO2 Sodium 138 Potassium 4.3 Chloride 100 Carbon Dioxide 37 H BUN 19 H Creatinine 0.59 Estimated GFR > 60 BUN/Creatinine Ratio 32.2 H Glucose 359 H Lactate Calcium 8.8 Total Bilirubin AST ALT Alkaline Phosphatase Ammonia Total Creatine Kinase Troponin I 0.030 NT-Pro-B Natriuret Pep Total Protein Albumin Globulin Albumin/Globulin Ratio TSH Thyroxine (T4) Prolactin Urine Color Urine Appearance Urine pH Ur Specific [place] Urine Protein Urine Glucose (UA) Urine Ketones Urine Occult Blood Urine Nitrate Urine Bilirubin Urine Urobilinogen Ur Leukocyte Esterase Urine RBC Urine WBC Ur Squamous Epith Cells Amorphous Sediment Urine Bacteria Ur Culture Indicated? Vol Urine Centrifuged Nasal Screen MRSA (PCR) Not detected Salicylates U Opiates 300ng/mL cut Ur Oxycodone Screen Urine Methadone Screen Acetaminophen Ur Barbiturates Screen U Tricyclic Antidepress Ur Phencyclidine Scrn Ur Amphetamines Screen U Methamphetamines Scrn Ur MDMA Scrn (Ecstasy) U Benzodiazepines Scrn Urine Cocaine Screen U Marijuana (THC) Screen Urine Specific [place] Ethyl Alcohol Ur Creatinine PFSH Medical History Tobacco dependence PTSD (post-traumatic stress disorder) Asthma Fibromyalgia Diabetic neuropathy Uncontrolled diabetes mellitus Methamphetamine abuse Surgical History S/P section S/P jaren Social History household members: other Smoking Status: Current every day smoker alcohol intake: current Assessment & Plan Assessment & Plan narrative: 1. Acute on chronic hypercapnic respiratory failure due to acute diastolic heart failure, possible asthma exacerbation - patient presented with profound lethargy, imaging is consistent with possible new diagnosis of heart failure contributing to her acute hypercapnea. Echo today shows elevated R heart pressures. CTA negative for PE. Has known KEVAN, on labs with metabolic alkalosis and elevated bicarb suggesting chronic hypercapnea. - UA negative, does not appear to be consistent with sepsis or infectious etiology. Blood cultures remain negative today. - diurese with furosemide 40 BID for presumed new diastolic heart failure - now off of BiPAP with diuresis and steroids. - have ordered to continue prednisone for 5 days of steroids. She is on chronic medications for asthma. With hypercapnea more likely related to OHS or untreated KEVAN. - differential of encephalopathy does include toxic encephalopathy though patient denied and UDS is negative, less likely at this time. - echocardiogram with - discussed with tele-customer service engineerisac for regular floor care today. 2. Acute metabolic encephalopathy, improving. - see above in #1, likely due to acidosis / hypercapnea. 3. uncontrolled type 2 diabetes - started lantus 20 U, still high this AM. Increase to 20 U BID. - started sliding scale - check A1c, last was 12% 4. Subclinical hypothyroidism - TSH 23, but normal free t4. Continue home levothyroxine 175 mcg for now. Recommend repeating in a couple of weeks with PCP to consider increasing dose. 5. Acute diastolic heart failure. - initial 0.044 troponin, improved to 0.03. Elevated likely due to demand - continue to diurese with 40 IV BID - echo as noted above. 6. History of Homelessness - patient's previous unstable housing situation and social circumstances are contributing to poor control of her chronic medications related to her acute presentation. Unknown if patient is currently homeless, will discuss when mentation improved. Code: Presumed full, patient unable to discuss surrogate decision maker. None previously were noted but emergency contacts are son and patient's friend DVT: Lovenox daily I have utilized all available immediate resources to obtain, update, or review the patient's current medications. Dispo: Downgrade to regular floor, remains inpatient. Anticipate discharge in 2-3 days. I spent 30 minutes providing critical care management this patient. This excludes time spent in performing separately billed procedures.5v Quality VTE Deep Vein Thrombosis/Pulmonary Embolism Present on Admission: No
[2023-07-26] MEDS: NICOTINE 21 MG PATCH TOP (17:12)
[2023-07-26] MEDS: ALBUTEROL/IPRATROPIUM 3 ML AMPUL INH (19:16)
[2023-07-26] MEDS: DOXYCYCLINE HYCLATE 100 MG TABLET PO (21:04)
[2023-07-27] VITALS (19 sets, daily range): BP systolic 124–139; BP diastolic 65–76; PULSE 70–91; RESP 12–24; TEMP 31–36.8; O2SAT 84–96
--- NOTE | 2023-07-27 00:02 | RT ---
0002 -pt states that she wishes to take a break for 1 hour from BiPAP. She was placed back on 2L NC, SpO2 94%, HR 83 BPM. RN Zofia notified. Will cont. to monitor.
--- NOTE | 2023-07-27 01:08 | RT ---
0108 -pt back on BiPAP at this time.
[2023-07-27 05:30] LABS: Add Manual Diff / Slide Review NO; Basophils Absolute Auto 0 /uL (0-100); Basophils Percent Auto 0.3 % (0-2); Eosinophils Absolute Auto 0 /uL (0-450); Eosinophils Percent Auto 0.4 % (2-4); Hematocrit 45.2 % (36-46); Hemoglobin 15.1 g/dL (12.0-16.0); Lymphocytes Absolute Auto 1000 /uL (1100-4500); Lymphocytes Percent Auto 12.7 % (25-40); Mean Corpuscular HGB Conc 33.5 % (30-36); Mean Corpuscular Hemoglobin 32.4 PG (26-34); Mean Corpuscular Volume 96.8 fL (80-100); Monocytes Absolute Auto 500 /uL (0-900); Monocytes Percent Auto 6.8 % (3-14); Neutrophils Absolute Auto 6300 /uL (1500-7000); Neutrophils Percent Auto 79.8 % (50-75); Platelet Count 190 X10^3/uL (150-400); Red Blood Cell Count 4.67 X10^6/uL (4.0-5.2); Red Cell Distribution Width 15.8 % (11.6-14.8); White Blood Cell Count 7.8 X10^3/uL (4.5-11.0)
[2023-07-27 06:04] LABS: BUN Creatinine Ratio 40.5 (6-22); Blood Urea Nitrogen 30 mg/dL (7-17); Calcium 8.7 mg/dL (8.4-10.2); Chloride 94 mmol/L (98-107); Estimated Glomerular Filt Rate > 60 mL/min (>60); Glucose 388 mg/dL (70-100); HEMOLYSIS 21 (0-50); Potassium 4.1 mmol/L (3.4-5.1); Sodium 136 mmol/L (137-145)
[2023-07-27 06:10] LABS: Carbon Dioxide 38 mmol/L (22-32)
[2023-07-27] MEDS: ALBUTEROL/IPRATROPIUM 3 ML AMPUL INH ×3 (07:31→19:51)
[2023-07-27] MEDS: LEVOTHYROXINE 100 MCG TABLET PO (07:36)
[2023-07-27] MEDS: LEVOTHYROXINE 75 MCG TABLET PO (07:36)
[2023-07-27] MEDS: INSULIN LISPRO 100 UNIT/ML 3ML VIAL SUBCUT ×4 (07:41→21:58)
[2023-07-27] MEDS: FUROSEMIDE 40 MG/4 ML VIAL IV ×2 (08:14→17:36)
[2023-07-27] MEDS: NICOTINE 21 MG PATCH TOP (08:26)
[2023-07-27] MEDS: ENOXAPARIN 40 MG/0.4 ML SYRINGE SUBCUT ×2 (08:27→21:52)
[2023-07-27] MEDS: DOXYCYCLINE HYCLATE 100 MG TABLET PO ×2 (08:27→21:52)
[2023-07-27] MEDS: predniSONE 20 MG TABLET 40 MG PO (08:27)
[2023-07-27] MEDS: SODIUM CHLORIDE 0.9% FLUSH 10 ML IV ×2 (08:28→21:52)
[2023-07-27] MEDS: INSULIN GLARGINE 100 UNIT/ML 3ML PEN 20 UNIT SUBCUT (08:28)
[2023-07-27] MEDS: TRAMADOL 50 MG TABLET PO ×2 (10:08→21:51)
[2023-07-27] MEDS: INSULIN GLARGINE 100 UNIT/ML 3ML PEN SUBCUT (10:09)
[2023-07-27] MEDS: acetaZOLAMIDE 250 MG TABLET PO ×2 (10:09→21:52)
--- NOTE | 2023-07-27 16:36 | P.PN_ITS ---
Subjective Subjective Interval history: 57-year-old female hypoxic respiratory failure in the setting acute on chronic diastolic congestive heart failure and possible asthma exacerbation. Patient reports that she is feeling about the same as yesterday. She states everybody has been worried about her breathing but she is most concerned about her legs. She states that her leg pain is what brought her into the hospital. She had a fall at the [employer] cafe prior to admission. She does not recall the fall but remembers waking up in the ambulance. She states that she has had pain in her bilateral groin, behind her knees, and her external vagina. She states it feels like she did the splits. That pain was not present before her fall. She expresses concern about getting her omeprazole as she states she can not eat before getting it. Her blood sugars have been significantly elevated. Exam Vital Signs (past 8 hours): - 07/27/23 11:27 07/27/23 13:00 07/27/23 15:00 Temperature 98.3 F 97.9 F Pulse Rate 81 86 Respiratory Rate 17 15 Blood Pressure 139/75 126/67 Pulse Oximetry 92 92 92 Oxygen Delivery Method Nasal Cannula Oxygen Flow Rate 2 2 Fraction of Inspired Oxygen 32 SaO2/FiO2 Ratio 339 Oxygen Delivery Method Nasal Cannula Oxygen Flow Rate 2 Narrative Exam Narrative: GEN: Middle-aged female, obese, alert and oriented x 3, NAD HEENT:NC, Face symmetric CHEST: Respiratory excursions symmetric, crackles to bilateral bases, otherwise coarse but CTAB CV: RRR, no M/R/G ABD: Soft, obese, NT/ND, BT present in all 4 quadrants, body habitus limits exam EXTR: warm, well perfused, no C/C, 2 to 3+ bilateral lower extremity edema SKIN: warm and dry, no rash NEURO: Alert and oriented x 3, nonfocal Musculoskeletal: No obvious deformities or abnormalities to the lower extremities, hips, groin or popliteal area, she has a hemangioma noted to the left lateral leg Objective Labs 07/27/23 04:06 07/27/23 04:06 Labs: Laboratory Results - last 24 hr 07/27/23 04:06 WBC 7.8 RBC 4.67 Hgb 15.1 Hct 45.2 MCV 96.8 MCH 32.4 MCHC 33.5 RDW 15.8 H Plt Count 190 Neut % (Auto) 79.8 H Lymph % (Auto) 12.7 L [place] % (Auto) 6.8 Eos % (Auto) 0.4 L Baso % (Auto) 0.3 Neut # (Auto) 6300 Lymph # (Auto) 1000 L [place] # (Auto) 500 Eos # (Auto) 0 Baso # (Auto) 0 Sodium 136 L Potassium 4.1 Chloride 94 L Carbon Dioxide 38 H BUN 30 H Creatinine 0.74 Estimated GFR > 60 BUN/Creatinine Ratio 40.5 H Glucose 388 H Hemoglobin A1c 12.0 H Calcium 8.7 PFSH Medical History Tobacco dependence PTSD (post-traumatic stress disorder) Asthma Fibromyalgia Diabetic neuropathy Uncontrolled diabetes mellitus Methamphetamine abuse Surgical History S/P section S/P jaren Social History household members: other Smoking Status: Current every day smoker alcohol intake: current Assessment & Plan Assessment & Plan narrative: 1. Acute on chronic hypoxic respiratory failure Overall, improving. Continues on furosemide, steroids, doxycycline. Remains on oxygen at 2 liters/minute with nocturnal BiPAP. No recent echocardiogram noted in her chart. 2. Acute on chronic diastolic congestive heart failure Continue furosemide. She does have increasing evidence of contraction alkalosis. Will add Diamox. Monitor labs. 3. Diabetes mellitus type 2, uncontrolled with hyperglycemia Hemoglobin A1c is 12.0. She is currently receiving 20 units of Lantus twice daily. Will increase to high-dose sliding scale protocol. Increase Lantus to 25 units twice daily. Her blood sugars have increased significantly in the past couple of days likely secondary to prednisone. Remains on a carb controlled diet. 4. Subclinical hypothyroidism TSH was 23 with a normal free T4. She remains on her usual dose of levothyroxine. It is likely she has missed doses, particularly in light of her current psychosocial situation. 5. Acute metabolic encephalopathy Resolved 6. Ground level fall prior to admission Suspect her current pain in the bilateral legs, groin, and external vaginal areas all related to how she fell and strain. Will continue working with therapy on increasing her activity level. 7. Unhoused status Patient has had difficulty with getting her medications consistently filled. She was at the [employer] cafe prior to her fall. This is a cafe in [place] that gives unhoused individuals a place to stay during the daytime. They do not provide any sheltered living environment. Code status Full Prophylaxis On Lovenox Disposition Pending. Patient needs ongoing diuresis and ability to tolerate an increased activity level prior to being safe enough for discharge Quality VTE Deep Vein Thrombosis/Pulmonary Embolism Present on Admission: No
[2023-07-27] MEDS: INSULIN GLARGINE 100 UNIT/ML 3ML PEN 25 UNIT SUBCUT (21:59)
[2023-07-28] VITALS (8 sets, daily range): BP systolic 104–153; BP diastolic 54–89; PULSE 68–83; RESP 16–20; TEMP 36.2–36.6; O2SAT 93–99
--- NOTE | 2023-07-28 01:27 | PC.NURSE ---
Addendum entered by Katerina Ortiz R.N. 07/28/23 07:40: Blood sugar recheck 216. Original Note: Blood sugar checked @ bedtime, 481. Insulin given per order. Notified Dr. Kothari and received order to recheck blood sugar in 6 hours.
[2023-07-28] MEDS: LEVOTHYROXINE 75 MCG TABLET PO (05:09)
[2023-07-28] MEDS: LEVOTHYROXINE 100 MCG TABLET PO (05:09)
[2023-07-28 06:57] LABS: Add Manual Diff / Slide Review NO; Basophils Absolute Auto 0 /uL (0-100); Basophils Percent Auto 0.5 % (0-2); Eosinophils Absolute Auto 100 /uL (0-450); Eosinophils Percent Auto 0.8 % (2-4); Hematocrit 46.4 % (36-46); Hemoglobin 15.3 g/dL (12.0-16.0); Lymphocytes Absolute Auto 1600 /uL (1100-4500); Lymphocytes Percent Auto 20.1 % (25-40); Mean Corpuscular HGB Conc 33.1 % (30-36); Mean Corpuscular Hemoglobin 32.2 PG (26-34); Mean Corpuscular Volume 97.4 fL (80-100); Monocytes Absolute Auto 600 /uL (0-900); Neutrophils Absolute Auto 5600 /uL (1500-7000); Neutrophils Percent Auto 70.6 % (50-75); Platelet Count 222 X10^3/uL (150-400); Red Blood Cell Count 4.77 X10^6/uL (4.0-5.2); Red Cell Distribution Width 15.9 % (11.6-14.8); White Blood Cell Count 7.9 X10^3/uL (4.5-11.0)
[2023-07-28 07:11] LABS: BUN Creatinine Ratio 33.3 (6-22); Blood Urea Nitrogen 29 mg/dL (7-17); Calcium 8.6 mg/dL (8.4-10.2); Chloride 96 mmol/L (98-107); Estimated Glomerular Filt Rate > 60 mL/min (>60); Glucose 216 mg/dL (70-100); HEMOLYSIS < 15 (0-50); Potassium 3.9 mmol/L (3.4-5.1); Sodium 135 mmol/L (137-145)
[2023-07-28 07:13] LABS: Carbon Dioxide 40 mmol/L (22-32)
[2023-07-28] MEDS: INSULIN LISPRO 100 UNIT/ML 3ML VIAL SUBCUT ×3 (08:31→17:20)
[2023-07-28] MEDS: INSULIN GLARGINE 100 UNIT/ML 3ML PEN 25 UNIT SUBCUT ×2 (08:32→20:42)
[2023-07-28] MEDS: ALBUTEROL/IPRATROPIUM 3 ML AMPUL INH ×3 (08:36→19:14)
[2023-07-28] MEDS: NICOTINE 21 MG PATCH TOP (08:42)
[2023-07-28] MEDS: FUROSEMIDE 40 MG/4 ML VIAL IV (08:43)
[2023-07-28] MEDS: ENOXAPARIN 40 MG/0.4 ML SYRINGE SUBCUT ×2 (08:43→20:41)
[2023-07-28] MEDS: SODIUM CHLORIDE 0.9% FLUSH 10 ML IV ×2 (08:44→20:42)
--- NOTE | 2023-07-28 12:46 | PC.NURSE ---
@ [id number] SENIOR SUPPORT ANALYST told this RN, while this RN was grabbing pt's meds from [facility], that pt requested her purse to be given to her so SENIOR SUPPORT ANALYST gave pt the purse and pt went through purse and grabbed a bottle of medication and began taking med. SENIOR SUPPORT ANALYST instructed pt to stop taking whatever med and that he will grab RN. Notfied this RN immediately and this RN went to pt's room to find pt with purse, clutching med bottle. This RN asked pt what med she just took and educated pt about medcation safety and hospital policy regarding pt's bringing in their own rxs. Pt stated that she did not want to give me the med but let this RN see what the med name was on the bottle. Pt stated she took a coulple of the tablets, medication was Omeprazole, because her tummy hurt. reeducated pt about policies and stated that she is not allowed to take her own medications without MD okaying. Pt still refused to give meds to RN to give to pharmacy. This RN also stated that she had morning meds to give pt, but pt refused because of stomach ache. This RN took purse away from pt after reeducated pt about hospital policy and medication safety, and also stated that if pt would not comply then a pt behavioral contract has been printed if pt will not uphold behavior and safety protocol. Pt groaned and laid down to sleep more.
--- NOTE | 2023-07-28 13:17 | CM.DPC ---
DCP Cont. Reviewed EMR and team rounds for status updates. Pt is still on 2LO2. Hospitalist believes that this may be her new baseline, and will likely need O2 at discharge. Pt stays the nights in a group home in [place], so O2 will not be permitted there in terms of a tank, and that it can also be used as a weapon by other people in the group home. Called and left a message anyway at [facility] in [place] to clarify their rules. Plan at this time is for pt to d/c back to the group home.
--- NOTE | 2023-07-28 18:10 | PM.PN.1 ---
Subjective Subjective Interval history: Patient sleeping nad not awakened. Bicarb rising to 40 so IV lasix and diamox stopped. ENVIRONMENTAL ENGINEERING AIDE working to see if she can have home O2 at group home. Exam Vital Signs (past 8 hours): - 07/28/23 12:29 Pulse Rate 78 Respiratory Rate 20 Pulse Oximetry 98 Oxygen Delivery Method Nasal Cannula Oxygen Flow Rate 2 Fraction of Inspired Oxygen 28 Fraction of Inspired Oxygen 28 SaO2/FiO2 Ratio 350 Oxygen Delivery Method Nasal Cannula Oxygen Flow Rate 2 Narrative Exam Narrative: GEN: Middle-aged female, obese, alert and oriented x 3, NAD HEENT:NC, Face symmetric CHEST: Respiratory excursions symmetric, crackles to bilateral bases, otherwise coarse but CTAB CV: RRR, no M/R/G ABD: Soft, obese, NT/ND, BT present in all 4 quadrants, body habitus limits exam EXTR: warm, well perfused, no C/C, 2 to 3+ bilateral lower extremity edema SKIN: warm and dry, no rash NEURO: Alert and oriented x 3, nonfocal Musculoskeletal: No obvious deformities or abnormalities to the lower extremities, hips, groin or popliteal area, she has a hemangioma noted to the left lateral leg Objective Labs 07/28/23 06:14 07/28/23 06:14 Labs: Laboratory Results - last 24 hr 07/28/23 06:14 WBC 7.9 RBC 4.77 Hgb 15.3 Hct 46.4 H MCV 97.4 MCH 32.2 MCHC 33.1 RDW 15.9 H Plt Count 222 Neut % (Auto) 70.6 Lymph % (Auto) 20.1 L [place] % (Auto) 8.0 Eos % (Auto) 0.8 L Baso % (Auto) 0.5 Neut # (Auto) 5600 Lymph # (Auto) 1600 [place] # (Auto) 600 Eos # (Auto) 100 Baso # (Auto) 0 Sodium 135 L Potassium 3.9 Chloride 96 L Carbon Dioxide 40 H* BUN 29 H Creatinine 0.87 Estimated GFR > 60 BUN/Creatinine Ratio 33.3 H Glucose 216 H D Calcium 8.6 PFSH Medical History Tobacco dependence PTSD (post-traumatic stress disorder) Asthma Fibromyalgia Diabetic neuropathy Uncontrolled diabetes mellitus Methamphetamine abuse Surgical History S/P section S/P jaren Social History household members: other Smoking Status: Current every day smoker alcohol intake: current Assessment & Plan Assessment & Plan narrative: 1. Acute on chronic hypoxic respiratory failure, with pulm HTN Overall, improving. Continues on steroids, doxycycline. Remains on oxygen at 2 liters/minute with nocturnal BiPAP. Likely secondary to pulm HTN from OHS given her echo shows elevated RVSP of 63. ENVIRONMENTAL ENGINEERING AIDE working on home O2. 2. Acute on chronic diastolic congestive heart failure -now stopped lasix -echo on 07/24 with EF 50-55%, mod TR and RVSP 62.7 3. Diabetes mellitus type 2, uncontrolled with hyperglycemia Hemoglobin A1c is 12.0. She is currently receiving 25 units of Lantus twice daily and high-dose sliding scale protocol. Increase Lantus to 25 units twice daily. Remains on a carb controlled diet. 4. Subclinical hypothyroidism TSH was 23 with a normal free T4. She remains on her usual dose of levothyroxine. It is likely she has missed doses, particularly in light of her current psychosocial situation. 5. Acute metabolic encephalopathy Resolved 6. Ground level fall prior to admission Suspect her current pain in the bilateral legs, groin, and external vaginal areas all related to how she fell and strain. Will continue working with therapy on increasing her activity level. 7. Unhoused status Patient has had difficulty with getting her medications consistently filled. She was at the [facility] [facility] [employer] cafe prior to her fall. This is a cafe in [place] that gives unhoused individuals a place to stay during the daytime. They do not provide any sheltered living environment. Code status Full Prophylaxis On Lovenox Disposition DC likely on 07/28. Quality VTE Deep Vein Thrombosis/Pulmonary Embolism Present on Admission: No
[2023-07-28] MEDS: DOXYCYCLINE HYCLATE 100 MG TABLET PO (20:41)
[2023-07-29 04:39] VITALS: BP 129/75; PULSE 79; RESP 18; TEMP 36.6; O2SAT 97
[2023-07-29] MEDS: LEVOTHYROXINE 100 MCG TABLET PO (05:07)
[2023-07-29] MEDS: LEVOTHYROXINE 75 MCG TABLET PO (05:07)
[2023-07-29 07:49] VITALS: O2SAT 97
[2023-07-29] MEDS: TRAMADOL 50 MG TABLET PO (08:19)
[2023-07-29] MEDS: predniSONE 20 MG TABLET 40 MG PO (08:19)
[2023-07-29] MEDS: PANTOPRAZOLE DR 20 MG TABLET PO (08:19)
[2023-07-29] MEDS: DOXYCYCLINE HYCLATE 100 MG TABLET PO (08:20)
[2023-07-29] MEDS: INSULIN GLARGINE 100 UNIT/ML 3ML PEN 25 UNIT SUBCUT (08:20)
[2023-07-29] MEDS: ENOXAPARIN 40 MG/0.4 ML SYRINGE SUBCUT (08:20)
[2023-07-29] MEDS: NICOTINE 21 MG PATCH TOP (08:20)
[2023-07-29] MEDS: SODIUM CHLORIDE 0.9% FLUSH 10 ML IV (08:21)
--- NOTE | 2023-07-29 08:52 | DI.RAD.S_ITS ---
PROCEDURE: XR CHEST 1V INDICATIONS: continued O2 requirement TECHNIQUE: One view of the chest was acquired. COMPARISON: [facility], CT, CT ANGIO CHEST PE PROTOCOL, 07/26/2023, 14:11. [facility], CR, XR CHEST 1V, 07/25/2023, 15:46. FINDINGS: Surgical changes and devices: None. Lungs and pleura: Mild increased vascularity. Mediastinum: Mediastinal contours appear normal. Heart size is enlarged. Bones and chest wall: No suspicious bony lesions. Overlying soft tissues appear unremarkable. IMPRESSION: Cardiomegaly with increased vascularity consistent with edema. Overall appearance is similar although slightly less prominent when compared to prior exam. Dictated by: Adina Hernandez M.D. on 07/29/2023 at 15:59 Approved by: Adina Hernandez M.D. on 07/29/2023 at 16:00
[2023-07-29 09:37] VITALS: BP 125/71; PULSE 72; RESP 20; O2SAT 93
[2023-07-29 11:36] LABS: Osmolality, Serum 310 mOsmol/kg (275-295)
--- NOTE | 2023-07-29 11:50 | PT.IIE ---
Current Diagnoses Acute and chronic respiratory failure with hypoxia (07/25/23) Surgical History (Last Reviewed 07/25/23 @ 21:35 by Ryan Mathew DO) S/P section S/P jaren Medical History (Last Reviewed 07/25/23 @ 21:35 by Ryan Mathew DO) Asthma Diabetic neuropathy Fibromyalgia Methamphetamine abuse PTSD (post-traumatic stress disorder) Tobacco dependence Uncontrolled diabetes mellitus Physical Therapy Inpatient Evaluation/Re-Eval M1 PT/OT-IP Prior Functional Status Start: 07/29/23 10:30 Freq: NEEDED Status: Active Protocol: Document 07/29/23 11:02 MB (Rec: 07/29/23 11:50 MB [id number]) Medical Review Prior Functional Status Medical History Reviewed Yes Diet/Fluid Consistency Regular Communication WNLs Mobility and Gait Pt gait trained with rollator Activities of Daily Living and IADL's Unclear, likely mod I Prior Functional Level (Other details) Pt is unhoused and has been staying at [facility] in [place] Social History Household Members other Living Arrangements Homeless Home Equipment Four Wheel Walker Additional Social History Comment Pt is not working and she sleeps on bottom bunk at half-way M2 PT-IP Current Condition Start: 07/29/23 10:30 Freq: NEEDED Status: Active Protocol: Document 07/29/23 11:02 MB (Rec: 07/29/23 11:50 MB [id number]) Physical Therapy Current Condition Current Condition Evaluation Date 07/29/23 Treatment Diagnosis Fall from chair, B leg pain and decreased oxygenation M3 PT-IP Subjective Start: 07/29/23 10:30 Freq: NEEDED Status: Active Protocol: Document 07/29/23 11:02 MB (Rec: 07/29/23 11:50 MB [id number]) Subjective Physical Therapy Visit Type Type Initial Evaluation Visit Start Time 11:02 Visit Stop Time 11:35 Number of PASTOR Visits 0 Physical Therapy Visit Comments Patient Comments Am I going to be on camera? Why do I need to get up now? Therapy Pain Assessment Pain When Pain Assessed At Rest Pain Present Pain Present Pain Reported Location B inner thighs, worse on right Intensity 8 Scale Used Numeric (0 - 10) M4 PT-IP Mobility and Gait Start: 07/29/23 10:30 Freq: NEEDED Status: Active Protocol: Document 07/29/23 11:02 MB (Rec: 07/29/23 11:50 MB [id number]) PT-Bed Mobility Assessment Supine to Sit Supine to Sit Standby Assistance,1 Person Assistance,Head of Bed Elevated,Bedrails Scooting Scooting to Edge of Bed Standby Assistance Scooting Up and Down in Bed Standby Assistance PT-Transfer Assessment Sit to and From Stand Sit to and from Stand Contact Guard Assistance,1 Person Assistance,Use of Upper Extremities Equipment Transfer Assistive Device Gait Belt,4 Wheeled Walker Orthotic/Prosthetic Devices or Brace: No Transfers Transfer Destination Chair,Toilet Transfer Technique Ambulation Transfer Ability Level of Assist Contact Guard Assistance,1 Person Assistance,Use of Upper Extremities Comments Mobility Comments Pt tends to unlock her rollator to stand. She then turns to right to reach for bed rail to stand d/t reports of leg pain. Pt with frequent c/o B leg pain with moving and she states she cannot put on socks despite cues, HOB increased and being able to reach close to feet. SBA and cues for toileting and hygiene after toileting. Gait Assessment Gait Gait Assistance Required: Standby Assistance Distance (Feet) 70 Able to Maintain Weight Bearing Status Yes During Gait Assistive Devices Assistive Device Gait Belt,Front Wheeled Walker Orthotic/Prosthetic Devices or Brace: No Gait Deviations General Gait Pattern Antalgic,Decreased Stride Length,Decreased Feet Clearance,Flexed Trunk,Wide Based Gait Factors Limiting Gait Function Factors Limiting Gait Function Decreased Activity Tolerance, Difficulty Following Directions,Pain,Poor Safety Awareness Comments Gait Comments Pt con't to close eyes with gait and she stops frequently. O2 sats on RA with gait are 96% and pt does not have any BRAUN. Pt gait trains 15'x1, 70' x1, 60'x1 with rollator and frequent stops PT-Balance Assessment Sitting Balance and Reactions Static Sitting Balance Ability Good Dynamic Sitting Balance Ability Good Standing Balance and Reactions Static Standing Balance Ability Good Dynamic Standing Balance Ability Good Device Used Rollator M5 PT-IP Objective Assessments Start: 07/29/23 10:30 Freq: NEEDED Status: Active Protocol: Document 07/29/23 11:02 MB (Rec: 07/29/23 11:50 MB [id number]) Orientation Orientation/Cognition Level of Alertness Alert Orientation Name,Place,Situation Language Function Ability No Deficits Noted Safety Awareness Decreased Safety Awareness Memory Description No Deficits Noted Gross Range of Motion Upper Extremity ROM Assessment Within Functional Limits Lower Extremity ROM Assessment Within Functional Limits Strength Comments Strength Comments Deferred MMT d/t c/o pain M6 PT-IP Treatment Start: 07/29/23 10:30 Freq: NEEDED Status: Active Protocol: Document 07/29/23 11:02 MB (Rec: 07/29/23 11:50 MB [id number]) Physical Therapy Treatment Education Education Provided Safety M7 PT-IP Assessment and Plan Start: 07/29/23 10:30 Freq: NEEDED Status: Active Protocol: Document 07/29/23 11:02 MB (Rec: 07/29/23 11:50 MB [id number]) PT Summary Assessment and Plan Potential Rehabilitation Potential Fair Status of Condition at Evaluation Evolving Summary Impairments Pain,Strength,Balance,Bed Mobility,Transfers,Gait, Activity Tolerance Progress Towards Goals Slow Progress due to Pain Assessment Summary Pt is a 57 y/o female reporting increased B leg pain this morning and this is a barrier to donning socks, transfers and gait. There are some challenges with safety awareness and participation as well and pt closes eyes during gait. She has no BRAUN and O2 sats are 96% on RA with gait. Goals Bed Mobility Goal Independent Transfer Goal Independent,Four Wheeled Walker Gait Goal Independent,Four Wheel Walker Gait Distance 100 Days to Meet Goals 5 Frequency of Treatment Frequency Of Treatment Once a Day Treatment Plan Physical Therapy Treatment Plan Bed Mobility Training,Transfer Training,Gait Training, Therapeutic Exercise,Balance Retraining,Discharge Planning Weight Bearing Status Weight Bearing Status Weight Bear as Tolerated Recommendations To Nursing Amount of Assist Needed 1 Person Assist Discharge Recommendations Other Discharge Recommendations Unsure disposition status d/t pt was prior unhoused in [place] Transportation Needs at Discharge Private Vehicle
[2023-07-29] MEDS: INSULIN LISPRO 100 UNIT/ML 3ML VIAL SUBCUT (12:02)
[2023-07-29 12:58] VITALS: PULSE 78; RESP 18; O2SAT 93
[2023-07-29] MEDS: ALBUTEROL/IPRATROPIUM 3 ML AMPUL INH (12:58)
--- NOTE | 2023-07-29 13:02 | P.DS_ITS ---
History of Present Illness History of Present Illness Chief complaint: Fall from chair to carpet,nec/shoulder pain Narrative: Patient is unable to participate in history portion, largely obtained from ER provider as patient is lethargic on BiPAP currently. She is arousable, answers some questions but falls asleep easily. Mirta Escalante is a 53-year-old homeless female with diabetes type 2, posttraumatic stress disorder, asthma, fibromyalgia, diabetic neuropathy, KEVAN who presented initially after a fall from a chair. She fell forward, and complained of pain everywhere in the emergency room. She was hypersomnolent and denied any drug use or ingestions to the ER provider. She was noted to be hypercapnic on labs with PCO2 of 77.5. She was started on bipap with slow improvement. CXR showed cardiomegaly and probable CHF. She was given 40 mg of IV lasix. Glucose was 414, with prior admission patient was on 20 U BID lantus, asked to give 20 U of lantus. Initial troponin 0.044, without ischemic changes on EKG. ProBNP was 1800. TSH was 23. She initially improved but remained lethargic, and PCO2 had improved and pH had returned to 7.36 with PCO2 of 66. With continued lethargy, patient admitted on bipap to the ICU for continued management of multifactorial acute on chronic hypercapnic respiratory failure. Discharge Providers Provider Date of admission: 07/25/23 18:35 Discharge Date: 07/29/23 Consults: 07/25/23 14:34 Consult to [employer] PRINTER OPERATOR - [employer]er [employer] Filling Stat Comment: 07/28/23 18:15 Consult to Physical Therapy Evaluate & Treat Comment: Physician Instructions: Evaluate and Treat Discharge provider: Gilles Leos DO Summary Hospital Course Discharge Diagnosis: 1. Acute on chronic hypoxic respiratory failure, with pulm HTN and possible PNA Overall, improving. Continues on steroids, doxycycline. Able to wean off 2L O2 and continues with nocturnal BiPAP. Likely secondary to pulm HTN from OHS given her echo shows elevated RVSP of 63. Continue doxy BID x5 days. 2. Acute on chronic diastolic congestive heart failure -now stopped lasix -echo on 07/24 with EF 50-55%, mod TR and RVSP 62.7 3. Diabetes mellitus type 2, uncontrolled with hyperglycemia Hemoglobin A1c is 12.0. She is currently receiving 25 units of Lantus twice daily and high-dose sliding scale protocol. Remains on a carb controlled diet. 4. Subclinical hypothyroidism TSH was 23 with a normal free T4. She remains on her usual dose of levothyroxine. It is likely she has missed doses, particularly in light of her current psychosocial situation. 5. Acute metabolic encephalopathy Resolved 6. Ground level fall prior to admission Suspect her current pain in the bilateral legs, groin, and external vaginal areas all related to how she fell and strain. Will continue working with therapy on increasing her activity level. 7. Unhoused status Patient has had difficulty with getting her medications consistently filled. She was at the [facility] prior to her fall. This is a cafe in [place] that gives unhoused individuals a place to stay during the daytime. They do not provide any sheltered living environment. Hospital Course: [facility]. Found to be hypoxic with possible PNA vs diastolic CHF with pulm HTN. Given po doxy and IV lasix. Was able to wean off 2L to room air. Discharged with hotel voucher. Exam Vital Signs (past 8 hours): - 07/29/23 07:00 07/29/23 07:49 07/29/23 09:37 Pulse Rate 72 Respiratory Rate 20 Blood Pressure 125/71 Pulse Oximetry 97 93 Oxygen Delivery Method Nasal Cannula Oximask Nasal Cannula Oxygen Flow Rate 2 2 Fraction of Inspired Oxygen 28 SaO2/FiO2 Ratio 350 Oxygen Delivery Method Nasal Cannula Oxygen Flow Rate 2 Narrative Exam Narrative: GEN: Middle-aged female, obese, alert and oriented x 3, NAD HEENT:NC, Face symmetric CHEST: Respiratory excursions symmetric, crackles to bilateral bases, otherwise coarse but CTAB CV: RRR, no M/R/G ABD: Soft, obese, NT/ND, BT present in all 4 quadrants, body habitus limits exam EXTR: warm, well perfused, no C/C, 2 to 3+ bilateral lower extremity edema SKIN: warm and dry, no rash NEURO: Alert and oriented x 3, nonfocal Musculoskeletal: No obvious deformities or abnormalities to the lower extremities, hips, groin or popliteal area, she has a hemangioma noted to the left lateral leg Objective Labs 07/28/23 06:14 07/28/23 06:14 Labs: Laboratory Results - last 24 hr 07/25/23 15:10 Serum Osmolality 310 H [facility] Medical History Tobacco dependence PTSD (post-traumatic stress disorder) Asthma Fibromyalgia Diabetic neuropathy Uncontrolled diabetes mellitus Methamphetamine abuse Surgical History S/P section S/P jaren Social History household members: other Smoking Status: Current every day smoker alcohol intake: current Discharge Plan Discharge Plan Patient Disposition: Home Provider Discharge Comment: I've put you on lasix to prevent fluid from building into your lungs. Please finish 2 days of antibiotics and steroids. Discharge orders & Medications Prescriptions: New prednisone 20 mg Tablet 40 mg PO DAILY 2 Days Qty: 4 0RF Rx Instructions: start on 07/29 doxycycline hyclate 100 mg Tablet 100 mg PO BID 2 Days Qty: 4 0RF Rx Instructions: start evening of 07/28 furosemide [Lasix] 20 mg tablet 20 mg PO DAILY Qty: 30 0RF Continued ibuprofen 800 mg tablet 800 mg PO TID acetaminophen 325 MG tablet 325 - 650 mg PO Q6HP PRN (Reason: pain) omeprazole 20 mg capsule,delayed release(DR/EC) 20 mg PO DAILY Combivent Respimat 20-100 mcg/actuation mist 1 puff inhalation 4XD polyvinyl alcohol [Artificial Tears (polyvin alc)] 1.4 % drops 1 drp EYE-LEFT 4-6XD Qty: 15 0RF levothyroxine 175 mcg tablet 175 mcg PO DAILY metformin 500 mg tablet 1,000 mg PO BID montelukast 10 mg tablet 10 mg PO DAILY Jardiance 10 mg tablet 10 mg PO DAILY Visit Report/Discharge Packet Instructions: DI for Heart Failure, How to Prevent Falls Stand Alone Forms: Patient Portal/API, Stroke Signs & Symptoms Quality VTE Deep Vein Thrombosis/Pulmonary Embolism Present on Admission: No
--- NOTE | 2023-07-29 14:26 | CM.DPC ---
Addendum entered by SYLVIA Varela 07/29/23 15:43: ADD: Per Susan at [facility], she was able to get two nights at [facility] for pt starting today through Sat. Susan then called pt who is aware. To reduce risk of pt not discharging and remaining in the hospital, Taxi Voucher with [employer] utilized for going to [facility] and then to [facility] with pickup at ED at 1615. RN and SILVERWARE ETCHER aware and will have pt at the ED entrance. [employer] quoted $8 and taxi voucher completed and SILVERWARE ETCHER aware copy goes to dump truck driver and SW placed original in CM Chief Pharmacist folder for review. BF Addendum entered by SYLVIA Varela 07/29/23 15:14: ADD: Return call from Susan at [facility] gathering discharge information on pt to confirm if she would be a good fit for Motel Program and also that their reserved rooms are currently full but she will call now to try to get a two night stay at a local motel and will call back to either this SW or to the unix analyst if after SW shift. BF Original Note: DCP Discharge Per MD, pt worked with PT and RT and was able to be weaned to room air and home oxygen no longer needed at discharge and pt medically stable to d/c today. Pt requested SW to help with motel voucher. SW called [facility] Motel Voucher line and left msg regarding pt discharge and request for voucher. CHEMO met bedside with pt who is very drowsy and updated her on motel voucher program and pt aware of Susan who works at [facility] as pt had called and left a msg last week to get connected with services through [facility] but had not heard back. Pt confirms she has a working cell phone but wants to use room phone and SW assisted her with calling the [facility] motel voucher line and left msg. CHEMO updated RN that might take a couple hours for pt to get a call back and if needed and after hours could utilize either Medicaid Transport or [employer] Taxi voucher to get pt to a motel. Plan: Patient to discharge today via taxi (Medicaid vs [employer] taxi voucher) and outpt f/u. SYLVIA Varela
== END 2023-07-29 16:15 | disposition home or self-care (01) | DRG 133 ==
LOC: ED 16:14 → AC 18:36 → ICU 19:23 → AC 07-27 09:47
PROVIDERS: Internal Medicine Pulmonary Disease; Admitting Provider Internal Medicine; Emergency Provider Emergency Medicine; Referring Provider Emergency Medicine; Visit Provider Internal Medicine
DX: J96.21 Acute and chronic respiratory failure with hypoxia (principal); I50.33 Acute on chronic diastolic (congestive) heart failure; G93.41 Metabolic encephalopathy; Z59.01 Sheltered homelessness; F43.10 Post-traumatic stress disorder, unspecified; E11.40 Type 2 diabetes mellitus with diabetic neuropathy, unspecified; M79.7 Fibromyalgia; G47.33 Obstructive sleep apnea (adult) (pediatric); E03.9 Hypothyroidism, unspecified; E11.65 Type 2 diabetes mellitus with hyperglycemia; I27.20 Pulmonary hypertension, unspecified; J18.9 Pneumonia, unspecified organism
CPT/HCPCS: 36415; 36600; 70450; 71045; 71275; 72125; 73600; 80048; 80053; 80305; 80320; 80329; 81001; 82140; 82550; 82805; 82962; 83036; 83605; 83880; 83930; 84146; 84436; 84443; 84484; 85025; 85610; 85730; 87040; 87797; 93005; 93010; 93306; 93970; 94640; 94660; 94760; 94762; 96361; 96374; 96375; 97161; 97530; 99285; 99291; G0480; J0360; J1650; J1815; J1940; J2310; J2919; Q9967

== ENCOUNTER 2024-04-22 15:43 | Emergency (ER) | payer OTHER, SELFPAY ==
[2023-07-25 20:05] VITALS: BMI 51.2
[2023-07-27 06:29] VITALS: PULSE 70; RESP 15; O2SAT 96
[2024-04-22 15:45] VITALS: BP 124/57; PULSE 83; RESP 20; TEMP 37.1; O2SAT 100; BMI 42.4
--- NOTE | 2024-04-22 18:08 | ED_ITS ---
HPI - Skin/Abscess/Foreign Bdy <Josette Jennings PA-C - Last Filed: 04/22/24 19:25> General Chief complaint: Skin/Abscess/Foreign Body Stated complaint: abcess at throat getting worse Time Seen by Provider: 04/22/24 18:08 Source: patient Mode of arrival: Ambulatory Limitations: no limitations History of Present Illness HPI narrative: Ms. Escalante is a pleasant 58-year-old female with a past medical history of CHF, necrotizing soft tissue infection, type 2 diabetes, asthma, KEVAN, GERD, history of substance use who presents to the emergency department for right lower jaw abscess x8 days. Patient states that in the past she has had an abscess on her chin that is drained spontaneously however about 8 days ago she developed an abscess to the right of this area. She saw her primary care doctor on who advised that she follow up with a dentist. She saw a dentist on Saturday who prescribed her azithromycin however she reports that the swelling is spreading and she now has pain spreading into her neck. She denies fevers but reports feeling generalized fatigue over the last few days. She is still able to speak, tolerate her own secretions, swallow. Reports a history to penicillins which is why her dentist put her on azithromycin. Patient states she has been sober from illicit drugs for the last year. She does smoke cigarettes. Related Data Home Medications Medication Instructions Recorded Confirmed acetaminophen 325 mg tablet 325 - 650 mg PO Q6HP PRN pain 08/07/18 07/25/23 ibuprofen 800 mg tablet 800 mg PO TID 08/07/18 07/25/23 ipratropium 20 mcg-albuterol 100 1 puff inhalation 4XD 11/18/22 07/25/23 mcg/actuation mist for inhalation (Combivent Respimat) omeprazole 20 mg capsule,delayed 20 mg PO DAILY 11/18/22 07/25/23 release empagliflozin 10 mg tablet 10 mg PO DAILY 07/26/23 07/26/23 (Jardiance) levothyroxine 175 mcg tablet 175 mcg PO DAILY 07/26/23 07/26/23 metformin 500 mg tablet 1,000 mg PO BID 07/26/23 07/26/23 montelukast 10 mg tablet 10 mg PO DAILY 07/26/23 07/26/23 Previous Rx's Medication Instructions Recorded polyvinyl alcohol 1.4 % eye drops 1 drp EYE-LEFT 4-6XD #15 mL 05/09/23 (Artificial Tears (polyvinyl alcohol)) furosemide 20 mg tablet (Lasix) 20 mg PO DAILY #30 tabs 07/29/23 clindamycin HCl 300 mg capsule 300 mg PO Q6H 7 days #28 caps 04/22/24 Allergies Allergy/AdvReac Type Severity Reaction Status Date / Time Penicillins [PENICILLINS] Allergy Severe Anaphylaxis Verified 07/25/23 14:26 codeine [CODEINE] Allergy Unknown Verified 07/25/23 14:26 fluconazole [From DIFLUCAN] Allergy Unknown Verified 07/25/23 14:26 morphine [MORPHINE] Allergy Unknown Verified 07/25/23 14:26 All Opiates per patient Allergy Uncoded 10/05/19 20:33 Review of Systems <Josette Jennings PA-C - Last Filed: 04/22/24 19:25> Review of Systems ROS Unobtainable: All systems reviewed & are unremarkable except as noted in HPI and below Patient History <Josette Jennings PA-C - Last Filed: 04/22/24 19:25> Medical History Tobacco dependence PTSD (post-traumatic stress disorder) Asthma Fibromyalgia Diabetic neuropathy Uncontrolled diabetes mellitus Methamphetamine abuse Surgical History S/P section S/P jaren Social History household members: other Smoking Status: Current every day smoker alcohol intake: current Smoking Status: Current every day smoker tobacco type: cigarettes alcohol intake frequency: holidays/special occasions only Exam <Josette Jennings PA-C - Last Filed: 04/22/24 19:25> Narrative Exam Narrative: GENERAL: 58 year old patient appears older than stated age. Overweight patient, in no acute distress. HEAD: Atraumatic. Normocephalic. EYES: No scleral icterus. No injection or drainage. ENT: On the right lower mandibular region, there is a 2 cm round erythematous well-circumscribed tender area of swelling consistent with a cyst or abscess. To the left of this lesion is a chronic scabbing scar area. She does have surrounding tenderness as well. There is no surrounding erythema or streaking erythema. The submandibular area is tender but is not indurated. Nose without bleeding, purulent drainage. Throat without erythema, tonsillar hypertrophy or exudate. Airway patent. Floor of the mouth is soft. Chronic poor dentition but no intraoral palpable dental abscess. NECK: Trachea midline. Cervical ROM intact. CARDIOVASCULAR: Regular rate and rhythm. RESPIRATORY: ?Nonlabored respirations. ?Speaking in clear, full sentences. ?Clear to auscultation. Breath sounds equal bilaterally. No wheezes, rales, or rhonchi. ? NEURO: AOx3. ?Clear speech. ?Moves all 4 extremities appropriately. SKIN: Lesion on right lower jaw described above. Initial Vital Signs Initial Vital Signs: Vital Signs Temperature 98.7 F 04/22/24 15:45 Pulse Rate 83 04/22/24 15:45 Respiratory Rate 20 04/22/24 15:45 Blood Pressure 124/57 L 04/22/24 15:45 Pulse Oximetry 100 04/22/24 15:45 Oxygen Delivery Method Room Air 04/22/24 15:45 <Kiki Nuñez DO - Last Filed: 04/22/24 22:38> Initial Vital Signs Initial Vital Signs: Vital Signs Temperature 98.7 F 04/22/24 15:45 Pulse Rate 83 04/22/24 15:45 Respiratory Rate 20 04/22/24 15:45 Blood Pressure 124/57 L 04/22/24 15:45 Pulse Oximetry 100 04/22/24 15:45 Oxygen Delivery Method Room Air 04/22/24 15:45 Procedures <Kiki Nuñez DO - Last Filed: 04/22/24 22:38> Abscess I/D I&D #1: Site: face Side (if applicable): right (chin) Sedation/analgesia: none Local Anesthetic: lidocaine 1% Amount of anesthesia used (mL): 0.5 Technique: needle aspiration and incised with #11 blade Amount of fluid expressed (mL): 4 Irrigation: No Packing used?: none Course <Josette Jennings PA-C - Last Filed: 04/22/24 19:25> Orders Ordered: ED Orders 04/22/24 18:16 CT soft tissue neck w con Stat 04/22/24 18:20 CBC Auto Diff [Complete Blood Count AUTO DIFF] Stat 04/22/24 18:46 CMP [Comprehensive Metabolic Panel] Stat Discontinued Medications Clindamycin HCl (Clindamycin 150 Mg Capsule) 450 mg PO NOW ONE Stop: 04/22/24 19:00 Last Admin: 04/22/24 19:48 Dose: Not Given Documented By: Sodium Chloride (Normal Saline 0.9%) 1,000 mls @ 1,000 mls/hr IV BOLUS ONE Stop: 04/22/24 19:15 Last Admin: 04/22/24 18:24 Dose: Not Given Documented By: JOHNNY Ketorolac Tromethamine (Ketorolac 30 Mg/Ml Vial) 15 mg IV NOW ONE Stop: 04/22/24 18:17 Last Admin: 04/22/24 18:27 Dose: 15 mg Documented By: JOHNNY Lidocaine/Prilocaine (Lidocaine/Prilocaine 5 Gm) 5 gm TOP NOW ONE Stop: 04/22/24 20:29 Last Admin: 04/22/24 20:35 Dose: 5 gm Documented By: Vital Signs Vital signs: Vital Signs - 8 hr 04/22/24 15:45 Temperature 98.7 F Pulse Rate 83 Respiratory Rate 20 Blood Pressure 124/57 L Pulse Oximetry 100 Oxygen Delivery Method Room Air <Kiki Nuñez, - Last Filed: 04/22/24 22:38> Orders Ordered: ED Orders 04/22/24 18:16 CT soft tissue neck w con Stat 04/22/24 18:20 CBC Auto Diff [Complete Blood Count AUTO DIFF] Stat 04/22/24 18:46 CMP [Comprehensive Metabolic Panel] Stat Discontinued Medications Clindamycin HCl (Clindamycin 150 Mg Capsule) 450 mg PO NOW ONE Stop: 04/22/24 19:00 Last Admin: 04/22/24 19:48 Dose: Not Given Documented By: Sodium Chloride (Normal Saline 0.9%) 1,000 mls @ 1,000 mls/hr IV BOLUS ONE Stop: 04/22/24 19:15 Last Admin: 04/22/24 18:24 Dose: Not Given Documented By: JOHNNY Ketorolac Tromethamine (Ketorolac 30 Mg/Ml Vial) 15 mg IV NOW ONE Stop: 04/22/24 18:17 Last Admin: 04/22/24 18:27 Dose: 15 mg Documented By: JOHNNY Lidocaine/Prilocaine (Lidocaine/Prilocaine 5 Gm) 5 gm TOP NOW ONE Stop: 04/22/24 20:29 Last Admin: 04/22/24 20:35 Dose: 5 gm Documented By: Vital Signs Vital signs: Vital Signs - 8 hr 04/22/24 15:45 Temperature 98.7 F Pulse Rate 83 Respiratory Rate 20 Blood Pressure 124/57 L Pulse Oximetry 100 Oxygen Delivery Method Room Air MDM - Skin/Abscess/Foreign Bdy <Josette Jennings PA-C - Last Filed: 04/22/24 19:25> Medical Records Attestation: I reviewed the patient's medical records. Medical records narrative: 07/25/2023 patient was admitted to the ICU for acute hypercapnic respiratory failure. Lab Data 04/22/24 18:20 04/22/24 18:46 Labs: Lab Results 04/22/24 04/22/24 Range/Units 18:20 18:46 WBC 9.7 (4.5-11.0) X10^3/uL RBC 5.19 (4.0-5.2) X10^6/uL Hgb 16.1 H (12.0-16.0) g/dL Hct 47.3 H (36-46) % MCV 91.1 (80-100) fL MCH 30.9 (26-34) PG MCHC 34.0 (30-36) % RDW 14.4 (11.6-14.8) % Plt Count 259 (150-400) X10^3/uL Neut % (Auto) 69.8 (50-75) % Lymph % (Auto) 21.6 L (25-40) % [place] % (Auto) 5.4 (3-14) % Eos % (Auto) 2.3 (2-4) % Baso % (Auto) 0.9 (0-2) % Neut # (Auto) 6800 (0794-6600) /uL Lymph # (Auto) 2100 (7959-5011) /uL [place] # (Auto) 500 (0-900) /uL Eos # (Auto) 200 (0-450) /uL Baso # (Auto) 100 (0-100) /uL Sodium 136 L (137-145) mmol/L Potassium 4.4 (3.4-5.1) mmol/L Chloride 101 (98-107) mmol/L Carbon Dioxide 31 (22-32) mmol/L BUN 19 H (7-17) mg/dL Creatinine 0.71 (0.52-1.04) mg/dL Estimated GFR > 60 (>60) mL/min BUN/Creatinine Ratio 26.8 H (6-22) Glucose 293 H (70-100) mg/dL Calcium 9.0 (8.4-10.2) mg/dL Total Bilirubin 0.5 (0.2-1.3) mg/dL AST 22 (14-36) IU/L ALT 18 (<35) IU/L Alkaline Phosphatase 140 H (38-126) U/L Total Protein 6.9 (6.3-8.2) g/dL Albumin 3.9 (3.5-5.0) g/dL Globulin 3.0 (1.7-4.1) g/dL Albumin/Globulin Ratio 1.3 (1.0-2.8) MDM Narrative Medical decision making narrative: 58-year-old female with a past medical history of CHF, necrotizing soft tissue infection, type 2 diabetes, asthma, KEVAN, GERD, history of substance use who presents to the emergency department for right lower jaw abscess x8 days. Differential diagnosis includes but is not limited to abscess, cyst, periodontal abscess, Kofi's angina, cellulitis, nodule, skin cancer, etc. On exam the patient is in no acute distress, nontoxic appearing, vital signs age-appropriate. She has a well-circumscribed area of swelling overlying the right mandible concerning for sister abscess. She does have tenderness surrounding this area in the submandibular region and reports some deep neck pain. Given these findings and concern for potential deep space infection especially with her history of necrotizing fasciitis, we will proceed with CT soft tissue neck and check CBC and CMP, no indication for blood cultures or lactic as this time as vital signs are completely stable. We will treat pain with Toradol. Patient consented to me taking a picture of her lesion for me to share with my attending physician. Due to shift change, patient's labs and imaging and disposition we will need to be reviewed and determined by nighttime attending ED physician. Discussed case with Dr. Nuñez. We will treat with oral clindamycin at this time. I did offer to needle aspirate patient's lesion at this time however patient declines and states that she would prefer to have drainage after CT imaging is performed. Patient is stable for transfer to the main emergency department at this time. <Kiki Ramses Nuñez, DO - Last Filed: 04/22/24 22:38> Lab Data Labs: Lab Results 04/22/24 04/22/24 Range/Units 18:20 18:46 WBC 9.7 (4.5-11.0) X10^3/uL RBC 5.19 (4.0-5.2) X10^6/uL Hgb 16.1 H (12.0-16.0) g/dL Hct 47.3 H (36-46) % MCV 91.1 (80-100) fL MCH 30.9 (26-34) PG MCHC 34.0 (30-36) % RDW 14.4 (11.6-14.8) % Plt Count 259 (150-400) X10^3/uL Neut % (Auto) 69.8 (50-75) % Lymph % (Auto) 21.6 L (25-40) % [place] % (Auto) 5.4 (3-14) % Eos % (Auto) 2.3 (2-4) % Baso % (Auto) 0.9 (0-2) % Neut # (Auto) 6800 (6781-2695) /uL Lymph # (Auto) 2100 (6598-1994) /uL [place] # (Auto) 500 (0-900) /uL Eos # (Auto) 200 (0-450) /uL Baso # (Auto) 100 (0-100) /uL Sodium 136 L (137-145) mmol/L Potassium 4.4 (3.4-5.1) mmol/L Chloride 101 (98-107) mmol/L Carbon Dioxide 31 (22-32) mmol/L BUN 19 H (7-17) mg/dL Creatinine 0.71 (0.52-1.04) mg/dL Estimated GFR > 60 (>60) mL/min BUN/Creatinine Ratio 26.8 H (6-22) Glucose 293 H (70-100) mg/dL Calcium 9.0 (8.4-10.2) mg/dL Total Bilirubin 0.5 (0.2-1.3) mg/dL AST 22 (14-36) IU/L ALT 18 (<35) IU/L Alkaline Phosphatase 140 H (38-126) U/L Total Protein 6.9 (6.3-8.2) g/dL Albumin 3.9 (3.5-5.0) g/dL Globulin 3.0 (1.7-4.1) g/dL Albumin/Globulin Ratio 1.3 (1.0-2.8) MDM Narrative Medical decision making narrative: 58-year-old female with a past medical history of CHF, necrotizing soft tissue infection, type 2 diabetes, asthma, KEVAN, GERD, history of substance use who presents to the emergency department for right lower jaw abscess x8 days. Differential diagnosis includes but is not limited to abscess, cyst, periodontal abscess, Kofi's angina, cellulitis, nodule, skin cancer, etc. On exam the patient is in no acute distress, nontoxic appearing, vital signs age-appropriate. She has a well-circumscribed area of swelling overlying the right mandible concerning for sister abscess. She does have tenderness surrounding this area in the submandibular region and reports some deep neck pain. Given these findings and concern for potential deep space infection especially with her history of necrotizing fasciitis, we will proceed with CT soft tissue neck and check CBC and CMP, no indication for blood cultures or lactic as this time as vital signs are completely stable. We will treat pain with Toradol. Patient consented to me taking a picture of her lesion for me to share with my attending physician. Due to shift change, patient's labs and imaging and disposition we will need to be reviewed and determined by nighttime attending ED physician. Discussed case with Dr. Nuñez. We will treat with oral clindamycin at this time. I did offer to needle aspirate patient's lesion at this time however patient declines and states that she would prefer to have drainage after CT imaging is performed. Patient is stable for transfer to the main emergency department at this time. 04/22/2024 Dr. Nuñez: Patient signed out to myself while awaiting labs and CT imaging. Patient is seen and evaluated by myself. Patient does have hard indurated nodule looks like probably a cyst on her right chin does not appear to have any other extension into the soft tissue of the mouth or face. Labs and imaging were reviewed. Patient agreeable mass needle aspiration we did discuss it may recur. Labs show normal white count, hemoglobin of 16 platelets of 259. Sodium is 136, BUN is 19 electrolytes are otherwise appropriate glucose is 293 alk-phos is 140. CT imaging shows superficial subcutaneous fat lesion measuring 1.1 x 1.3 x 1.4 cm potentially represents infected sebaceous cyst would be amenable to direct needle aspiration true and false vocal cords appear to be potentially somewhat edematous, piriformis sinus, epiglottis, vallecula and tongue base all appeared normal, questionable laryngitis. Discussed with the patient for needle aspiration, would also recommend oral antibiotics. Patient has multiple allergy to medications but appear would be amenable to clindamycin. Patient has been on azithromycin. She was unsure if she wanted to switch. She was agreeable to needle aspiration. Discharge Plan Departure Patient Disposition: Home Clinical Impression: Infected cyst of skin Activity Restrictions/Additional Instructions: Follow up for recheck with your physician. You appear to have an infected cyst. Cyst can sometimes reoccur so if this is the case please follow up to have it fully excise with surgery. I would recommend stopping the azithromycin and starting clindamycin. Take oral antibiotics until completed. Prescription printed. Wound Care: Keep wound(s) clean and dry. Wash daily with soap and water only. Do not use over the counter products (alcohol or peroxide)on the wounds unless instructed by a physician. Return if fever greater than 100.4 Fahrenheit, increased swelling, increasing pain or worsening symptoms such as increased discharge or spreading redness. Prescriptions: New clindamycin HCl 300 mg capsule 300 mg PO Q6H 7 Days Qty: 28 0RF No Action ibuprofen 800 mg tablet 800 mg PO TID acetaminophen 325 MG tablet 325 - 650 mg PO Q6HP PRN (Reason: pain) omeprazole 20 mg capsule,delayed release(DR/EC) 20 mg PO DAILY Combivent Respimat 20-100 mcg/actuation mist 1 puff inhalation 4XD polyvinyl alcohol [Artificial Tears (polyvin alc)] 1.4 % drops 1 drp EYE-LEFT 4-6XD Qty: 15 0RF levothyroxine 175 mcg tablet 175 mcg PO DAILY metformin 500 mg tablet 1,000 mg PO BID montelukast 10 mg tablet 10 mg PO DAILY Jardiance 10 mg tablet 10 mg PO DAILY furosemide [Lasix] 20 mg tablet 20 mg PO DAILY Qty: 30 0RF Referrals: Johnnie Mary MD [Physician] - Miscellaneous,DoctorMD [Primary Care Provider] - Stand Alone Forms: Patient Portal/API/Survey
--- NOTE | 2024-04-22 18:16 | DI.CT.S_ITS ---
PROCEDURE: CT SOFT TISSUE NECK W CON INDICATIONS: visible abscess/cyst R lower chin; concern deeper infx TECHNIQUE: After the administration of intravenous contrast, 3.0 mm axial sections acquired from the sella to the aortic arch. Additional oblique axial 3.0 mm sections acquired through the pharynx. 3 mm thick coronal and sagittal reformats were generated. For radiation dose reduction, the following was used: automated exposure control. COMPARISON: None. FINDINGS: Image quality: Excellent. Lymph nodes: No enlarged lymph nodes seen throughout the neck. Vessels: Visualized vasculature appears patent. Neck spaces: In the submental region anteriorly and to the right, beneath the right anterior body of the mandible, is a lesion very superficially in the subcutaneous fat which also results in a contour bulging of the skin, measuring 1.1 x 1.3 x 1.4 cm. It may potentially represent a infected sebaceous cyst. It would be amenable to direct needle aspiration, as it results in obvious skin bulge. The oropharynx, nasopharynx, and pharynx demonstrate no mucosal lesions. The true and false vocal cords appear to potentially be somewhat edematous. pyriform sinuses, epiglottis, vallecula, and tongue base all appear normal. Extramucosal spaces appear unremarkable. Glands: The parotid and submandibular glands appear normal. Thyroid gland is unremarkable. Miscellaneous: Visualized brain and orbits appear normal. Lung apices appear clear. Superficial soft tissues appear normal. Bones: No suspicious bony lesions. Visualized sinuses and mastoids appear unremarkable. IMPRESSION: 1. The lesion in question is quite superficial, bulging the skin, in the right anterior submental region. It measures 1.4 cm in maximum diameter. Consider attempted needle aspiration. 2. Question laryngitis. Recommend clinical correlation. Dictated by: Helder Mancini M.D. on 04/22/2024 at 20:06 Approved by: Helder Mancini M.D. on 04/22/2024 at 20:10
[2024-04-22] MEDS: KETOROLAC 30 MG/ML VIAL 15 MG IV (18:27)
[2024-04-22 18:32] LABS: Add Manual Diff / Slide Review NO; Basophils Absolute Auto 100 /uL (0-100); Basophils Percent Auto 0.9 % (0-2); Eosinophils Absolute Auto 200 /uL (0-450); Eosinophils Percent Auto 2.3 % (2-4); Hematocrit 47.3 % (36-46); Hemoglobin 16.1 g/dL (12.0-16.0); Lymphocytes Absolute Auto 2100 /uL (1100-4500); Lymphocytes Percent Auto 21.6 % (25-40); Mean Corpuscular Hemoglobin 30.9 PG (26-34); Mean Corpuscular Volume 91.1 fL (80-100); Monocytes Absolute Auto 500 /uL (0-900); Monocytes Percent Auto 5.4 % (3-14); Neutrophils Absolute Auto 6800 /uL (1500-7000); Neutrophils Percent Auto 69.8 % (50-75); Platelet Count 259 X10^3/uL (150-400); Red Blood Cell Count 5.19 X10^6/uL (4.0-5.2); Red Cell Distribution Width 14.4 % (11.6-14.8); White Blood Cell Count 9.7 X10^3/uL (4.5-11.0)
[2024-04-22 19:16] LABS: Alanine Aminotransferase 18 IU/L (<35); Albumin 3.9 g/dL (3.5-5.0); Albumin Globulin Ratio 1.3 (1.0-2.8); Alkaline Phosphatase 140 U/L (38-126); Aspartate Aminotransferase 22 IU/L (14-36); BUN Creatinine Ratio 26.8 (6-22); Bilirubin Total 0.5 mg/dL (0.2-1.3); Blood Urea Nitrogen 19 mg/dL (7-17); Carbon Dioxide 31 mmol/L (22-32); Chloride 101 mmol/L (98-107); Estimated Glomerular Filt Rate > 60 mL/min (>60); Glucose 293 mg/dL (70-100); HEMOLYSIS 17 (0-50); Potassium 4.4 mmol/L (3.4-5.1); Sodium 136 mmol/L (137-145); Total Protein 6.9 g/dL (6.3-8.2)
--- NOTE | 2024-04-22 19:49 | PC.NURSE ---
Pt says that she is already on an ABX and doesn't know why she needs another. MD aware.
[2024-04-22] MEDS: LIDOCAINE/PRILOCAINE 5 GM TOP (20:35)
--- NOTE | 2024-04-22 21:30 | PC.NURSE ---
Dr Nuñez in to I/D pt's abscess
--- NOTE | 2024-04-22 22:17 | PC.NURSE ---
refused discharge vs
== END 2024-04-22 22:12 | disposition home or self-care (01) ==
PROVIDERS: Physician Assistant; Emergency Provider Emergency Medicine
DX: L72.8 Other follicular cysts of the skin and subcutaneous tissue (principal); L02.01 Cutaneous abscess of face; F17.210 Nicotine dependence, cigarettes, uncomplicated
CPT/HCPCS: 36415; 70491; 80053; 85025; 96374; 99284; J1885; Q9967

== ENCOUNTER 2024-11-01 16:26 | Emergency (ER) | payer OTHER, SELFPAY ==
[2023-07-25 20:05] VITALS: BMI 51.2
[2023-07-27 06:29] VITALS: PULSE 70; RESP 15; O2SAT 96
--- NOTE | 2024-11-01 16:40 | PC.NURSE ---
patient called for triage but patient was in the restroom.
[2024-11-01 17:03] VITALS: BP 119/71; PULSE 84; RESP 16; TEMP 36.2; O2SAT 96; BMI 40.7
== END 2024-11-01 22:29 | disposition left against medical advice (07) ==
PROVIDERS: Emergency Provider Emergency Medicine
CPT/HCPCS: 99281